=== PATIENT | male | born 1930 | race Asian ===

== ENCOUNTER 2016-03-10 12:05 | Emergency (ER) | payer MEDICARE, OTHER ==
--- NOTE | 2016-03-10 12:38 | ER Document Report ---
ED Medical Screen (RME) - General Stated Complaint: FALL DIZZY Notes: Patient presents emergency department after falling this am and a few days ago. He reports he is dizzy. I have greeted and performed a rapid initial assessment of this patient. A comprehensive ED assessment and evaluation of the patient, analysis of test results and completion of the medical decision making process will be conducted by additional ED providers. I have consulted the attending provider dr Medrano per [facility] guidelines TRAVEL OUTSIDE OF THE [place] IN LAST 30 DAYS: No - Related Data Allergies/Adverse Reactions: No Known Allergies Allergy (Verified 03/10/16 12:39) Past Medical History - Past Medical History Cardiac Medical History: Reports: Hx Hypercholesterolemia, Hx Hypertension Neurological Medical History: Denies: Hx Seizures Physical Exam - Vital signs Vitals: Temp Pulse Resp BP Pulse Ox 97.6 F 73 16 123/68 98 03/10/16 12:11 03/10/16 12:11 03/10/16 12:11 03/10/16 12:11 03/10/16 12:11 Course - Vital Signs Vital signs: Temp Pulse Resp BP Pulse Ox 97.6 F 73 16 123/68 98 03/10/16 12:11 03/10/16 12:11 03/10/16 12:11 03/10/16 12:11 03/10/16 12:11
[2016-03-10 13:28] LABS: BASOPHILS % (AUTO) 0.4 % (0-2); EOSINOPHILS % (AUTO) 1.3 % (0-6); HEMATOCRIT 42.3 % (37.9-51.0); HEMOGLOBIN 13.2 g/dL (13.5-17.0); HGB HCT DIFFERENCE -2.7; MEAN CORPUSCULAR HGB CONC 31.3 g/dL (32.0-36.0); MEAN CORPUSCULAR VOLUME 93 fl (80-97); RED BLOOD COUNT 4.55 10^6/uL (4.35-5.55); RED CELL DISTRIBUTION WIDTH 13.5 % (11.5-14.0); SEGMENTED NEUTROPHILS % (AUTO) 81.3 % (42-78); WHITE BLOOD COUNT 6.9 10^3/uL (4.0-10.5)
[2016-03-10 13:29] LABS: ABSOLUTE EOSINOPHILS # (AUTO) 0.1 10^3/uL (0.0-0.6); ABSOLUTE LYMPHOCYTES (AUTO) 0.8 10^3/uL (0.5-4.7); ABSOLUTE MONOCYTES (AUTO) 0.4 10^3/uL (0.1-1.4); ABSOLUTE NEUT (AUTO) 5.6 10^3/uL (1.7-8.2); APPEARANCE,URINE SLIGHTLY-CLOUDY; BILIRUBIN,URINE NEGATIVE (NEGATIVE); GLUCOSE, URINE NEGATIVE (NEGATIVE); KETONES,URINE NEGATIVE (NEGATIVE); LEUKOCYTE ESTERASE,URINE NEGATIVE (NEGATIVE); NITRITE,URINE NEGATIVE (NEGATIVE); PROTEIN,URINE NEGATIVE (NEGATIVE); URINE SPECIFIC GRAVITY 1.018; UROBILINOGEN,URINE NEGATIVE mg/dL (<2.0)
[2016-03-10 13:43] LABS: ALANINE AMINOTRANSFERASE 29 U/L (21-72); ALBUMIN 4.9 g/dL (3.5-5.0); ALKALINE PHOSPHATASE 84 U/L (38-126); ANION GAP 11 (5-19); ASPARTATE AMINO TRANSFERASE 22 U/L (17-59); BILIRUBIN,TOTAL 0.8 mg/dL (0.2-1.3); BLOOD UREA NITROGEN 31 mg/dL (7-20); CALCIUM 9.5 mg/dL (8.4-10.2); CARBON DIOXIDE 26 mmol/L (22-30); CHLORIDE 103 mmol/L (98-107); CREATINE KINASE 103 U/L (55-170); GLUCOSE 99 mg/dL (75-110); POTASSIUM 4.9 mmol/L (3.6-5.0); SODIUM 140.2 mmol/L (137-145); TOTAL PROTEIN 8.3 g/dL (6.3-8.2)
[2016-03-10 13:54] LABS: CREATINE KINASE MB 0.98 ng/mL (<4.55)
[2016-03-10 13:55] LABS: TROPONIN I < 0.012 ng/mL
--- NOTE | 2016-03-10 14:12 | ER Document Report ---
[id number] Mode of Arrival: Ambulatory Information source: Patient Notes: 85 yr old male presents with complaints of dizziness and fall just prior to arrival. Pt denies any headache, chest pain, sob, difficulty breathing or any other concerns. Pt notes that he felt dizzy and fell, but immediately got up. pt denies any other concerns. TRAVEL OUTSIDE OF THE [place] IN LAST 30 DAYS: No - HPI Onset: Just prior to arrival Onset/Duration: Sudden Quality of pain: No pain Severity: Mild Pain Level: Denies Associated symptoms: None Exacerbated by: Denies Relieved by: Denies Similar symptoms previously: Yes - has fallen 6 times in past 5 years - Related Data Allergies/Adverse Reactions: No Known Allergies Allergy (Verified 03/10/16 12:39) Past Medical History - Social History Smoking Status: Never Smoker Cigarette use (# per day): No Chew tobacco use (# tins/day): No Smoking Education Provided: No Frequency of alcohol use: None Drug Abuse: [place] Family History: Reviewed & Not Pertinent Patient has suicidal ideation: No Patient has homicidal ideation: No - Past Medical History Cardiac Medical History: Reports: Hx Hypercholesterolemia, Hx Hypertension Neurological Medical History: Denies: Hx Seizures Renal/ Medical History: Denies: Hx Peritoneal Dialysis Review of Systems - Review of Systems Notes: REVIEW OF SYSTEMS: CONSTITUTIONAL : Denies fever, chills, or sweats. Denies recent illness. EENT: Denies eye, ear, throat, or mouth pain or symptoms. Denies nasal or sinus congestion or discharge. Denies throat, tongue, or mouth swelling or difficulty swallowing. CARDIOVASCULAR: Denies chest pain. Denies palpitations or racing or irregular heart beat. Denies ankle edema. RESPIRATORY: Denies cough, cold, or chest congestion. Denies shortness of breath, difficulty breathing, or wheezing. GASTROINTESTINAL: Denies abdominal pain or distention. Denies nausea, vomiting , or diarrhea. Denies blood in vomitus, stools, or per rectum. Denies black, tarry stools. Denies constipation. GENITOURINARY: Denies difficulty urinating, painful urination, burning, frequency, blood in urine, or discharge. MUSCULOSKELETAL: Denies back or neck pain or stiffness. Denies joint pain or swelling. SKIN: Denies rash, lesions or sores. HEMATOLOGIC : Denies easy bruising or bleeding. LYMPHATIC: Denies swollen, enlarged glands. NEUROLOGICAL: admits to dizziness of a second that resolved PSYCHIATRIC: Denies anxiety or stress. Denies depression, suicidal ideation, or homicidal ideation. ALL OTHER SYSTEMS REVIEWED AND NEGATIVE. Dictation was performed using [employer] voice recognition software PHYSICAL EXAMINATION: GENERAL: Well-appearing, well-nourished and in no acute distress. HEAD: Atraumatic, normocephalic. EYES: Pupils equal round and reactive to light, extraocular movements intact, sclera anicteric, conjunctiva are normal. ENT: Nares patent, oropharynx clear without exudates. Moist mucous membranes. NECK: Normal range of motion, supple without lymphadenopathy LUNGS: Breath sounds clear to auscultation bilaterally and equal. No wheezes rales or rhonchi. HEART: Regular rate and rhythm without murmurs ABDOMEN: Soft, nontender, nondistended abdomen. No guarding, no rebound. No masses appreciated. Musculoskeletal: Normal range of motion, no pitting or edema. No cyanosis. NEUROLOGICAL: Cranial nerves grossly intact. Normal speech, normal gait. Normal sensory, motor exams PSYCH: Normal mood, normal affect. SKIN: right eyebrow 2 healing superfiical lacerations Physical Exam - Vital signs Vitals: Temp Pulse Resp BP Pulse Ox 97.6 F 73 16 123/68 98 03/10/16 12:11 03/10/16 12:11 03/10/16 12:11 03/10/16 12:11 03/10/16 12:11 Course - Re-evaluation Re-evalutation: 03/10/16 15:35 pt and do not wish to stay and want ot go home, I performed labs and imaging and patient appears stable. i do not beleive there is any life threatening concerns since he had a recent stress test and evaluation by express manager but i insist since he wants to go home that he see a neurologist and express manager. i reevlauted his labs from previous visit at [facility]. After performing a Medical Screening Examination, I estimate there is LOW risk for INTRACRANIAL HEMORRHAGE, ISCHEMIC CVA, MALIGNANT DYSRHYTHMIA, ACUTE CORONARY SYNDROME, MENINGITIS, PULMONARY EMBOLISM, or SEPSIS thus I consider the discharge disposition reasonable. The patient and I have discussed the diagnosis and risks, and we agree with discharging home with close follow-up with the understanding that symptoms and presentations can change. We also discussed returning to the Emergency Department immediately if new or worsening symptoms occur. We have discussed the symptoms which are most concerning (e.g., changing or worsening pain, weakness, vomiting, fever) that necessitate immediate return. - Vital Signs Vital signs: Temp Pulse Resp BP Pulse Ox 98 F 78 18 120/75 99 03/10/16 14:18 03/10/16 14:18 03/10/16 14:18 03/10/16 14:18 03/10/16 14:18 - Laboratory Result Diagrams: 03/10/16 13:00 03/10/16 13:00 Laboratory results interpreted by me: 03/10/16 03/10/16 13:00 13:00 Hgb 13.2 L MCHC 31.3 L Seg Neutrophils % 81.3 H Lymphocytes % 11.0 L BUN 31 H Creatinine 1.40 H Est GFR ( Amer) 58 L Est GFR (Non-Af Amer) 48 L Total Protein 8.3 H - Diagnostic Test Radiology reviewed: Image reviewed, Reports reviewed - EKG Interpretation by Me EKG shows normal: Sinus rhythm, [place], Intervals, QRS Complexes Discharge - Discharge Clinical Impression: Dizziness Fall Qualifiers: Encounter type: initial encounter Qualified Code(s): W19.XXXA - Unspecified fall, initial encounter Condition: Stable Disposition: HOME, SELF-CARE Instructions: Near Syncopal Episode ([facility]) Referrals: SHARLA WELLINGTON MD [ACTIVE STAFF] - Follow up tomorrow
[2016-03-10 14:38] VITALS: BP 120/75
--- NOTE | 2016-03-10 19:24 | EKG REPORT ---
SEVERITY:- NORMAL ECG - SINUS RHYTHM : Confirmed by: Elizabet Bell MD 10-Mar-2016 19:23:35
== END 2016-03-10 14:18 | disposition home or self-care (01) ==
LOC: ER 12:05
DX: R42 Dizziness and giddiness (principal); W19.XXXA Unspecified fall, initial encounter
CPT/HCPCS: 36415; 70450; 71020; 72125; 80053; 81001; 82550; 82553; 84484; 85025; 93005; 93010; 99284

== ENCOUNTER → 2016-03-22 | Outpatient (CLI) | payer MEDICARE, OTHER ==
--- NOTE | 2016-03-23 07:50 | CAROTID DOPPLER PRO FEE REPORT ---
CAROTID DUPLEX DOPPLER REPORT PATIENT NAME: JENNIFER DUONG ROOM#: DATE OF STUDY: 03/22/16 DATE OF : 1930 REFERRING MD: SHARLA WELLINGTON M.D. ORDER NO: [id number] TECHNOLOGIST: ELVIRA INDICATION: Syncope and TIA. STUDY: The color carotid duplex scan was performed with real time images and real time Doppler velocity measurements. Real time images indicated mild bilateral plaque formation. Doppler velocity measurements were as follows: MEASUREMENT: RIGHT LEFT CCA PSV (prox/mid) 71 cm/sec 88 cm/sec CCA PSV (distal) 47 cm/sec 68 cm/sec CCA EDV (prox/mid) 13 cm/sec 14 cm/sec CCA EDV (distal) 11 cm/sec 14 cm/sec ICA PSV (proximal) 66 cm/sec 49 cm/sec ICA PSV (distal) 82 cm/sec 74 cm/sec ICA EDV (proximal) 21 cm/sec 11 cm/sec ICA EDV (distal) 23 cm/sec 24 cm/sec ECA 84 cm/sec 84 cm/sec ICA/CCA RATIO: 1.7 1.1 Vertebrals are patent. Flow is cephalad. FINAL IMPRESSION: MILD BILATERAL PLAQUE FORMATION. LESS THAN 50% STENOTIC FLOW. INTERPRETING PHYSICIAN: SHARLA WELLINGTON M.D. /: LSUD TT: [id number] ID: [id number] /: [id number] TD: [id number] JOB: [id number] cc:SHARLA WELLINGTON M.D. >
== END ==
LOC: SP 12:27
PROVIDERS: ATTEND Specialist
DX: R55 Syncope and collapse (principal); R56.9 Unspecified convulsions
CPT/HCPCS: 93880

== ENCOUNTER 2017-03-31 11:36 | Emergency (ER) | payer MEDICARE, OTHER ==
[2017-03-31] MEDS ORDERED: IPRATROPIUM/ALBUTEROL 0.5-2.5 MG/3 ML AMPUL NEB ONE (12:19)
--- NOTE | 2017-03-31 12:21 | ER Document Report ---
ED Medical Screen (RME) - General Chief Complaint: Chest Congestion Stated Complaint: CONGESTION WITH COUGH Time Seen by Provider: 03/31/17 12:19 Mode of Arrival: Ambulatory Information source: Patient Notes: This is an 86-year-old man with a history of heart disease (pacemaker), dementia , gout who is brought into the emergency room because of cough productive of yellow sputum, low-grade fever and congestion. The patient is accompanied by his legal guardian: They deny significant shortness of breath, chest pain, abdominal pain, vomiting. Patient was seen at the NH and they sent the patient over because of the inability to get a chest x-ray. TRAVEL OUTSIDE OF THE [place] IN LAST 30 DAYS: No - HPI Onset: Yesterday Onset/Duration: Gradual Quality of pain: No pain Severity: None Pain Level: Denies Associated Symptoms: Chills, Cough (nonproductive), Other - Congestion. denies : Chest pain, Shortness of breath Exacerbated by: Denies Relieved by: Denies Similar symptoms previously: Yes Recently seen / treated by doctor: No - Related Data Smoking: Non-smoker Frequency of alcohol use: None Drug Abuse: None Allergies/Adverse Reactions: No Known Allergies Allergy (Verified 03/10/16 12:39) Past Medical History - General Information source: Patient - Social History Cigarette use (# per day): No Chew tobacco use (# tins/day): No Frequency of alcohol use: None Drug Abuse: None Lives with: Guardian Family history: None - Past Medical History Cardiac Medical History: Reports: Hx Hypercholesterolemia, Hx Hypertension Neurological Medical History: Denies: Hx Seizures Renal/ Medical History: Denies: Hx Peritoneal Dialysis Surgical Hx: Negative Review of Systems - Review of Systems Constitutional: Chills, Fever EENT: No symptoms reported Cardiovascular: No symptoms reported Respiratory: See HPI Gastrointestinal: No symptoms reported Genitourinary: No symptoms reported Male Genitourinary: No symptoms reported Musculoskeletal: No symptoms reported Skin: No symptoms reported Hematologic/Lymphatic: No symptoms reported Neurological/Psychological: No symptoms reported Physical Exam - Vital signs Vitals: Temp Pulse Resp BP Pulse Ox 100.0 F 91 18 127/75 H 93 03/31/17 11:47 03/31/17 11:47 03/31/17 11:47 03/31/17 11:47 03/31/17 11:47 Notes: Physical exam: GENERAL: 86-year-old man, alert and oriented 3, no acute distress HEAD: Atraumatic, normocephalic. EYES: Pupils equal round and reactive to light, extraocular movements intact, sclera anicteric, conjunctiva are normal. ENT: TMs normal, nares patent, oropharynx clear without exudates. Moist mucous membranes. NECK: Normal range of motion, supple without obvious mass or JVD. LUNGS: Breath sounds clear to auscultation bilaterally and equal. No wheezes rales or rhonchi. HEART: Regular rate and rhythm without murmurs, rubs or gallops. ABDOMEN: Soft, normoactive bowel sounds. No tenderness to palpation. No guarding, no rebound. No masses appreciated. EXTREMITIES: Normal range of motion, no pitting or edema. No clubbing or cyanosis. NEUROLOGICAL: Cranial nerves II through XII grossly intact. Normal speech, moving all extremities. PSYCH: Normal mood, normal affect. SKIN: Warm, Dry, normal turgor, no rashes or lesions noted. Course - Re-evaluation Re-evalutation: 03/31/17 14:05 Patient did get a nebulizer as a trial to see if you get any relief: He did not have much relief from that. The chest x-ray shows no pneumonia. He was started on Tamiflu for the flu. He looks quite stable for discharge. At the time of discharge, I have instructed the patient at the bedside with regards to return precautions and follow-up recommendations. The opportunity for questions was given. The patient has verbalized understanding of these instructions and the need for follow-up. 03/31/17 16:18 - Vital Signs Vital signs: Temp Pulse Resp BP Pulse Ox 98.9 F 84 20 132/69 H 97 03/31/17 14:05 03/31/17 14:05 03/31/17 14:05 03/31/17 14:05 03/31/17 14:05 - Diagnostic Test Radiology reviewed: Image reviewed, Reports reviewed - Chest x-ray is clear Doctor's Discharge - Discharge Clinical Impression: Influenza Condition: Stable Disposition: HOME, SELF-CARE Instructions: Influenza ([facility]) Additional Instructions: As we discussed, chest x-ray showed no evidence of pneumonia. You were started on Tamiflu in the ER. Take the Tamiflu as prescribed (take the second dose before bedtime tonight. Return to the emergency room for any worsening shortness of breath, difficulty breathing or any concerns or getting worse. Prescriptions: Oseltamivir Phosphate [Tamiflu 75 mg Capsule] 75 mg PO BID #9 capsule
--- NOTE | 2017-03-31 13:37 | RADIOLOGY REPORT (SQ) ---
EXAM DESCRIPTION: CHEST PA/LAT COMPLETED DATE/TIME: 03/31/2017 1:25 pm REASON FOR STUDY: cough, fever COMPARISON: None. EXAM PARAMETERS: NUMBER OF VIEWS: two views TECHNIQUE: Digital Frontal and Lateral radiographic views of the chest acquired. RADIATION DOSE: NA LIMITATIONS: none FINDINGS: LUNGS AND PLEURA: COPD. Pleural-parenchymal scarring in the right upper lobe. Lungs appe ar free of active infiltrates. Effusions. MEDIASTINUM AND HILAR STRUCTURES: No masses or contour abnormalities. HEART AND VASCULAR STRUCTURES: Heart normal size. No evidence for failure. BONES: Moderate thoracic spondylosis. HARDWARE: Left subclavian pacer with 1 lead in right atrium and 1 right ventricle. OTHER: No other significant finding. IMPRESSION: COPD without evidence of acute cardiopulmonary disease. TECHNICAL DOCUMENTATION: JOB ID: [id number] [employer]- All Rights Reserved
[2017-03-31 13:52] LABS: A TYPE INFLUENZA AG NEGATIVE (NEGATIVE); B INFLUENZA AG POSITIVE (NEGATIVE)
[2017-03-31] MEDS ORDERED: OSELTAMIVIR PHOSPHATE 75 MG CAPSULE PO ONE (14:03)
[2017-03-31 14:07] VITALS: BP 132/69
== END 2017-03-31 14:14 | disposition home or self-care (01) ==
LOC: ER 11:36
DX: J11.1 Influenza due to unidentified influenza virus with other respiratory manifestations (principal); R09.89 Other specified symptoms and signs involving the circulatory and respiratory systems; R05 Cough; F03.90 Unspecified dementia, unspecified severity, without behavioral disturbance, psychotic disturbance, mood disturbance, and anxiety; R50.9 Fever, unspecified
CPT/HCPCS: 94640; 99284; 87804; 71046; A9270 ×2; J3490; J7620

== ENCOUNTER 2018-04-14 11:15 | Emergency (ER) | payer MEDICARE, OTHER ==
--- NOTE | 2018-04-14 11:48 | ER Document Report ---
ED Extremity Problem, Lower - General Chief Complaint: Knee Injury Stated Complaint: LEFT KNEE PAIN Time Seen by Provider: 04/14/18 11:48 Notes: [id number] male to the emergency department for evaluation of left knee pain. Patient states that he tripped over a parking bumper. Landed on his left knee. Did not hit his head. Did not lose consciousness. Complaining of isolated pain in the left knee area. Patient did land on his hands as well and has a few scratches on his right knuckles. No hip pain. Having difficulty standing due to the pain in the left knee so EMS was called. TRAVEL OUTSIDE OF THE [place] IN LAST 30 DAYS: No - HPI Patient complains to provider of: Pain, Swelling Location: Knee Occurred: Just prior to arrival Where: [place] Onset/Duration: Sudden Quality of pain: Achy, Throbbing Severity: Moderate Pain Level: 1 Associated symptoms: Painful ambulation, Unable to bear weight. denies: Rapid heart rate Exacerbated by: Walking - Related Data Allergies/Adverse Reactions: No Known Allergies Allergy (Verified 03/10/16 12:39) Past Medical History - General Information source: Patient - Social History Smoking Status: Former Smoker Frequency of alcohol use: None Drug Abuse: None Lives with: Alone Family History: Reviewed & Not Pertinent Patient has suicidal ideation: No Patient has homicidal ideation: No - Past Medical History Cardiac Medical History: Reports: Hx Hypercholesterolemia, Hx Hypertension Neurological Medical History: Denies: Hx Seizures Renal/ Medical History: Denies: Hx Peritoneal Dialysis Past Surgical History: Reports: Hx Cardiac Catheterization - pacemaker Review of Systems - Review of Systems Notes: Constitutional: denies: Chills, Diaphoresis, Fever, Malaise, Weakness EENT: denies: Eye discharge, Blurred vision, Tearing, Double vision, Nose congestion, Nose discharge, Throat swelling, Mouth pain Cardiovascular: denies: Palpitations, Heart racing, Orthopnea, Dyspnea, Chest pain Respiratory: denies: Cough, Hurts to breathe, Wheezing, Shortness of breath Gastrointestinal: denies: Abdominal pain, Diarrhea, Nausea, Vomiting, Black stools, bright red blood in stool Genitourinary: denies: Burning, Dysuria, Discharge, Frequency, Flank pain, Hematuria Musculoskeletal: denies: Muscle pain, Muscle stiffness, back pain. Positive for left knee pain and left swelling. Hematologic/Lymphatic: denies: Anemia, Easy bleeding, Easy bruising, Blood clots Neurological/Psychological: denies: Confusion, Dementia, Depression, Loss of consciousness Skin: No lesions, no masses, no skin breakdown, no abscesses. +abrasions on right hand. Physical Exam - Vital signs Vitals: Temp Pulse Resp BP Pulse Ox 97.3 F 79 18 165/90 H 99 04/14/18 11:15 04/14/18 11:15 04/14/18 11:15 04/14/18 11:15 04/14/18 11:15 Interpretation: Normal - General General appearance: Appears well, Alert - HEENT Head: Normocephalic, Atraumatic Eyes: Normal Pupils: PERRL - Respiratory Respiratory status: No respiratory distress Chest status: Nontender Breath sounds: Normal Chest palpation: Normal - Cardiovascular Rhythm: Regular Heart sounds: Normal auscultation Murmur: No - Abdominal Inspection: Normal Distension: No distension Bowel sounds: Normal Tenderness: Nontender Organomegaly: No organomegaly - Back Back: Normal, Nontender - Extremities General upper extremity: Normal inspection, Nontender, Normal color, Normal ROM, Normal temperature General lower extremity: Normal inspection, Tender - Tenderness to palpation to the left knee area with small abrasion to the patella area. No deformity of the pelvis. No pelvic instability or hip pain. Full range of motion of all joints. Thinks may help 15, Edema, Normal color, Normal ROM, Normal temperature. No: Umesh's sign - Neurological Neuro grossly intact: Yes Cognition: Normal Orientation: AAOx4 [place] Coma Scale Eye Opening: Spontaneous [place] Coma Scale Verbal: Oriented [place] Coma Scale Motor: Obeys Commands [place] Coma Scale Total: 15 Speech: Normal Motor strength normal: LUE, RUE, LLE, RLE Sensory: Normal - Psychological Associated symptoms: Normal affect, Normal mood - Skin Skin Temperature: Warm Skin Moisture: Dry Skin Color: Normal, Other - Small abrasion noted to the left knee. Small abrasion noted to right hand dorsum digit #3 in digit #5. No laceration. Course - Re-evaluation Re-evalutation: 04/14/18 14:00 Knee X-Ray 04/14/18 11:48 IMPRESSION: Nondisplaced fracture of the proximal tibia. Lower Extremity CT 04/14/18 12:48 IMPRESSION: Nondisplaced fracture of the proximal tibia extending medial inferior to central superior the level the tibial spine. Similar appearance 2 plain radiographic findings. Joint effusion. 04/14/18 14:01 Patient has non-displaced tibial fx, consulted ortho, will see as outpatiient. Will d/c. - Vital Signs Vital signs: Temp Pulse Resp BP Pulse Ox 97.3 F 78 18 143/88 H 98 04/14/18 11:22 04/14/18 13:43 04/14/18 13:43 04/14/18 13:43 04/14/18 13:43 Discharge - Discharge Clinical Impression: Tibial plateau fracture, left Qualifiers: Encounter type: initial encounter Fracture type: closed Qualified Code(s): S82.142A - Displaced bicondylar fracture of left tibia, initial encounter for closed fracture Condition: Good Disposition: HOME, SELF-CARE Instructions: Ice & Elevation ([facility]), Use of Crutches ([facility]), Fractured Tibia ([facility]) Additional Instructions: You have a fracture to your tibia which is one of the long bones in the lower leg. You will need to be seen by orthopedic surgery as follow-up. At this time there is no surgery that is that is needed. Please wear the knee immobilizer. Elevate it and ice it. Pain medication as needed. Follow-up as instructed. Prescriptions: Docusate Sodium [Colace 100 mg Capsule] 100 mg PO DAILY 30 Days #60 capsule Hydrocodone/Acetaminophen [[place] 5-325 mg Tablet] 1 tab PO TID PRN 5 Days #20 tablet PRN Reason: For Breakthrough Pain Referrals: CHUCKY TORRES MD [ACTIVE STAFF] - Follow up in 3-5 days
--- NOTE | 2018-04-14 12:42 | RADIOLOGY REPORT (SQ) ---
EXAM DESCRIPTION: KNEE LEFT 3 VIEWS COMPLETED DATE/TIME: 04/14/2018 12:35 pm REASON FOR STUDY: fall COMPARISON: None. NUMBER OF VIEWS: Three views. TECHNIQUE: AP, lateral, and sunrise patella radiographic images acquired of the left knee. LIMITATIONS: None. FINDINGS: MINERALIZATION: Normal. BONES: Nondisplaced fracture of the proximal tibia extending inferior medial to the central tibial sp ine. JOINT: Joint effusion. SOFT TISSUES: No soft tissue swelling. No radio-opaque foreign body. OTHER: No other significant finding. IMPRESSION: Nondisplaced fracture of the proximal tibia. TECHNICAL DOCUMENTATION: JOB ID: [id number] [employer]- All Rights Reserved Reading location - IP/workstation name: [email or web address]
[2018-04-14] MEDS ORDERED: HYDROCODONE/ACETAMINOPHEN 5-325 MG TABLET PO ONE (13:21)
--- NOTE | 2018-04-14 13:48 | RADIOLOGY REPORT (SQ) ---
EXAM DESCRIPTION: CT LT LOWER EXTREMITY WITHOUT COMPLETED DATE/TIME: 04/14/2018 1:35 pm REASON FOR STUDY: fall, possible fracture, + pain COMPARISON: Plain radiograph which shows fracture. TECHNIQUE: Axial imaging performed through the tibia with reformatted coronal and sagittal imaging w indowed for bone and soft tissues. Images saved to PACS. 3D IMAGING: Were 3D images as MIP, SSD, or volume rendering performed at the work station? No All CT scanners at this facility use dose modulation, iterative reconstruction, and/or weight based d osing when appropriate to reduce radiation dose to as low as reasonably achievable (ALARA). [facility]: Dose Right [facility]: CareDose [facility]: Dose Right [facility]: Teradose 4D [facility]: [employer] LIMITATIONS: None. RADIATION DOSE: CT Rad equipment meets quality standard of care and radiation dose reduction techniq ues were employed. CTDIvol: 4.1 mGy. DLP: 213 mGy-cm. mGy. FINDINGS: SOFT TISSUES: Small joint effusion. BONES: Nondisplaced fracture extending inferior medial to central superior at the level of the is tib ial spine. No intra-articular loose bodies. MINERALIZATION: Osteopenia OTHER: No other significant finding. IMPRESSION: Nondisplaced fracture of the proximal tibia extending medial inferior to central superio r the level the tibial spine. Similar appearance 2 plain radiographic findings. Joint effusion. TECHNICAL DOCUMENTATION: JOB ID: [id number] Quality ID # [id number]: Final reports with documentation of one or more dose reduction techniques (e.g., Au tomated exposure control, adjustment of the mA and/or kV according to patient size, use of iterative reconstruction technique) 2010 [employer]- All Rights Reserved Reading location - IP/workstation name: [email or web address]
[2018-04-14] MEDS ORDERED: KETOROLAC TROMETHAMINE 60 MG/2 ML SDV IM ONE (14:05)
[2018-04-14 15:48] LABS: ABSOLUTE BASOPHILS # (AUTO) 0.1 10^3/uL (0.0-0.2); ABSOLUTE EOSINOPHILS # (AUTO) 0.1 10^3/uL (0.0-0.6); ABSOLUTE LYMPHOCYTES (AUTO) 0.9 10^3/uL (0.5-4.7); ABSOLUTE MONOCYTES (AUTO) 0.3 10^3/uL (0.1-1.4); ABSOLUTE NEUT (AUTO) 5.9 10^3/uL (1.7-8.2); BASOPHILS % (AUTO) 1.5 % (0-2); EOSINOPHILS % (AUTO) 1.5 % (0-6); HEMOGLOBIN 12.6 g/dL (13.5-17.0); LYMPHOCYTES % (AUTO) 12.1 % (13-45); MEAN CORPUSCULAR HEMOGLOBIN 31.3 pg (27.0-33.4); MEAN CORPUSCULAR HGB CONC 34.9 g/dL (32.0-36.0); MEAN CORPUSCULAR VOLUME 90 fl (80-97); MONOCYTES % (AUTO) 4.5 % (3-13); PLATELET COUNT 236 10^3/uL (150-450); RED BLOOD COUNT 4.01 10^6/uL (4.35-5.55); RED CELL DISTRIBUTION WIDTH 14.6 % (11.5-14.0); SEGMENTED NEUTROPHILS % (AUTO) 80.4 % (42-78); TOTAL CELLS COUNTED % (AUTO) 100 %; WHITE BLOOD COUNT 7.3 10^3/uL (4.0-10.5)
[2018-04-14 16:23] LABS: INTERNATIONAL RATION (INR) 1.05; PROTHROMBIN TIME 14.2 SEC (11.4-15.4)
[2018-04-14 16:24] LABS: PARTIAL THROMBOPLASTIN TIME 30.9 SEC (23.5-35.8)
[2018-04-14 16:30] LABS: ALANINE AMINOTRANSFERASE 22 U/L (21-72); ALBUMIN 4.3 g/dL (3.5-5.0); ALKALINE PHOSPHATASE 94 U/L (38-126); ANION GAP 9 (5-19); ASPARTATE AMINO TRANSFERASE 25 U/L (17-59); BILIRUBIN,DIRECT 0.4 mg/dL (0.0-0.4); BILIRUBIN,TOTAL 0.8 mg/dL (0.2-1.3); BLOOD UREA NITROGEN 27 mg/dL (7-20); CALCIUM 9.2 mg/dL (8.4-10.2); CARBON DIOXIDE 27 mmol/L (22-30); CHLORIDE 105 mmol/L (98-107); GLUCOSE 96 mg/dL (75-110); POTASSIUM 4.1 mmol/L (3.6-5.0); SODIUM 141.1 mmol/L (137-145); TOTAL PROTEIN 7.6 g/dL (6.3-8.2)
[2018-04-14 17:34] VITALS: BP 152/79
== END 2018-04-14 17:36 | disposition other institution (70) ==
LOC: ER 11:15 → UNDOADMIN 15:22 → EH 15:22 → ER 17:36
DX: S82.142A Displaced bicondylar fracture of left tibia, initial encounter for closed fracture (principal); S60.412A Abrasion of right middle finger, initial encounter; S60.416A Abrasion of right little finger, initial encounter; W01.0XXA Fall on same level from slipping, tripping and stumbling without subsequent striking against object, initial encounter; Y92.481 Parking lot as the place of occurrence of the external cause; I10 Essential (primary) hypertension; Z87.891 Personal history of nicotine dependence
CPT/HCPCS: 99284; 96372; 36415; 85025; 85610; 85730; 80053; 73562; 73700; L1830; J1885; A9270

== ENCOUNTER 2018-04-16 13:30 | Emergency (ER) | payer MEDICARE, OTHER ==
[2018-04-16] MEDS ORDERED: HYDROCODONE/ACETAMINOPHEN 5-325 MG TABLET PO ONE (14:13)
--- NOTE | 2018-04-16 14:14 | ER Document Report ---
ED Extremity Problem, Upper - General Chief Complaint: Arm Pain Stated Complaint: FALL/RIGHT ELBOW PAIN Time Seen by Provider: 04/16/18 14:13 TRAVEL OUTSIDE OF THE [place]. IN LAST 30 DAYS: No - Related Data Allergies/Adverse Reactions: No Known Allergies Allergy (Verified 03/10/16 12:39) Past Medical History - Social History Family History: Reviewed & Not Pertinent - Past Medical History Cardiac Medical History: Reports: Hx Hypercholesterolemia, Hx Hypertension Neurological Medical History: Denies: Hx Seizures Renal/ Medical History: Denies: Hx Peritoneal Dialysis Past Surgical History: Reports: Hx Cardiac Catheterization - pacemaker Physical Exam - Vital signs Vitals: Temp Pulse Resp BP Pulse Ox 98.4 F 94 18 141/85 H 95 04/16/18 13:42 04/16/18 13:42 04/16/18 13:42 04/16/18 13:42 04/16/18 13:42 Course - Vital Signs Vital signs: Temp Pulse Resp BP Pulse Ox 98.4 F 94 18 141/85 H 95 04/16/18 13:42 04/16/18 13:42 04/16/18 13:42 04/16/18 13:42 04/16/18 13:42
--- NOTE | 2018-04-16 14:22 | ER Document Report ---
ED Extremity Problem, Upper - General Chief Complaint: Arm Pain Stated Complaint: FALL/RIGHT ELBOW PAIN Time Seen by Provider: 04/16/18 14:13 Primary Care Provider: [facility] [Primary Care Provider] - Follow up as needed Information source: Patient Notes: Patient is an 87-year-old male who presents here after the patient had a witnessed fall 2 days ago. He initially was seen and evaluated and diagnosed with a tibial plateau fracture of the left leg and placed in a knee immobilizer. Patient states that the legs pain is under control but he started to have some persistent pain to the right elbow since the fall. He denies hitting his head, neck pain, rib pain, shortness of breath, midline back pain, nominal pain, pelvis pain. No cough, fevers, or vomiting. No x-ray of the elbow or arm was performed on previous visit. TRAVEL OUTSIDE OF THE [place] IN LAST 30 DAYS: No - Related Data Allergies/Adverse Reactions: No Known Allergies Allergy (Verified 03/10/16 12:39) Past Medical History - Social History Smoking Status: Unknown if Ever Smoked Family History: Reviewed & Not Pertinent - Past Medical History Cardiac Medical History: Reports: Hx Hypercholesterolemia, Hx Hypertension Neurological Medical History: Denies: Hx Seizures Renal/ Medical History: Denies: Hx Peritoneal Dialysis Past Surgical History: Reports: Hx Cardiac Catheterization - pacemaker Review of Systems - Review of Systems Constitutional: denies: Fever EENT: denies: Eye discharge, Nose discharge Cardiovascular: denies: Chest pain, Palpitations Respiratory: denies: Short of breath Gastrointestinal: denies: Vomiting Genitourinary: denies: Dysuria -: Yes All other systems reviewed and negative Physical Exam - Vital signs Vitals: Temp Pulse Resp BP Pulse Ox 98.4 F 94 18 141/85 H 95 04/16/18 13:42 04/16/18 13:42 04/16/18 13:42 04/16/18 13:42 04/16/18 13:42 Notes: Reviewed vital signs and nursing note as charted by RN. CONSTITUTIONAL: Alert and oriented and responds appropriately to questions. Well-appearing; well-nourished HEAD: Normocephalic; atraumatic EYES: PERRL ENT: Normal nose; no rhinorrhea; moist mucous membranes; pharynx without lesions noted NECK: Supple without meningismus; non-tender to the midline spine CARD: Regular rate and rhythm; no murmurs; symmetric distal pulses RESP: Normal chest excursion without splinting or tachypnea; breath sounds clear and equal bilaterally; no tenderness to anterior posterior palpation of the ribs ABD/GI: Normal bowel sounds; non-distended; soft, non-tender BACK: The back appears normal and is non-tender to palpation of the midline spine EXT: Patient's left leg is in a knee immobilizer. I gently remove the immobilizer. Some mild 2+ edema to the krishnan. Strong distal pulses with good coloration to the feet. Patient has some mild tenderness and swelling to the right elbow. Strong distal pulses and park guard strength on the right hand. No tenderness to the right shoulder, right forearm, wrist, or hand SKIN: No acute lesions noted NEURO: CN 2-12 intact; 5/5 bilateral upper and lower extremity strength with sensation intact to light touch PSYCH: The patient's mood and manner are appropriate. Grooming and personal hyg iene are appropriate Course - Re-evaluation Re-evalutation: 04/16/18 14:52 Given the history and physical examination, we will obtain an x-ray of the right elbow. No obvious compartment syndrome to the left leg noted. 04/16/18 15:08 X-ray as recorded. I have called and spoken to the information systems specialist Dr. Vincent who has seen and assessed the patient. He does not believe this requires operative repair but believes that the patient should be placed in a posterior mold. He has also looked at the tibial fracture from previously 2 days ago and states he does not believe that this requires operative intervention either. Family is at bedside and I will discussed the case. 04/16/18 16:56 Case management worker has seen and assessed the patient. She believes she can have the patient into [facility] long-term facility. Patient is agreeable with this plan. We have ordered a food tray and will have the patient here as a social hold. - Vital Signs Vital signs: Temp Pulse Resp BP Pulse Ox 98.4 F 94 18 141/85 H 95 04/16/18 13:42 04/16/18 13:42 04/16/18 13:42 04/16/18 13:42 04/16/18 13:42 Discharge - Discharge Clinical Impression: Accidental fall Qualifiers: Encounter type: initial encounter Qualified Code(s): W19.XXXA - Unspecified fall, initial encounter Fracture, supracondylar, elbow, right, closed Qualifiers: Encounter type: initial encounter Qualified Code(s): S42.411A - Displaced simple supracondylar fracture without intercondylar fracture of right humerus, initial encounter for closed fracture Condition: Fair Disposition: [facility]errals: [facility] [Primary Care Provider] - Follow up as needed
--- NOTE | 2018-04-16 14:29 | RADIOLOGY REPORT (SQ) ---
EXAM DESCRIPTION: ELBOW RIGHT OVER 2 VIEWS COMPLETED DATE/TIME: 04/16/2018 2:16 pm REASON FOR STUDY: arm pain/fall COMPARISON: None. NUMBER OF VIEWS: Four views. TECHNIQUE: AP, lateral, and both oblique radiographic images acquired of the right elbow. LIMITATIONS: None. FINDINGS: MINERALIZATION: Normal. BONES: Slightly displaced supracondylar fracture of the distal humerus. Degenerative changes at the elbow joint. JOINT: Prominent anterior fat pad suggest effusion. SOFT TISSUES: Soft tissue swelling. OTHER: No other significant finding. IMPRESSION: 1. Slightly displaced supracondylar fracture of the distal humerus. 2. Degenerative changes at the elbow. COMMENT: 1. Results of this examination were discussed with the emergency department provider on 04/16/2018 at 14:22 hours. TECHNICAL DOCUMENTATION: JOB ID: [id number] [employer]- All Rights Reserved Reading location - IP/workstation name: [email or web address]
[2018-04-17] MEDS ORDERED: LORAZEPAM 0.5 MG TABLET PO ONE (00:34)
[2018-04-17] MEDS ORDERED: ACETAMINOPHEN 325 MG TABLET PO ONE ×2 (00:36→21:01)
--- NOTE | 2018-04-17 04:08 | RADIOLOGY REPORT (SQ) ---
EXAM DESCRIPTION: XR CHEST 1 VIEW COMPLETED DATE/TME: 04/17/2018 03:41 CLINICAL HISTORY: 87 years, Male, Cough COMPARISON: 03/31/2017 chest NUMBER OF VIEWS: 1 TECHNIQUE: Portable chest LIMITATIONS: None. FINDINGS: Heart size at the upper limits of normal but stable. Ectasia thoracic aorta. Osteopenia. Right greater than left apical pleural thickening and scarring. Underlying emphysema. Left-sided pacing device. No pneumothorax IMPRESSION: Underlying emphysema with biapical pleural thickening/scarring. No acute cardiopulmonary process copyright 2010 [employer]- All Rights Reserved
[2018-04-17] MEDS ORDERED: FUROSEMIDE 40 MG TABLET ONE (05:35)
[2018-04-17] MEDS: AMLODIPINE BESYLATE 5 MG TABLET PO SCH (09:21)
[2018-04-17] MEDS: DONEPEZIL HCL 5 MG TABLET PO SCH (09:21)
[2018-04-17] MEDS: FERROUS SULFATE 325 MG TABLET PO SCH (09:21)
[2018-04-17] MEDS: FUROSEMIDE 20 MG TABLET PO SCH (09:25)
--- NOTE | 2018-04-17 10:03 | ER Document Report ---
Doctor's Note Notes: 04/17/18 10:01 Patient seen and examined. He did have some breakfast this morning. He states his pain in his elbow and knee are well controlled. He denies any issues at this time. Awaiting placement. Head is normocephalic. Heart is regular rate and rhythm. Lungs are clear to auscultation bilaterally. Right upper extremity has a posterior OCL in place. Fingers show good capillary refill and intact sensation. Patient's left lower extremity is in a knee immobilizer, distally intact. Plan is to discharge for placement when a bed is available.
[2018-04-18 06:58] VITALS: BP 121/65
[2018-04-18] MEDS: AMLODIPINE BESYLATE 5 MG TABLET PO SCH (09:23)
[2018-04-18] MEDS: DONEPEZIL HCL 5 MG TABLET PO SCH (09:23)
[2018-04-18] MEDS: FERROUS SULFATE 325 MG TABLET PO SCH (09:25)
[2018-04-18] MEDS: FUROSEMIDE 20 MG TABLET PO SCH (09:25)
--- NOTE | 2018-04-18 10:03 | ER Document Report ---
Doctor's Note Notes: 04/18/18 10:01 Patient interviewed and examined. He states his pain is well controlled. Declines any stronger pain medication at this time. Eating and drinking normally. Comfortable with discharge plan to SNF. Heart is regular rate and rhythm. Lungs are clear to auscultation bilaterally. Examination right upper extremity yields OCL still in place. Mild edema the fingers but neurovascularly intact. Left lower extremity in knee immobilizer. Dorsalis pedis pulse 2+, sensation intact. Plan is to discharge to nursing facility today. POA and patient are on board with plan.
== END 2018-04-18 11:22 ==
LOC: ER 13:30
DX: S42.411A Displaced simple supracondylar fracture without intercondylar fracture of right humerus, initial encounter for closed fracture (principal); W18.30XA Fall on same level, unspecified, initial encounter
CPT/HCPCS: 99284; 73080; L1830; A9270 ×9

== ENCOUNTER 2018-04-30 07:31 | Day surgery (SDC) | payer MEDICARE, OTHER ==
[~2018-04-30 07:31] MED LIST: CEFAZOLIN 2 GM/D5W RTU 2 GM/50 ML RTUPB IV PRN
[2018-04-30 08:44] LABS: HEMATOCRIT 37.6 % (37.9-51.0); HEMOGLOBIN 12.7 g/dL (13.5-17.0); MEAN CORPUSCULAR HEMOGLOBIN 30.4 pg (27.0-33.4); MEAN CORPUSCULAR HGB CONC 33.7 g/dL (32.0-36.0); MEAN CORPUSCULAR VOLUME 90 fl (80-97); PLATELET COUNT 304 10^3/uL (150-450); RED BLOOD COUNT 4.17 10^6/uL (4.35-5.55); RED CELL DISTRIBUTION WIDTH 13.1 % (11.5-14.0); WHITE BLOOD COUNT 9.8 10^3/uL (4.0-10.5)
[2018-04-30] MEDS ORDERED: ALBUTEROL SULFATE 0.083% NEB 2.5 MG/3 ML AMPUL NEB ONE (08:46)
--- NOTE | 2018-04-30 08:48 | EKG REPORT ---
SEVERITY:- NORMAL ECG - SINUS RHYTHM : Confirmed by: Misty Espinosa 30-Apr-2018 08:47:17
[2018-04-30 09:01] LABS: ANION GAP 8 (5-19); BLOOD UREA NITROGEN 34 mg/dL (7-20); CALCIUM 9.1 mg/dL (8.4-10.2); CARBON DIOXIDE 28 mmol/L (22-30); CHLORIDE 102 mmol/L (98-107); GLUCOSE 107 mg/dL (75-110); POTASSIUM 4.7 mmol/L (3.6-5.0); SODIUM 137.7 mmol/L (137-145)
[2018-04-30] MEDS ORDERED: FENTANYL CITRATE INJ/PF 100 MCG/2 ML AMPUL ONE (09:01)
[2018-04-30] MEDS ORDERED: PROPOFOL INJ 200 MG/20 ML VIAL IV ONE (09:01)
[2018-04-30] MEDS ORDERED: DEXAMETHASONE SOD PHOSPHATE INJ 4 MG/1 ML VIAL ONE (09:01)
[2018-04-30] MEDS ORDERED: MIDAZOLAM 2 MG/2 ML INJ ONE (09:01)
[2018-04-30] MEDS ORDERED: ONDANSETRON HCL INJ/PF 4 MG/2 ML SDV ONE (09:01)
[2018-04-30] MEDS ORDERED: ACETAMINOPHEN 1,000 MG/100 ML RTUPB IV ONE (09:01)
[2018-04-30] MEDS ORDERED: BUPIVACAINE HCL 0.5%-EPI 1:200000 INJ/PF 30 ML VIAL ONE (09:45)
[2018-04-30] MEDS ORDERED: CEFAZOLIN INJ 1 GM VIAL ONE (09:51)
[2018-04-30] MEDS ORDERED: OXYCODONE-ACETAMINOPHEN 5-325 MG TABLET PO PRN ×2 (10:22)
[2018-04-30] MEDS ORDERED: FENTANYL CITRATE INJ/PF 100 MCG/2 ML AMPUL IV PRN ×3 (10:22)
[2018-04-30] MEDS ORDERED: ONDANSETRON HCL INJ/PF 4 MG/2 ML SDV IV PRN (10:22)
[2018-04-30] MEDS ORDERED: MEPERIDINE HCL/PF INJ 25 MG/1 ML DISP.SYRIN IV PRN (10:22)
[2018-04-30] MEDS ORDERED: MORPHINE SULFATE 10 MG/ML INJ IV PRN ×2 (10:22→12:03)
[2018-04-30] MEDS ORDERED: PROMETHAZINE HCL INJ 25 MG/1 ML VIAL IV PRN ×2 (10:22)
[2018-04-30] MEDS ORDERED: DIPHENHYDRAMINE HCL 50 MG/ML VIAL IV PRN (10:22)
--- NOTE | 2018-04-30 11:21 | Operative Report ---
Operative Report DATE OF SURGERY: 04/30/18 PREOPERATIVE DIAGNOSIS: Left medial tibial plateau fracture. Right supracondyl ar humerus fracture OPERATION: Open reduction internal fixation right supracondylar humerus fracture. Open reduction internal fixation left medial tibial plateau fracture SURGEON: CHUCKY TORRES ANESTHESIA: GA ESTIMATED BLOOD LOSS: 50 PROCEDURE: With the patient supine on the operative table left lower extremities prepped and draped in a sterile fashion. Under fluoroscopic guidance pins for the Stephanie 6.5 titanium screw set were placed across the medial plateau fracture from medial to lateral grabbing lateral cortex. There is an anatomic reduction of the fracture. Subsequently 2 6.5 screws were placed over these pins to secure the fracture reduction. The patient is now reprepped and draped involving the right upper extremity. The extremity is elevated for exsanguination tourniquet inflated 280 torr. A longitudinal incision was made over the medial aspect of the distal humeral metadiaphysis and sharp dissection was carried incision down to the ulnar nerve. This is identified and isolated along the surgical exposure and tagged with a vessel loop. Next the medial column of the humerus is identified. A Stephanie titanium medial distal humeral plate is applied to the distal fragment. A pin is then placed percutaneously through the lateral column for rotational stability. The medial plate is then secured to the distal humeral metaphysis in near-anatomic alignment. It secured with 3 screws proximally and 2 screws distally. Next a 4.0 cannulated screw was placed through the lateral epicondyle and extending up the lateral column to provide rotational stability. The construct and the hardware placement are reviewed fluoroscopically and felt to be adequate. The tourniquet is deflated. Hemostasis obtained with electrocautery. The wound is irrigated with bulb lavage. A subsequent closed using interrupted Vicryl followed by leif. A sterile compressive dressing is applied. The patient's return to the PACU in satisfactory condition.
[2018-04-30] MEDS ORDERED: ONDANSETRON 4 MG TAB.RAPDIS PO PRN (12:04)
--- NOTE | 2018-04-30 14:21 | RADIOLOGY REPORT (SQ) ---
EXAM DESCRIPTION: NO CHG FLUORO; TIBIA FIBULA LEFT COMPLETED DATE/TIME: 04/30/2018 2:08 pm REASON FOR STUDY: PERC PINNING LEFT TIB FIB ASST WITH FLUORO IN OR S82.201A UNSP FRACTURE OF SHAFT OF RIGHT TIBIA, INIT FOR DIANE S52.501A UNSP FRACTURE OF THE LOWER END OF RIGHT RADIUS, INI COMPARISON: None. FLUOROSCOPY TIME: 0.1 minute 2 images saved to PACS. TECHNIQUE: Intra-operative images acquired during surgical procedure to evaluate progress. NUMBER OF IMAGES: 2 LIMITATIONS: None. FINDINGS: 2 cancellous screws tibial plateau from medial approach. Alignment anatomic. IMPRESSION: IMAGE(S) OBTAINED DURING PROCEDURE. COMMENT: Quality ID 145: Final reports for procedures using fluoroscopy that document radiation exp osure indices, or exposure time and number of fluorographic images (if radiation exposure indices are not available) Please consult full operative report of the attending physician for description of the procedure. TECHNICAL DOCUMENTATION: JOB ID: [id number] [employer]- All Rights Reserved Reading location - IP/workstation name: [email or web address]
--- NOTE | 2018-04-30 14:21 | RADIOLOGY REPORT (SQ) ---
EXAM DESCRIPTION: NO CHG FLUORO; TIBIA FIBULA LEFT COMPLETED DATE/TIME: 04/30/2018 2:08 pm REASON FOR STUDY: PERC PINNING LEFT TIB FIB ASST WITH FLUORO IN OR S82.201A UNSP FRACTURE OF SHAFT OF RIGHT TIBIA, INIT FOR DIANE S52.501A UNSP FRACTURE OF THE LOWER END OF RIGHT RADIUS, INI COMPARISON: None. FLUOROSCOPY TIME: 0.1 minute 2 images saved to PACS. TECHNIQUE: Intra-operative images acquired during surgical procedure to evaluate progress. NUMBER OF IMAGES: 2 LIMITATIONS: None. FINDINGS: 2 cancellous screws tibial plateau from medial approach. Alignment anatomic. IMPRESSION: IMAGE(S) OBTAINED DURING PROCEDURE. COMMENT: Quality ID 145: Final reports for procedures using fluoroscopy that document radiation exp osure indices, or exposure time and number of fluorographic images (if radiation exposure indices are not available) Please consult full operative report of the attending physician for description of the procedure. TECHNICAL DOCUMENTATION: JOB ID: [id number] [employer]- All Rights Reserved Reading location - IP/workstation name: [email or web address]
--- NOTE | 2018-04-30 14:24 | RADIOLOGY REPORT (SQ) ---
EXAM DESCRIPTION: NO CHG FLUORO; ELBOW RIGHT AP/LAT COMPLETED DATE/TIME: 04/30/2018 2:08 pm; 04/30/2018 2:09 pm REASON FOR STUDY: ORIF RT ELBOW ASST WITH FLUORO IN OR S82.201A UNSP FRACTURE OF SHAFT OF RIGHT TIB IA, INIT FOR DIANE S52.501A UNSP FRACTURE OF THE LOWER END OF RIGHT RADIUS, INI COMPARISON: None. FLUOROSCOPY TIME: 0.6 minutes 3 images saved to PACS. TECHNIQUE: Intra-operative images acquired during surgical procedure to evaluate progress. NUMBER OF IMAGES: 3 LIMITATIONS: None. FINDINGS: Plate and screws fixation supracondylar fracture medial approach. Cancellous bone screw o verlying lateral epicondyle from distal approach. IMPRESSION: IMAGE(S) OBTAINED DURING PROCEDURE. COMMENT: Quality ID 145: Final reports for procedures using fluoroscopy that document radiation exp osure indices, or exposure time and number of fluorographic images (if radiation exposure indices are not available) Please consult full operative report of the attending physician for description of the procedure. TECHNICAL DOCUMENTATION: JOB ID: [id number] [employer]- All Rights Reserved Reading location - IP/workstation name: [email or web address]
--- NOTE | 2018-04-30 14:24 | RADIOLOGY REPORT (SQ) ---
EXAM DESCRIPTION: NO CHG FLUORO; ELBOW RIGHT AP/LAT COMPLETED DATE/TIME: 04/30/2018 2:08 pm; 04/30/2018 2:09 pm REASON FOR STUDY: ORIF RT ELBOW ASST WITH FLUORO IN OR S82.201A UNSP FRACTURE OF SHAFT OF RIGHT TIB IA, INIT FOR DIANE S52.501A UNSP FRACTURE OF THE LOWER END OF RIGHT RADIUS, INI COMPARISON: None. FLUOROSCOPY TIME: 0.6 minutes 3 images saved to PACS. TECHNIQUE: Intra-operative images acquired during surgical procedure to evaluate progress. NUMBER OF IMAGES: 3 LIMITATIONS: None. FINDINGS: Plate and screws fixation supracondylar fracture medial approach. Cancellous bone screw o verlying lateral epicondyle from distal approach. IMPRESSION: IMAGE(S) OBTAINED DURING PROCEDURE. COMMENT: Quality ID 145: Final reports for procedures using fluoroscopy that document radiation exp osure indices, or exposure time and number of fluorographic images (if radiation exposure indices are not available) Please consult full operative report of the attending physician for description of the procedure. TECHNICAL DOCUMENTATION: JOB ID: [id number] [employer]- All Rights Reserved Reading location - IP/workstation name: [email or web address]
[2018-04-30] MEDS ORDERED: DONEPEZIL HCL 5 MG TABLET PO SCH ×2 (15:00→22:00)
[2018-04-30] MEDS ORDERED: SUCCINYLCHOLINE CHLORIDE INJ 200 MG/10 ML VIAL ONE (15:38)
[2018-04-30] MEDS ORDERED: KETOROLAC TROMETHAMINE 60 MG/2 ML SDV ONE (15:38)
[2018-04-30] MEDS: FERROUS SULFATE 325 MG TABLET PO SCH (16:19)
[2018-04-30] MEDS: DOCUSATE SODIUM 100 MG CAPSULE PO SCH (16:19)
[2018-04-30] MEDS: FUROSEMIDE 20 MG TABLET PO SCH (16:24)
[2018-04-30] MEDS: AMLODIPINE BESYLATE 5 MG TABLET PO SCH (16:24)
[2018-04-30] MEDS ORDERED: ACETAMINOPHEN 325 MG TABLET PO PRN (16:59)
[2018-04-30] MEDS: RINGERS SOLUTION,LACTATED 1,000 ML IV PRN (17:05)
[2018-04-30] MEDS: CEFAZOLIN 2 GM/D5W RTU 2 GM/50 ML RTUPB IV SCH (17:06)
[2018-04-30] MEDS: HYDROCODONE/ACETAMINOPHEN 5-325 MG TABLET PO PRN (22:22)
[2018-05-01] MEDS: RINGERS SOLUTION,LACTATED 1,000 ML IV PRN (00:07)
[2018-05-01] MEDS: CEFAZOLIN 2 GM/D5W RTU 2 GM/50 ML RTUPB IV SCH (02:59)
[2018-05-01] MEDS: HYDROCODONE/ACETAMINOPHEN 5-325 MG TABLET PO PRN (05:06)
[2018-05-01 06:47] LABS: HEMATOCRIT 31.6 % (37.9-51.0); HEMOGLOBIN 10.8 g/dL (13.5-17.0); MEAN CORPUSCULAR HEMOGLOBIN 30.9 pg (27.0-33.4); MEAN CORPUSCULAR HGB CONC 34.3 g/dL (32.0-36.0); MEAN CORPUSCULAR VOLUME 90 fl (80-97); PLATELET COUNT 262 10^3/uL (150-450); RED BLOOD COUNT 3.51 10^6/uL (4.35-5.55); RED CELL DISTRIBUTION WIDTH 13.2 % (11.5-14.0); WHITE BLOOD COUNT 11.4 10^3/uL (4.0-10.5)
--- NOTE | 2018-05-01 06:55 | PDOC TRANSFER SUMMARY ---
General - Admit/Disc Date/PCP Admission Date/Primary Care Provider: 04/30/18 07:[facility] Discharge Date: 05/01/18 - Discharge Diagnosis (2) Right supracondylar humerus fracture Is this a current diagnosis for this admission?: Yes - Additional Information Home Medications: Amlodipine Besylate [Norvasc 5 mg Tablet] 5 mg PO DAILY 04/30/18 Docusate Sodium [Colace] 100 mg PO DAILY 04/30/18 Donepezil HCl [Aricept] 5 mg PO DAILY 04/30/18 Ferrous Sulfate [Feosol 325 mg Tablet] 325 mg PO DAILY 04/30/18 Furosemide [Lasix 20 mg Tablet] 20 mg PO DAILY 04/30/18 Hydrocodone Bit/Acetaminophen [Hydrocodon-Acetaminophen 5-325] 1 tab PO Q8HP PRN 04/30/18 History of Present Illness Admission Date/PCP: 04/30/18 07:31 [facility] History of Present Illness: JENNIFER DUONG is a 87 year old male Hospital Course Hospital Course: Patient is an 87-year-old male presented status post a fall with a right supracondylar humerus fracture and a left medial tibial plateau fracture. Physical Exam Vital Signs: Temp Pulse Resp BP Pulse Ox 36.6 C 72 16 136/77 H 98 04/30/18 23:53 04/30/18 23:53 04/30/18 23:53 04/30/18 23:53 04/30/18 23:53 Intake & Output 04/29/18 04/30/18 05/01/18 06:59 06:59 06:59 Intake Total 4542 Output Total 5 Balance 4537 Weight 81.6 kg General appearance: PRESENT: no acute distress, thin Head exam: PRESENT: normocephalic Respiratory exam: PRESENT: unlabored Cardiovascular exam: PRESENT: RRR Pulses: PRESENT: normal radial pulses, +1 pedal pulses bilateral Vascular exam: PRESENT: normal capillary refill GI/Abdominal exam: PRESENT: soft Rectal exam: PRESENT: deferred Extremities exam: PRESENT: other - Left tibial plateau region with an OpSite dressing medially and some dried drainage which seems to be stopped. Right upper extremity with compression dressing and intact neurovascular examination of the hand. Neurological exam: PRESENT: alert, awake, oriented to person, oriented to place, oriented to time, oriented to situation. ABSENT: motor sensory deficit Psychiatric exam: PRESENT: appropriate affect, normal mood. ABSENT: homicidal ideation, suicidal ideation Skin exam: PRESENT: dry, intact, warm. ABSENT: cyanosis, rash Results Laboratory Results: 05/01/18 06:30 04/30/18 04/30/18 05/01/18 08:25 08:25 06:30 WBC 9.8 11.4 H RBC 4.17 L 3.51 L Hgb 12.7 L 10.8 L Hct 37.6 L 31.6 L MCV 90 90 MCH 30.4 30.9 MCHC 33.7 34.3 RDW 13.1 13.2 Plt Count 304 262 Sodium 137.7 Potassium 4.7 Chloride 102 Carbon Dioxide 28 Anion Gap 8 BUN 34 H Creatinine 1.16 Est GFR ( Amer) > 60 Est GFR (Non-Af Amer) > 60 Glucose 107 Calcium 9.1 Impressions: Elbow X-Ray 04/30/18 00:00 IMPRESSION: IMAGE(S) OBTAINED DURING PROCEDURE. Fluoroscopy 04/30/18 00:00 IMPRESSION: IMAGE(S) OBTAINED DURING PROCEDURE. Tibia/Fibula X-Ray 04/30/18 00:00 IMPRESSION: IMAGE(S) OBTAINED DURING PROCEDURE. Status: Imported from PACS Transfer Plan - Disposition Transfer Plan: Patient to be transferred to [facility] from. Physical therapy can work on touchdown weightbearing restriction on the left lower extremity. This may entail a restriction of bed to chair mobilization. Occupational therapy can work on active range of motion of the right elbow with both flexion extension as well as pronation supination. Qualifiers - * PATIENT BEING DISCHARGED WITH ANY OF THE FOLLOWING DIAGNOSIS: No VTE patient discharged on overlapping Therapy?: Yes Plan Discharge Plan: Patient follow-up with Dr. Falcon [facility] for surgery in 2 weeks for staple removal. Time Spent: Less than 30 Minutes
[2018-05-01 07:12] LABS: ANION GAP 6 (5-19); BLOOD UREA NITROGEN 34 mg/dL (7-20); CALCIUM 8.7 mg/dL (8.4-10.2); CARBON DIOXIDE 30 mmol/L (22-30); CHLORIDE 102 mmol/L (98-107); GLUCOSE 118 mg/dL (75-110); SODIUM 137.5 mmol/L (137-145)
[2018-05-01] MEDS: FUROSEMIDE 20 MG TABLET PO SCH (09:51)
[2018-05-01] MEDS: FERROUS SULFATE 325 MG TABLET PO SCH (09:51)
[2018-05-01] MEDS: AMLODIPINE BESYLATE 5 MG TABLET PO SCH (09:51)
[2018-05-01] MEDS: DOCUSATE SODIUM 100 MG CAPSULE PO SCH (09:51)
[2018-05-01] MEDS ORDERED: ASPIRIN 81 MG TABLET, ENT COATED PO SCH (10:00)
[2018-05-01 13:33] VITALS: BP 102/52
--- NOTE | 2018-05-02 19:28 | Discharge Summary ---
Discharge Summary (SDC) - Discharge Final Diagnosis: left tibia, right humerus fractures Date of Surgery: 04/30/18 Condition: Good Referrals: CHUCKY TORRES MD [ACTIVE STAFF] - 05/15/18 3:15 pm Respiratory Treatments at Home: Deep Breathing/Coughing Discharge Activity: Other - nwb LLE Report the Following to Your Physician Immediately: Shortness of Breath, Fever over 101 Degrees, Drainage-Foul Smelling
== END 2018-05-01 16:14 | disposition home or self-care (01) ==
LOC: 4S 07:31 → INOR 07:31 → UNDOADMIN 07:31 → ASU 1 07:31 → UNDOADMOB 07:31 → EDSTATUS 11:00 → 4S 12:56 → INOR 12:56 → PREINTOOBSV 14:37 → ASU 1 05-01 07:31 → UNDODISOB 05-01 16:14 → UNDODISIN 05-01 16:14
PROVIDERS: ATTEND Orthopaedic Surgery
DX: S42.411A Displaced simple supracondylar fracture without intercondylar fracture of right humerus, initial encounter for closed fracture (principal); S82.142A Displaced bicondylar fracture of left tibia, initial encounter for closed fracture; W19.XXXA Unspecified fall, initial encounter; Y92.481 Parking lot as the place of occurrence of the external cause
CPT/HCPCS: 24545; 36415 ×2; 85027 ×2; 80048 ×2; 73070; 73590; 93005; 93010; 97530; 97163; 27532; C1713 ×7; C1769 ×2; A9270 ×10; J2250; J3490; J0690 ×3; J1100; J1885; J3010; J0330; J2405; J7120 ×2; J2704; J0131; 01392

== ENCOUNTER 2018-05-24 10:50 | Inpatient (IN) | payer MEDICARE, OTHER ==
[2018-05-24] MEDS ORDERED: FENTANYL CITRATE INJ/PF 100 MCG/2 ML AMPUL IV ONE (11:11)
--- NOTE | 2018-05-24 11:40 | RADIOLOGY REPORT (SQ) ---
EXAM DESCRIPTION: HIP LEFT AP/LATERAL COMPLETED DATE/TIME: 05/24/2018 11:27 am REASON FOR STUDY: bed 10-s/p fall +tenderness ?deformity COMPARISON: None. NUMBER OF VIEWS: Two views. TECHNIQUE: AP pelvis and additional frog-leg view of the left hip. LIMITATIONS: None. FINDINGS: MINERALIZATION: Normal. LEFT HIP: There is a comminuted and displaced intertrochanteric fracture of the left hip. RIGHT HIP: No fracture or dislocation. No worrisome bone lesions. PUBIS AND ISCHIUM: No fracture. PELVIS: No fracture. SACRUM: No fracture or dislocation. No worrisome bone lesions. LOWER LUMBAR SPINE: No fracture or dislocation. No worrisome bone lesions. No significant disc disea se. SOFT TISSUES: No findings. OTHER: No other significant finding. IMPRESSION: There is a comminuted and displaced intertrochanteric fracture of the left hip. TECHNICAL DOCUMENTATION: JOB ID: [id number] [employer]- All Rights Reserved Reading location - IP/workstation name: [email or web address]
--- NOTE | 2018-05-24 11:43 | ER Document Report ---
ED Hip Pain/Injury - General Chief Complaint: Hip Pain Stated Complaint: FALL/HIP PAIN Time Seen by Provider: 05/24/18 11:11 Notes: Patient is an 87-year-old male who presents to the emergency department with a chief complaint of left hip pain. He is a resident at [facility] and yesterday he fell and hurt his left hip. The fall was unwitnessed. He is unable to move his left leg, but is able to dorsiflex and plantar flex his foot. They did an x-ray at [facility], but did not send him to the emergency department. Past medical history includes hyperlipidemia, hypertension, cardiac cath with pacemaker, right supracondylar humerus fracture, left medial tibial plateau fracture. He had an ORIF recently. According to the nurse, the patient states that he stood up, and he should not have stood [facility] the [facility]. Patient denies any chest pain, abdominal pain, headache, nausea, vomiting, or diarrhea. TRAVEL OUTSIDE OF THE [place] IN LAST 30 DAYS: No - Related Data Allergies/Adverse Reactions: No Known Allergies Allergy (Verified 05/24/18 11:15) Past Medical History - Social History Smoking Status: Unknown if Ever Smoked Family History: Reviewed & Not Pertinent Patient has suicidal ideation: No Patient has homicidal ideation: No - Past Medical History Cardiac Medical History: Reports: Hx Hypertension Denies: Hx Atrial Fibrillation, Hx Congestive Heart Failure, Hx Coronary Artery Disease, Hx Heart Attack, Hx Hypercholesterolemia, Hx Peripheral Vascular Disease, Hx Pulmonary Embolism, Hx Heart Murmur Pulmonary Medical History: Reports: Hx Asthma - Asthamatic bronchitis , Hx Bronchitis, Hx Pneumonia Denies: Hx COPD, Hx Respiratory Failure, Hx Sleep Apnea, Hx Tuberculosis Neurological Medical History: Denies: Hx Cerebrovascular Accident, Hx Seizures Renal/ Medical History: Denies: Hx Peritoneal Dialysis Malignancy Medical History: Denies Hx Lung Cancer Musculoskeletal Medical History: Denies Hx Arthritis, Denies Hx Fibromyalgia, Denies Hx Multiple Sclerosis, Denies Hx Muscular Dystrophy Psychiatric Medical History: Reports: Hx Dementia Traumatic Medical History: Reports: Hx Fractures - Curent L tibia and R elbow fx Past Surgical History: Reports: Hx Cardiac Catheterization - pacemaker, Hx Cardiac Surgery - pacemaker, Hx Orthopedic Surgery, Hx Pacemaker - 2017. Denies: Hx Appendectomy, Hx Bowel Surgery, Hx Cholecystectomy, Hx Coronary Artery Bypass Graft, Hx Gastric Bypass Surgery, Hx Herniorrhaphy, Hx Tonsillectomy Review of Systems - Review of Systems Notes: REVIEW OF SYSTEMS: CONSTITUTIONAL : Denies recent illness. Denies recent unintentional weight loss. Denies fever, chills, or sweats. EENT: Denies eye, ear, throat, or mouth pain, discharge, or symptoms. Denies nasal or sinus congestion. CARDIOVASCULAR: Denies chest pain. RESPIRATORY: Denies shortness of breath, cough, congestion, difficulty breathing, or wheezing. GASTROINTESTINAL: Denies nausea, vomiting, and diarrhea. Denies abdominal pain. Denies constipation. GENITOURINARY: Denies difficulty urinating, burning, blood in urine, urgency or frequency. MUSCULOSKELETAL: See HPI SKIN: Denies rash, itchiness, or lesions HEMATOLOGIC : Denies easy bruising or bleeding. LYMPHATIC: Denies swollen, painful, enlarged glands. NEUROLOGICAL: Denies no numbness or tingling denies weakness. Denies headache. Denies altered mental status. Denies alteration in speech. PSYCHIATRIC: Denies stress, anxiety, alteration in sleep patterns, or depression. All other systems reviewed and negative. Physical Exam - Vital signs Vitals: Temp Pulse Resp BP Pulse Ox 99.0 F 99 14 115/61 95 05/24/18 11:00 05/24/18 11:00 05/24/18 11:00 05/24/18 11:00 05/24/18 11:00 - Notes Notes: PHYSICAL EXAMINATION: GENERAL: Appears well, healthy, well-nourished, no acute distress. HEAD: Normocephalic, atraumatic. EYES: PERRL, conjunctiva normal, all extraocular movements intact, sclera nonicteric ENT: Moist mucous membranes. NECK: Supple, no noticeable swelling, redness, rash. Normal range of motion. LUNGS: Equal breath sounds bilaterally and clear to auscultation. No wheezes rales or rhonchi. CARDIOVASCULAR: S1-S2, regular rate, regular rhythm. Radial pulses 2+, normal. ABDOMEN: Normoactive bowel sounds. Soft, nontender, no guarding, no rebound tenderness, and no masses palpated. EXTREMITIES: Decreased range of motion to left lower extremity. Leg shortening to left extremity with internal rotation. Obvious deformity to right upper arm, where he had his ORIF. NEUROLOGICAL: 2 out of 5 strength in the left lower extremity. 5 out of 5 strength in other extremities. PSYCH: Normal mood, normal affect. SKIN: Warm, dry. No rash, lesions, ulcerations noted. Normal skin turgor. Course - Re-evaluation Re-evalutation: 05/24/18 12:35 Patient has a comminuted and displaced intertrochanteric fracture of the left hip. Patient had since the patient had an unwitnessed fall, he will be sent for CT of the head and neck to rule out any intracranial or cervical etiologies fractures. 05/24/18 13:[address] Falcon and he would like me to reorder a right humerus x-ray and left to the x-ray to make sure the ORIF's are intact. I will call the hospitalist service for medical management. 05/24/18 15:33 Patient's hematology is unremarkable other than being anemic at a hemoglobin of 10.7 and hematocrit of 31.2, which is most likely chronic. His chemistries are unremarkable. I have a very low suspicion for an myocardial infarction, as the patient is not complaining of any chest pain. CT of the head and C-spine are n egative for any acute findings. I spoke with Dr. Clay, the hospitalist. The patient will be admitted to the hospitalist service. - Vital Signs Vital signs: Temp Pulse Resp BP Pulse Ox 98.1 F 92 16 131/75 H 100 05/24/18 18:55 05/24/18 18:55 05/24/18 18:55 05/24/18 18:55 05/24/18 18:55 - Laboratory Result Diagrams: 05/24/18 14:27 05/24/18 14:27 Laboratory results interpreted by me: 05/24/18 05/24/18 14:27 14:27 RBC 3.52 L Hgb 10.7 L Hct 31.2 L Seg Neutrophils % 81.4 H Lymphocytes % 11.3 L Sodium 136.1 L BUN 26 H Est GFR (Non-Af Amer) 56 L Glucose 119 H ALT 20 L Alkaline Phosphatase 146 H - EKG Interpretation by Me Additional EKG results interpreted by me: 05/24/18 13:30 Sinus rhythm. Rate 97. NV 196; QRS 88; QT 364; QTC 463. No ST elevations or depressions. Discharge - Discharge Clinical Impression: Intertrochanteric fracture of left hip Qualifiers: Encounter type: initial encounter Fracture type: closed Fracture alignment: displaced Qualified Code(s): S72.142A - Displaced intertrochanteric fracture of left femur, initial encounter for closed fracture Condition: Fair Disposition: ADMITTED INPATIENT Admitting Provider: Danna (Hospitalist) Unit Admitted: Telemetry
--- NOTE | 2018-05-24 12:59 | RADIOLOGY REPORT (SQ) ---
EXAM DESCRIPTION: CT CERVICAL SPINE WITHOUT COMPLETED DATE/TIME: 05/24/2018 12:48 pm REASON FOR STUDY: fall COMPARISON: None. TECHNIQUE: Axial images acquired through the cervical spine without intravenous contrast. Images re viewed with lung, soft tissue and bone windows. Reconstructed coronal and sagittal MPR images review ed. Images stored on PACS. All CT scanners at this facility use dose modulation, iterative reconstruction, and/or weight based d osing when appropriate to reduce radiation dose to as low as reasonably achievable (ALARA). [facility]: Dose Right [facility]: CareDose [facility]: Dose Right [facility]: Teradose 4D [facility]: Smart Technologies RADIATION DOSE: CT Rad equipment meets quality standard of care and radiation dose reduction techniq ues were employed. CTDIvol: 10.3 mGy. DLP: 418 mGy-cm. mGy. LIMITATIONS: None. FINDINGS: ALIGNMENT: Anatomic. MINERALIZATION: Normal. VERTEBRAL BODIES: No fractures or dislocation. DISCS: Disc spaces are narrowed from C3 to C7. C7 and T1 appear to be fused. Marginal osteophytes a re present at multiple levels. FACETS, LATERAL MASSES, POSTERIOR ELEMENTS: Hypertrophic facet changes seen in the mid to upper cervi melany spine, right more than left. HARDWARE: None in the spine. VISUALIZED RIBS: No fractures. LUNG APICES AND SOFT TISSUES: No significant or acute findings. OTHER: No other significant finding. IMPRESSION: Multilevel degenerative disc disease and spondylosis. Facet arthropathy. C7 and T1 apolinar ear to be fused. TECHNICAL DOCUMENTATION: JOB ID: [id number] Quality ID # [id number]: Final reports with documentation of one or more dose reduction techniques (e.g., Au tomated exposure control, adjustment of the mA and/or kV according to patient size, use of iterative reconstruction technique) 2010 [employer]- All Rights Reserved Reading location - IP/workstation name: [email or web address]
--- NOTE | 2018-05-24 13:09 | RADIOLOGY REPORT (SQ) ---
EXAM DESCRIPTION: CT HEAD WITHOUT COMPLETED DATE/TIME: 05/24/2018 12:48 pm REASON FOR STUDY: fall COMPARISON: 03/10/2016 TECHNIQUE: Axial images acquired through the brain without intravenous contrast. Images reviewed wi th bone, brain and subdural windows. Additional sagittal and coronal reconstructions were generated. Images stored on PACS. All CT scanners at this facility use dose modulation, iterative reconstruction, and/or weight based d osing when appropriate to reduce radiation dose to as low as reasonably achievable (ALARA). [facility]: Dose Right [facility]: CareDose [facility]: Dose Right [facility]: Teradose 4D [facility]: Smart [employer] RADIATION DOSE: CT Rad equipment meets quality standard of care and radiation dose reduction techniq ues were employed. CTDIvol: 53.2 mGy. DLP: 991 mGy-cm. mGy. LIMITATIONS: None. FINDINGS: VENTRICLES: Normal size and contour. CEREBRUM: No masses. No hemorrhage. No midline shift. No evidence for acute infarction. Few scatte red areas of low density in the white matter most likely chronic small vessel ischemic changes. CEREBELLUM: No masses. No hemorrhage. No alteration of density. No evidence for acute infarction. EXTRAAXIAL SPACES: No fluid collections. No masses. ORBITS AND GLOBE: No intra- or extraconal masses. Normal contour of globe without masses. CALVARIUM: No fracture. PARANASAL SINUSES: No fluid or mucosal thickening. SOFT TISSUES: No mass or hematoma. OTHER: No other significant finding. IMPRESSION: No acute intracranial pathology. EVIDENCE OF ACUTE STROKE: NO. COMMENT: Quality ID # [id number]: Final reports with documentation of one or more dose reduction techniques (e.g., Automated exposure control, adjustment of the mA and/or kV according to patient size, use of iterative reconstruction technique) TECHNICAL DOCUMENTATION: JOB ID: [id number] [employer]- All Rights Reserved Reading location - IP/workstation name: [email or web address]
--- NOTE | 2018-05-24 14:38 | RADIOLOGY REPORT (SQ) ---
EXAM DESCRIPTION: TIBIA FIBULA LEFT COMPLETED DATE/TIME: 05/24/2018 2:11 pm REASON FOR STUDY: fall COMPARISON: 04/30/2018 NUMBER OF VIEWS: Two views. TECHNIQUE: Two radiographic images acquired of the left tibia and fibula to include the knee and ank le in at least one projection. LIMITATIONS: None. FINDINGS: MINERALIZATION: Normal. BONES: The tibial fracture lines are more prominent, part of the normal healing process from the [facility] ture 04/14/2018. Alignment remains satisfactory. No new fracture is seen. SOFT TISSUES: No obvious swelling or foreign body. OTHER: There are 2 cannulated screws in the proximal tibia. IMPRESSION: NEGATIVE STUDY OF THE LEFT TIBIA AND FIBULA. NO RADIOGRAPHIC EVIDENCE OF ACUTE INJURY. TECHNICAL DOCUMENTATION: JOB ID: [id number] [employer]- All Rights Reserved Reading location - IP/workstation name: [email or web address]
[2018-05-24 14:40] LABS: ABSOLUTE EOSINOPHILS # (AUTO) 0.1 10^3/uL (0.0-0.6); ABSOLUTE MONOCYTES (AUTO) 0.5 10^3/uL (0.1-1.4); ABSOLUTE NEUT (AUTO) 7.6 10^3/uL (1.7-8.2); BASOPHILS % (AUTO) 0.4 % (0-2); EOSINOPHILS % (AUTO) 1.3 % (0-6); HEMATOCRIT 31.2 % (37.9-51.0); HEMOGLOBIN 10.7 g/dL (13.5-17.0); LYMPHOCYTES % (AUTO) 11.3 % (13-45); MEAN CORPUSCULAR HEMOGLOBIN 30.4 pg (27.0-33.4); MEAN CORPUSCULAR HGB CONC 34.3 g/dL (32.0-36.0); MEAN CORPUSCULAR VOLUME 89 fl (80-97); MONOCYTES % (AUTO) 5.6 % (3-13); PLATELET COUNT 173 10^3/uL (150-450); RED BLOOD COUNT 3.52 10^6/uL (4.35-5.55); RED CELL DISTRIBUTION WIDTH 13.7 % (11.5-14.0); SEGMENTED NEUTROPHILS % (AUTO) 81.4 % (42-78); TOTAL CELLS COUNTED % (AUTO) 100 %; WHITE BLOOD COUNT 9.3 10^3/uL (4.0-10.5)
--- NOTE | 2018-05-24 14:40 | RADIOLOGY REPORT (SQ) ---
EXAM DESCRIPTION: HUMERUS RIGHT COMPLETED DATE/TIME: 05/24/2018 2:11 pm REASON FOR STUDY: fall COMPARISON: None. NUMBER OF VIEWS: Two views. TECHNIQUE: Two radiographic images were acquired of the right humerus to include elbow and shoulder in at least one projection. LIMITATIONS: None. FINDINGS: MINERALIZATION: Normal. BONES: No acute fracture or dislocation. Extensive hardware from previous ORIF. SOFT TISSUES: No obvious swelling or foreign body. OTHER: No other significant finding. IMPRESSION: NEGATIVE STUDY OF THE RIGHT HUMERUS. NO RADIOGRAPHIC EVIDENCE OF ACUTE INJURY. TECHNICAL DOCUMENTATION: JOB ID: [id number] [employer]- All Rights Reserved Reading location - IP/workstation name: [email or web address]
[2018-05-24 14:58] LABS: ALANINE AMINOTRANSFERASE 20 U/L (21-72); ALBUMIN 3.6 g/dL (3.5-5.0); ALKALINE PHOSPHATASE 146 U/L (38-126); ANION GAP 7 (5-19); ASPARTATE AMINO TRANSFERASE 20 U/L (17-59); BILIRUBIN,DIRECT 0.2 mg/dL (0.0-0.4); BILIRUBIN,TOTAL 0.8 mg/dL (0.2-1.3); BLOOD UREA NITROGEN 26 mg/dL (7-20); CALCIUM 8.8 mg/dL (8.4-10.2); CARBON DIOXIDE 27 mmol/L (22-30); CHLORIDE 102 mmol/L (98-107); GLUCOSE 119 mg/dL (75-110); POTASSIUM 4.4 mmol/L (3.6-5.0); SODIUM 136.1 mmol/L (137-145)
--- NOTE | 2018-05-24 16:19 | RADIOLOGY REPORT (SQ) ---
EXAM DESCRIPTION: CHEST SINGLE VIEW COMPLETED DATE/TIME: 05/24/2018 4:11 pm REASON FOR STUDY: preop COMPARISON: 04/17/2018 EXAM PARAMETERS: NUMBER OF VIEWS: One view. TECHNIQUE: Single frontal radiographic view of the chest acquired. RADIATION DOSE: NA LIMITATIONS: None. FINDINGS: LUNGS AND PLEURA: COPD. Stable right apical pleural thickening. No evidence of pulmonary edema or pneumonia. MEDIASTINUM AND HILAR STRUCTURES: No masses. Contour normal. HEART AND VASCULAR STRUCTURES: Stable heart size. Normal vasculature. BONES: No acute findings. HARDWARE: Unchanged position of left pacemaker. OTHER: No other significant finding. IMPRESSION: NO ACUTE RADIOGRAPHIC FINDING IN THE CHEST. TECHNICAL DOCUMENTATION: JOB ID: [id number] [employer]- All Rights Reserved Reading location - IP/workstation name: [email or web address]
--- NOTE | 2018-05-24 16:39 | PDOC H&P ---
History of Present Illness Admission Date/PCP: 05/24/18 16:02 DAMIR SIFUENTES MD History of Present Illness: JENNIFER DUONG is a 87 year old male with a PMH of HTN, dementia, hyperlipidemia, and recent ORIF for a knee fracture who was sent to the ER from [place]. Patient reportedly fell from the bed last night in [place]. A pelvic xray was done which showed left hip fracture and he was sent to the ER. Upon encounter, he is oriented to person which is apparently his baseline. Called patient's DPOA, Tirso Aguilar. He says patient is a DNR (no chest compressions or defibrillation) but is okay for short term/temporary ventilation of needed for surgery. Past Medical History Cardiac Medical History: Reports: Hypertension Denies: Atrial Fibrillation, Congestive Heart Failure, Coronary Artery Disease, Myocardial Infarction, Hyperlipidema, Peripheral Vascular Disease, Pulmonary Embolism, Heart Murmur Pulmonary Medical History: Reports: Asthma - Asthamatic bronchitis , Bronchitis, Pneumonia Denies: Chronic Obstructive Pulmonary Disease (COPD), Respiratory Failure, Sleep Apnea, Tuberculosis Neurological Medical History: Denies: Seizures Malignancy Medical History: Denies: Lung Cancer Musculoskeltal Medical History: Denies: Arthritis, Fibromyalgia Psychiatric Medical History: Reports: Dementia Past Surgical History Past Surgical History: Reports: Cardiac Catheterization - pacemaker, Orthopedic Surgery, Pacemaker - 2017 Denies: Appendectomy, Cholecystectomy, Coronary Artery Bypass Graft, Gastric Bypass Surgery, Herniorrhaphy, Tonsillectomy Social History Smoking Status: Unknown if Ever Smoked Hx Recreational Drug Use: No Hx Prescription Drug Abuse: No Family History Family History: Reviewed & Not Pertinent Parental Family History Reviewed: Yes - no premature CAD Children Family History Reviewed: No Sibling(s) Family History Reviewed.: No Medication/Allergy Home Medications: Amlodipine Besylate [Norvasc 5 mg Tablet] 5 mg PO DAILY 05/24/18 Divalproex Sodium [Depakote] 125 mg PO BID 05/24/18 Docusate Sodium [Colace 100 mg Capsule] 100 mg PO DAILY 05/24/18 Furosemide [Lasix 20 mg Tablet] 20 mg PO DAILYP PRN 05/24/18 Allergies/Adverse Reactions: No Known Allergies Allergy (Verified 05/24/18 11:15) Physical Exam Vital Signs: Temp Pulse Resp BP Pulse Ox 99.0 F 99 14 119/76 96 05/24/18 11:00 05/24/18 11:00 05/24/18 15:01 05/24/18 15:01 05/24/18 15:01 Intake & Output 05/23/18 05/24/18 05/25/18 06:59 06:59 06:59 Weight 140 lb 6.951 oz Results Laboratory Results: 05/24/18 14:27 05/24/18 14:27 05/24/18 05/24/18 14:27 14:27 WBC 9.3 RBC 3.52 L Hgb 10.7 L Hct 31.2 L MCV 89 MCH 30.4 MCHC 34.3 RDW 13.7 Plt Count 173 Seg Neutrophils % 81.4 H Lymphocytes % 11.3 L Monocytes % 5.6 Eosinophils % 1.3 Basophils % 0.4 Absolute Neutrophils 7.6 Absolute Lymphocytes 1.0 Absolute Monocytes 0.5 Absolute Eosinophils 0.1 Absolute Basophils 0.0 Sodium 136.1 L Potassium 4.4 Chloride 102 Carbon Dioxide 27 Anion Gap 7 BUN 26 H Creatinine 1.23 Est GFR ( Amer) > 60 Est GFR (Non-Af Amer) 56 L Glucose 119 H Calcium 8.8 Total Bilirubin 0.8 AST 20 ALT 20 L Alkaline Phosphatase 146 H Total Protein 7.0 Albumin 3.6 Impressions: Hip X-Ray 05/24/18 00:00 IMPRESSION: There is a comminuted and displaced intertrochanteric fracture of the left hip. Cervical Spine CT 05/24/18 11:41 IMPRESSION: Multilevel degenerative disc disease and spondylosis. Facet arthropathy. C7 and T1 appear to be fused. Head CT 05/24/18 11:41 IMPRESSION: No acute intracranial pathology. EVIDENCE OF ACUTE STROKE: NO. Humerus X-Ray 05/24/18 13:20 IMPRESSION: NEGATIVE STUDY OF THE RIGHT HUMERUS. NO RADIOGRAPHIC EVIDENCE OF ACUTE INJURY. Tibia/Fibula X-Ray 05/24/18 13:20 IMPRESSION: NEGATIVE STUDY OF THE LEFT TIBIA AND FIBULA. NO RADIOGRAPHIC EVIDENCE OF ACUTE INJURY. Assessment and Plan - Diagnosis (1) Intertrochanteric fracture of left hip Qualifiers: Encounter type: initial encounter Fracture type: closed Fracture alignment: displaced Qualified Code(s): S72.142A - Displaced intertrochanteric fracture of left femur, initial encounter for closed fracture Is this a current diagnosis for this admission?: Yes Plan: Orthopedics made aware of admission from the ER. (2) HTN (hypertension) Is this a current diagnosis for this admission?: Yes (3) Dementia Is this a current diagnosis for this admission?: Yes - Time Time Spent with patient: 15-24 minutes
--- NOTE | 2018-05-24 16:40 | ADVANCED CARE ---
- Diagnosis (1) Intertrochanteric fracture of left hip Diagnosis Current: Yes (2) HTN (hypertension) Diagnosis Current: Yes (3) Dementia Diagnosis Current: Yes Resuscitation Status: Do Not Resuscitate Discussion: Called patient's DPOA, Tirso Aguilar. He says patient is a DNR (no chest compressions or defibrillation) but is okay for short term/temporary ventilation if needed for surgery.
[2018-05-24] MEDS ORDERED: FUROSEMIDE 20 MG TABLET PO PRN (16:41)
--- NOTE | 2018-05-24 16:45 | RADIOLOGY REPORT (SQ) ---
EXAM DESCRIPTION: L SPINE 2 VIEWS COMPLETED DATE/TIME: 05/24/2018 4:28 pm REASON FOR STUDY: fall, low back pain COMPARISON: None. NUMBER OF VIEWS: Two views. TECHNIQUE: AP and lateral radiographic images acquired of the thoracic spine. LIMITATIONS: None. FINDINGS: MINERALIZATION: Osteopenia. ALIGNMENT: Mild convex left scoliosis. VERTEBRAE: Maintained height. DISCS: Multilevel disc space narrowing with osteophytes. HARDWARE: None in the spine. MEDIASTINUM AND SOFT TISSUES: Normal heart size and aortic contour. No soft tissue abnormality. VISUALIZED LUNG JOHNSON: Clear. OTHER: No other significant finding. IMPRESSION: SPONDYLOSIS WITHOUT BONE LESION OR FRACTURE. TECHNICAL DOCUMENTATION: JOB ID: [id number] [employer]- All Rights Reserved Reading location - IP/workstation name: [email or web address]
[2018-05-24 16:58] LABS: CREATINE KINASE MB 0.48 ng/mL (<4.55); TROPONIN I 0.029 ng/mL
--- NOTE | 2018-05-24 18:00 | EKG REPORT ---
SEVERITY:- BORDERLINE ECG - SINUS RHYTHM BORDERLINE R WAVE PROGRESSION, ANTERIOR LEADS : Confirmed by: Misty Espinosa 24-May-2018 17:59:27
[2018-05-24] MEDS: RINGERS SOLUTION,LACTATED 1,000 ML IV PRN (23:48)
[2018-05-25] MEDS: RINGERS SOLUTION,LACTATED 1,000 ML IV PRN ×2 (05:48→21:12)
--- NOTE | 2018-05-25 06:53 | PDOC CONSULTATION ---
Consultation Consult Date: 05/25/18 Consult reason:: Left hip fracture History of Present Illness Admission Date/PCP: 05/24/18 16:02 DAMIR SIFUENTES MD History of Present Illness: JENNIFER DUONG is a 87 year old male The patient is an 87-year-old white male known to me from an open reduction internal fixation of a tibial plateau toe fracture distal humerus fracture approximately 3 weeks ago. Apparently the patient fell out of bed at [facility] and is now presented with a left intertrochanteric femur fracture. Past Medical History Cardiac Medical History: Reports: Hypertension Denies: Atrial Fibrillation, Congestive Heart Failure, Coronary Artery Disease, Myocardial Infarction, Hyperlipidema, Peripheral Vascular Disease, Pulmonary Embolism, Heart Murmur Pulmonary Medical History: Reports: Asthma - Asthamatic bronchitis , Bronchitis, Pneumonia Denies: Chronic Obstructive Pulmonary Disease (COPD), Respiratory Failure, Sleep Apnea, Tuberculosis Neurological Medical History: Denies: Seizures Malignancy Medical History: Denies: Lung Cancer Musculoskeltal Medical History: Denies: Arthritis, Fibromyalgia Psychiatric Medical History: Reports: Dementia Past Surgical History Past Surgical History: Reports: Cardiac Catheterization - pacemaker, Orthopedic Surgery - Recent ORIF right elbow left tibia, Pacemaker - 2016 Denies: Appendectomy, Cholecystectomy, Coronary Artery Bypass Graft, Gastric Bypass Surgery, Herniorrhaphy, Tonsillectomy Social History Information Source: Patient, DrAriadne Pereira, [facility] Records Lives with: Custodial Smoking Status: Unknown if Ever Smoked Frequency of Alcohol Use: None Hx Recreational Drug Use: No Drugs: None Hx Prescription Drug Abuse: No - Advance Directive Resuscitation Status: Do Not Resuscitate Family History Family History: Reviewed & Not Pertinent Parental Family History Reviewed: No Children Family History Reviewed: No Sibling(s) Family History Reviewed.: No Medication/Allergy Home Medications: Amlodipine Besylate [Norvasc 5 mg Tablet] 5 mg PO DAILY 05/24/18 Divalproex Sodium [Depakote] 125 mg PO BID 05/24/18 Docusate Sodium [Colace 100 mg Capsule] 100 mg PO DAILY 05/24/18 Furosemide [Lasix 20 mg Tablet] 20 mg PO DAILYP PRN 05/24/18 Allergies/Adverse Reactions: No Known Allergies Allergy (Verified 05/24/18 11:15) Review of Systems ROS unobtainable: Due to mental status Physical Exam Vital Signs: Temp Pulse Resp BP Pulse Ox 36.8 C 88 17 124/74 99 05/24/18 23:25 05/25/18 02:00 05/24/18 23:25 05/24/18 23:25 05/24/18 23:25 Intake & Output 05/23/18 05/24/18 05/25/18 06:59 06:59 06:59 Intake Total 900 Balance 900 Weight 60.4 kg Physical Exam: Patient is a thin elderly white male lying in a hospital bed. Patient is soundly asleep and unable to be aroused. General appearance: PRESENT: no acute distress Head exam: PRESENT: normocephalic Respiratory exam: PRESENT: unlabored Cardiovascular exam: PRESENT: RRR Pulses: PRESENT: +1 pedal pulses bilateral Vascular exam: PRESENT: normal capillary refill GI/Abdominal exam: PRESENT: soft Rectal exam: PRESENT: deferred Extremities exam: PRESENT: other - Left lower extremity shortened and actually rotated Skin exam: PRESENT: dry, intact, warm. ABSENT: cyanosis, rash Results Laboratory Results: 05/24/18 14:27 05/24/18 14:27 05/24/18 05/24/18 14:27 14:27 WBC 9.3 RBC 3.52 L Hgb 10.7 L Hct 31.2 L MCV 89 MCH 30.4 MCHC 34.3 RDW 13.7 Plt Count 173 Seg Neutrophils % 81.4 H Lymphocytes % 11.3 L Monocytes % 5.6 Eosinophils % 1.3 Basophils % 0.4 Absolute Neutrophils 7.6 Absolute Lymphocytes 1.0 Absolute Monocytes 0.5 Absolute Eosinophils 0.1 Absolute Basophils 0.0 Sodium 136.1 L Potassium 4.4 Chloride 102 Carbon Dioxide 27 Anion Gap 7 BUN 26 H Creatinine 1.23 Est GFR ( Amer) > 60 Est GFR (Non-Af Amer) 56 L Glucose 119 H Calcium 8.8 Total Bilirubin 0.8 AST 20 ALT 20 L Alkaline Phosphatase 146 H Total Protein 7.0 Albumin 3.6 05/24/18 05/24/18 14:27 14:27 Creatine Kinase 92 CK-MB (CK-2) 0.48 Troponin I 0.029 Impressions: Hip X-Ray 05/24/18 00:00 IMPRESSION: There is a comminuted and displaced intertrochanteric fracture of the left hip. Lumbar Spine X-Ray 05/24/18 00:00 IMPRESSION: SPONDYLOSIS WITHOUT BONE LESION OR FRACTURE. Cervical Spine CT 05/24/18 11:41 IMPRESSION: Multilevel degenerative disc disease and spondylosis. Facet arthropathy. C7 and T1 appear to be fused. Head CT 05/24/18 11:41 IMPRESSION: No acute intracranial pathology. EVIDENCE OF ACUTE STROKE: NO. Humerus X-Ray 05/24/18 13:20 IMPRESSION: NEGATIVE STUDY OF THE RIGHT HUMERUS. NO RADIOGRAPHIC EVIDENCE OF ACUTE INJURY. Tibia/Fibula X-Ray 05/24/18 13:20 IMPRESSION: NEGATIVE STUDY OF THE LEFT TIBIA AND FIBULA. NO RADIOGRAPHIC EVIDENCE OF ACUTE INJURY. Chest X-Ray 05/24/18 16:00 IMPRESSION: NO ACUTE RADIOGRAPHIC FINDING IN THE CHEST. Status: Imported from PACS Assessment & Plan - Diagnosis (1) Intertrochanteric fracture of left hip Qualifiers: Encounter type: initial encounter Fracture type: closed Fracture alignment: displaced Qualified Code(s): S72.142A - Displaced intertrochanteric fracture of left femur, initial encounter for closed fracture Is this a current diagnosis for this admission?: Yes Plan: 87-year-old white male now with a left intratrochanteric femur fracture. I think to preserve any ambulation as well as for nursing care the patient would best served with an open reduction internal fixation of the fracture. This is a procedure that takes approximately 30 minutes can be done under regional anesthetic and is associate with 100 cc blood loss. The patient can be weightbearing as tolerated postop. - Time Time Spent: 50 to 70 Minutes Anticipated discharge: SNF Within: Other
[2018-05-25] MEDS ORDERED: CEFAZOLIN SODIUM 2 GM in DEXTROSE 5%-WATER 100 ML IV PRN (07:52)
[2018-05-25] MEDS ORDERED: TRANEXAMIC ACID INJ/PF 1,000 MG/10 ML SDV IV PRN (07:52)
[2018-05-25] MEDS: AMLODIPINE BESYLATE 5 MG TABLET PO SCH (09:28)
[2018-05-25] MEDS: DOCUSATE SODIUM 100 MG CAPSULE PO SCH (09:28)
[2018-05-25] MEDS ORDERED: MIDAZOLAM 2 MG/2 ML INJ ONE (11:37)
[2018-05-25] MEDS ORDERED: FENTANYL CITRATE INJ/PF 100 MCG/2 ML AMPUL ONE (11:37)
[2018-05-25] MEDS ORDERED: PROPOFOL INJ 200 MG/20 ML VIAL IV ONE (11:37)
[2018-05-25] MEDS ORDERED: TRANEXAMIC ACID INJ/PF 1,000 MG/10 ML SDV IV ONE (12:14)
[2018-05-25] MEDS ORDERED: CEFAZOLIN INJ 1 GM VIAL ONE (12:14)
[2018-05-25] MEDS ORDERED: MEPERIDINE HCL/PF INJ 25 MG/1 ML DISP.SYRIN IV PRN (12:26)
[2018-05-25] MEDS ORDERED: PROMETHAZINE HCL INJ 25 MG/1 ML VIAL IV PRN ×2 (12:26)
[2018-05-25] MEDS ORDERED: FENTANYL CITRATE INJ/PF 100 MCG/2 ML AMPUL IV PRN ×3 (12:26)
[2018-05-25] MEDS ORDERED: DIPHENHYDRAMINE HCL 50 MG/ML VIAL IV PRN (12:26)
--- NOTE | 2018-05-25 12:37 | Operative Report ---
Operative Report DATE OF SURGERY: 05/25/18 PREOPERATIVE DIAGNOSIS: Left intertrochanteric femur fracture OPERATION: Open reduction internal fixation left intratrochanteric femur fracture SURGEON: CHUCKY TORRES ANESTHESIA: Spinal ESTIMATED BLOOD LOSS: 100 PROCEDURE: With the patient supine on fracture table left lower extremity is manipulated to effect a near anatomic reduction of the fracture. It subsequently prepped and draped in sterile fashion. Under fluoroscopic guidance a pin is placed percutaneously down through the greater trochanter into the femoral proximal metadiaphysis. A combined reamer was used to fashion a cortical opening. Ball- tipped guide nader measured the length of the femur to be 340 mm. Subsequently a [place] gamma 3, 11 mm x 130 degree x 340 mm nail was advanced over the ball- tipped guide nader for a proximal interlock to be central cephalad caudad as well as anterior posterior. A 10 mm x 95 mm proximal interlock was placed. Under fluoroscopic guidance freehand a distal 42.5 mm interlock was placed. The wounds irrigated with bulb lavage closed using interrupted Vicryl followed by leif. A sterile compressive dressing was applied and the patient's return to PACU in satisfactory region.
--- NOTE | 2018-05-25 12:52 | PDOC PROGRESS REPORT ---
Subjective Progress Note for:: 05/25/18 Subjective:: This is an 87 year old male with a PMH of HTN, dementia, hyperlipidemia, and recent ORIF for a knee fracture and a tibial fracture as well who was sent to the ER from [place]. Patient reportedly fell from the bed on 05/23 in [place]. A pelvic xray was done which showed left hip fracture and he was sent to the ER. No acute event overnight. Patient was comfortable upon encounter this morning. He is scheduled for ORIF of the left hip today. Reason For Visit: HIP FRACTURE,CAD Physical Exam Vital Signs: Temp Pulse Resp BP Pulse Ox 99.2 F 81 16 131/75 H 97 05/25/18 10:02 05/25/18 10:02 05/25/18 10:02 05/25/18 10:02 05/25/18 10:02 Intake & Output 05/24/18 05/25/18 05/26/18 06:59 06:59 06:59 Intake Total 900 Balance 900 Weight 133 lb 2.547 oz General appearance: PRESENT: no acute distress, well-developed, well-nourished Head exam: PRESENT: atraumatic, normocephalic Eye exam: PRESENT: conjunctiva pink, EOMI, PERRLA. ABSENT: scleral icterus Ear exam: PRESENT: normal external ear exam Mouth exam: PRESENT: moist, tongue midline Neck exam: ABSENT: carotid bruit, JVD, lymphadenopathy, thyromegaly Respiratory exam: PRESENT: clear to auscultation philip. ABSENT: rales, rhonchi, wheezes Cardiovascular exam: PRESENT: RRR. ABSENT: diastolic murmur, rubs, systolic murmur Pulses: PRESENT: normal dorsalis pedis pul GI/Abdominal exam: PRESENT: normal bowel sounds, soft. ABSENT: distended, guarding, mass, organolmegaly, rebound, tenderness Rectal exam: PRESENT: deferred Neurological exam: PRESENT: alert, awake, CN II-XII grossly intact. ABSENT: motor sensory deficit Results Laboratory Results: 05/24/18 14:27 05/24/18 14:27 05/24/18 05/24/18 14:27 14:27 WBC 9.3 RBC 3.52 L Hgb 10.7 L Hct 31.2 L MCV 89 MCH 30.4 MCHC 34.3 RDW 13.7 Plt Count 173 Seg Neutrophils % 81.4 H Lymphocytes % 11.3 L Monocytes % 5.6 Eosinophils % 1.3 Basophils % 0.4 Absolute Neutrophils 7.6 Absolute Lymphocytes 1.0 Absolute Monocytes 0.5 Absolute Eosinophils 0.1 Absolute Basophils 0.0 Sodium 136.1 L Potassium 4.4 Chloride 102 Carbon Dioxide 27 Anion Gap 7 BUN 26 H Creatinine 1.23 Est GFR ( Amer) > 60 Est GFR (Non-Af Amer) 56 L Glucose 119 H Calcium 8.8 Total Bilirubin 0.8 AST 20 ALT 20 L Alkaline Phosphatase 146 H Total Protein 7.0 Albumin 3.6 05/24/18 05/24/18 14:27 14:27 Creatine Kinase 92 CK-MB (CK-2) 0.48 Troponin I 0.029 Impressions: Hip X-Ray 05/24/18 00:00 IMPRESSION: There is a comminuted and displaced intertrochanteric fracture of the left hip. Lumbar Spine X-Ray 05/24/18 00:00 IMPRESSION: SPONDYLOSIS WITHOUT BONE LESION OR FRACTURE. Cervical Spine CT 05/24/18 11:41 IMPRESSION: Multilevel degenerative disc disease and spondylosis. Facet arthropathy. C7 and T1 appear to be fused. Head CT 05/24/18 11:41 IMPRESSION: No acute intracranial pathology. EVIDENCE OF ACUTE STROKE: NO. Humerus X-Ray 05/24/18 13:20 IMPRESSION: NEGATIVE STUDY OF THE RIGHT HUMERUS. NO RADIOGRAPHIC EVIDENCE OF ACUTE INJURY. Tibia/Fibula X-Ray 05/24/18 13:20 IMPRESSION: NEGATIVE STUDY OF THE LEFT TIBIA AND FIBULA. NO RADIOGRAPHIC EVIDENCE OF ACUTE INJURY. Chest X-Ray 05/24/18 16:00 IMPRESSION: NO ACUTE RADIOGRAPHIC FINDING IN THE CHEST. Assessment and Plan - Diagnosis (1) Intertrochanteric fracture of left hip Qualifiers: Encounter type: initial encounter Fracture type: closed Fracture alignment: displaced Qualified Code(s): S72.142A - Displaced intertrochanteric fracture of left femur, initial encounter for closed fracture Is this a current diagnosis for this admission?: Yes Plan: Scheduled for ORIF of the left hip today. (2) HTN (hypertension) Is this a current diagnosis for this admission?: Yes Plan: Resume amlodipine. (3) Dementia Is this a current diagnosis for this admission?: Yes - Time Time Spent with patient: 15-24 minutes
[2018-05-25] MEDS ORDERED: MORPHINE SULFATE 10 MG/ML INJ IV PRN (13:19)
[2018-05-25] MEDS: HYDROCODONE/ACETAMINOPHEN 5-325 MG TABLET PO PRN (17:36)
[2018-05-25] MEDS: MORPHINE SULFATE 10 MG/ML INJ IV PRN ×2 (18:43→23:59)
[2018-05-25] MEDS: CEFAZOLIN SODIUM 2 GM in DEXTROSE 5%-WATER 100 ML IV SCH (19:41)
[2018-05-26] MEDS: CEFAZOLIN SODIUM 2 GM in DEXTROSE 5%-WATER 100 ML IV SCH (04:30)
[2018-05-26] MEDS: RINGERS SOLUTION,LACTATED 1,000 ML IV PRN (05:44)
--- NOTE | 2018-05-26 06:16 | PDOC PROGRESS REPORT ---
Subjective Progress Note for:: 05/26/18 Reason For Visit: HIP FRACTURE,CAD 87-year-old male now postop day 1 status post open reduction internal fixation of a left hip fracture. Patient appears comfortable this morning but difficult to arouse. Physical Exam Vital Signs: Temp Pulse Resp BP Pulse Ox 37.2 C 70 16 103/53 L 94 05/26/18 03:46 05/26/18 03:46 05/26/18 03:46 05/26/18 03:46 05/26/18 03:46 Intake & Output 05/24/18 05/25/18 05/26/18 06:59 06:59 06:59 Intake Total 900 3200 Output Total 275 Balance 900 2925 Weight 60.4 kg 66.4 kg General appearance: PRESENT: no acute distress Head exam: PRESENT: normocephalic Respiratory exam: PRESENT: unlabored Cardiovascular exam: PRESENT: RRR, tachycardia Pulses: PRESENT: +1 pedal pulses bilateral Vascular exam: PRESENT: normal capillary refill GI/Abdominal exam: PRESENT: soft Rectal exam: PRESENT: deferred Extremities exam: PRESENT: other - Left lower extremity dressings are clean dry and intact. Leg lengths are equal. Results Laboratory Results: 05/24/18 14:27 05/24/18 14:27 05/24/18 05/24/18 14:27 14:27 Creatine Kinase 92 CK-MB (CK-2) 0.48 Troponin I 0.029 Impressions: Hip X-Ray 05/24/18 00:00 IMPRESSION: There is a comminuted and displaced intertrochanteric fracture of the left hip. Lumbar Spine X-Ray 05/24/18 00:00 IMPRESSION: SPONDYLOSIS WITHOUT BONE LESION OR FRACTURE. Cervical Spine CT 05/24/18 11:41 IMPRESSION: Multilevel degenerative disc disease and spondylosis. Facet arthropathy. C7 and T1 appear to be fused. Head CT 05/24/18 11:41 IMPRESSION: No acute intracranial pathology. EVIDENCE OF ACUTE STROKE: NO. Humerus X-Ray 05/24/18 13:20 IMPRESSION: NEGATIVE STUDY OF THE RIGHT HUMERUS. NO RADIOGRAPHIC EVIDENCE OF ACUTE INJURY. Tibia/Fibula X-Ray 05/24/18 13:20 IMPRESSION: NEGATIVE STUDY OF THE LEFT TIBIA AND FIBULA. NO RADIOGRAPHIC EVIDENCE OF ACUTE INJURY. Chest X-Ray 05/24/18 16:00 IMPRESSION: NO ACUTE RADIOGRAPHIC FINDING IN THE CHEST. Status: Imported from PACS Assessment & Plan - Diagnosis (1) Intertrochanteric fracture of left hip Qualifiers: Encounter type: initial encounter Fracture type: closed Fracture alignment: displaced Qualified Code(s): S72.142A - Displaced intertrochanteric fracture of left femur, initial encounter for closed fracture Is this a current diagnosis for this admission?: Yes Plan: Mobilize with physical therapy and weightbearing as tolerated basis. Anticipate the need for fpc facility placement. Patient was previously a re sident at [facility].
[2018-05-26] MEDS: ENOXAPARIN SODIUM INJ 30 MG/0.3 ML DISP.SYRIN SUBCUT SCH ×2 (10:19→21:37)
[2018-05-26] MEDS: DOCUSATE SODIUM 100 MG CAPSULE PO SCH (10:19)
[2018-05-26] MEDS: AMLODIPINE BESYLATE 5 MG TABLET PO SCH (10:19)
[2018-05-26] MEDS: ASPIRIN 81 MG TABLET, ENT COATED PO SCH (10:19)
[2018-05-26 13:09] LABS: ANION GAP 5 (5-19); BLOOD UREA NITROGEN 20 mg/dL (7-20); CALCIUM 8.3 mg/dL (8.4-10.2); CARBON DIOXIDE 25 mmol/L (22-30); CHLORIDE 103 mmol/L (98-107); GLUCOSE 99 mg/dL (75-110); SODIUM 133.2 mmol/L (137-145)
[2018-05-26 13:23] LABS: ABSOLUTE EOSINOPHILS # (AUTO) 0.3 10^3/uL (0.0-0.6); ABSOLUTE LYMPHOCYTES (AUTO) 1.4 10^3/uL (0.5-4.7); ABSOLUTE MONOCYTES (AUTO) 0.8 10^3/uL (0.1-1.4); ABSOLUTE NEUT (AUTO) 6.4 10^3/uL (1.7-8.2); BASOPHILS % (AUTO) 0.4 % (0-2); EOSINOPHILS % (AUTO) 3.6 % (0-6); HEMATOCRIT 24.7 % (37.9-51.0); LYMPHOCYTES % (AUTO) 15.3 % (13-45); MEAN CORPUSCULAR HEMOGLOBIN 30.7 pg (27.0-33.4); MEAN CORPUSCULAR HGB CONC 34.3 g/dL (32.0-36.0); MEAN CORPUSCULAR VOLUME 89 fl (80-97); PLATELET COUNT 136 10^3/uL (150-450); RED BLOOD COUNT 2.77 10^6/uL (4.35-5.55); RED CELL DISTRIBUTION WIDTH 13.5 % (11.5-14.0); SEGMENTED NEUTROPHILS % (AUTO) 71.7 % (42-78); TOTAL CELLS COUNTED % (AUTO) 100 %
[2018-05-26 13:24] LABS: HEMOGLOBIN 8.5 g/dL (13.5-17.0)
--- NOTE | 2018-05-26 14:06 | PDOC PROGRESS REPORT ---
Subjective Progress Note for:: 05/26/18 Subjective:: This is an 87 year old male with a PMH of HTN, dementia, hyperlipidemia, and recent ORIF for a knee fracture and a tibial fracture as well who was sent to the ER from [place]. Patient reportedly fell from the bed on 05/23 in [place]. A pelvic xray was done which showed left hip fracture and he was sent to the ER. Patient was comfortable upon encounter this morning. He is scheduled for ORIF of the left hip today. 05/26: No acute event overnight. He underwent ORIF yesterday 05/25 which was uneventful. Upon encounter, he is fully awake and is at baseline, oriented to person only from his dementia and is able to tell me his name. Denies acute complaint or pain. Reason For Visit: HIP FRACTURE,CAD Physical Exam Vital Signs: Temp Pulse Resp BP Pulse Ox 99.3 F 90 16 107/56 L 97 05/26/18 11:33 05/26/18 11:33 05/26/18 11:33 05/26/18 11:33 05/26/18 11:33 Intake & Output 05/25/18 05/26/18 05/27/18 06:59 06:59 06:59 Intake Total 900 3200 Output Total 275 Balance 900 2925 Weight 133 lb 2.547 oz 146 lb 6.191 oz General appearance: PRESENT: no acute distress, well-developed, well-nourished Head exam: PRESENT: atraumatic, normocephalic Eye exam: PRESENT: conjunctiva pink, EOMI, PERRLA. ABSENT: scleral icterus Ear exam: PRESENT: normal external ear exam Mouth exam: PRESENT: moist, tongue midline Neck exam: ABSENT: carotid bruit, JVD, lymphadenopathy, thyromegaly Respiratory exam: PRESENT: clear to auscultation philip. ABSENT: rales, rhonchi, wheezes Cardiovascular exam: PRESENT: RRR. ABSENT: diastolic murmur, rubs, systolic murmur Pulses: PRESENT: normal dorsalis pedis pul GI/Abdominal exam: PRESENT: normal bowel sounds, soft. ABSENT: distended, guarding, mass, organolmegaly, rebound, tenderness Rectal exam: PRESENT: deferred Neurological exam: PRESENT: alert, oriented to person, CN II-XII grossly intact. ABSENT: motor sensory deficit Results Laboratory Results: 05/26/18 12:18 05/26/18 12:18 05/26/18 05/26/18 12:18 12:18 WBC 9.0 RBC 2.77 L Hgb 8.5 L D Hct 24.7 L MCV 89 MCH 30.7 MCHC 34.3 RDW 13.5 Plt Count 136 L Seg Neutrophils % 71.7 Lymphocytes % 15.3 Monocytes % 9.0 Eosinophils % 3.6 Basophils % 0.4 Absolute Neutrophils 6.4 Absolute Lymphocytes 1.4 Absolute Monocytes 0.8 Absolute Eosinophils 0.3 Absolute Basophils 0.0 Sodium 133.2 L Potassium 4.0 Chloride 103 Carbon Dioxide 25 Anion Gap 5 BUN 20 Creatinine 0.99 Est GFR ( Amer) > 60 Est GFR (Non-Af Amer) > 60 Glucose 99 Calcium 8.3 L 05/24/18 05/24/18 14:27 14:27 Creatine Kinase 92 CK-MB (CK-2) 0.48 Troponin I 0.029 Impressions: Hip X-Ray 05/24/18 00:00 IMPRESSION: There is a comminuted and displaced intertrochanteric fracture of the left hip. Lumbar Spine X-Ray 05/24/18 00:00 IMPRESSION: SPONDYLOSIS WITHOUT BONE LESION OR FRACTURE. Cervical Spine CT 05/24/18 11:41 IMPRESSION: Multilevel degenerative disc disease and spondylosis. Facet arthropathy. C7 and T1 appear to be fused. Head CT 05/24/18 11:41 IMPRESSION: No acute intracranial pathology. EVIDENCE OF ACUTE STROKE: NO. Humerus X-Ray 05/24/18 13:20 IMPRESSION: NEGATIVE STUDY OF THE RIGHT HUMERUS. NO RADIOGRAPHIC EVIDENCE OF ACUTE INJURY. Tibia/Fibula X-Ray 05/24/18 13:20 IMPRESSION: NEGATIVE STUDY OF THE LEFT TIBIA AND FIBULA. NO RADIOGRAPHIC EVIDENCE OF ACUTE INJURY. Chest X-Ray 05/24/18 16:00 IMPRESSION: NO ACUTE RADIOGRAPHIC FINDING IN THE CHEST. Assessment and Plan - Diagnosis (1) Intertrochanteric fracture of left hip Qualifiers: Encounter type: initial encounter Fracture type: closed Fracture alignm ent: displaced Qualified Code(s): S72.142A - Displaced intertrochanteric fracture of left femur, initial encounter for closed fracture Is this a current diagnosis for this admission?: Yes Plan: S/P ORIF of the left hip yesterday 4/12. PT eval. Increase activity. (2) HTN (hypertension) Is this a current diagnosis for this admission?: Yes Plan: Controlled. Continue amlodipine. (3) Dementia Is this a current diagnosis for this admission?: Yes Plan: At baseline. - Time Time Spent with patient: 15-24 minutes
--- NOTE | 2018-05-26 20:18 | RADIOLOGY REPORT (SQ) ---
EXAM DESCRIPTION: XR HIP INTRAOPERATIVE COMPLETED DATE/TME: 05/25/2018 00:00 CLINICAL HISTORY: 87 years, Male, ORIF LEFT HIP ASST WITH FLUORO IN OR COMPARISON: None. NUMBER OF VIEWS: Five fluoroscopic spot images were submitted for review. TECHNIQUE: Fluoroscopy was utilized intraoperatively for the purposes of ORIF of the left hip. Total fluoroscopy time was 0.8 minutes. LIMITATIONS: None. Impression: Images show postprocedural changes of open reduction/internal fixation of proximal femoral fracture with intramedullary nader and gamma nail. For specific details, refer to the procedure note. copyright 2010 [employer]- All Rights Reserved
[2018-05-26] MEDS: HYDROCODONE/ACETAMINOPHEN 5-325 MG TABLET PO PRN (22:56)
[2018-05-27] MEDS: RINGERS SOLUTION,LACTATED 1,000 ML IV PRN ×2 (00:45→09:39)
[2018-05-27] MEDS: HYDROCODONE/ACETAMINOPHEN 5-325 MG TABLET PO PRN ×2 (05:39→16:22)
[2018-05-27] MEDS: ASPIRIN 81 MG TABLET, ENT COATED PO SCH (09:39)
[2018-05-27] MEDS: DOCUSATE SODIUM 100 MG CAPSULE PO SCH (09:39)
[2018-05-27] MEDS: ENOXAPARIN SODIUM INJ 30 MG/0.3 ML DISP.SYRIN SUBCUT SCH (09:44)
[2018-05-27] MEDS: AMLODIPINE BESYLATE 5 MG TABLET PO SCH (09:45)
--- NOTE | 2018-05-27 13:02 | PDOC PROGRESS REPORT ---
Subjective Progress Note for:: 05/27/18 Subjective:: This is an 87 year old male with a PMH of HTN, dementia, hyperlipidemia, and recent ORIF for a knee fracture and a tibial fracture as well who was sent to the ER from [place]. Patient reportedly fell from the bed on 05/23 in [place]. A pelvic xray was done which showed left hip fracture and he was sent to the ER. Patient was comfortable upon encounter this morning. He is scheduled for ORIF of the left hip today. 05/26: He underwent ORIF yesterday 05/25 which was uneventful. Upon encounter, he is fully awake and is at baseline, oriented to person only from his dementia and is able to tell me his name. Denies acute complaint or pain. 05/27: No acute event overnight. His pain is well controlled.He is oriented to person and is at his baseline. Denies acute complaint. Awaiting PT eval. Ortho has cleared him for discharge tomorrow if there is no acute issue overnight. Reason For Visit: HIP FRACTURE,CAD Physical Exam Vital Signs: Temp Pulse Resp BP Pulse Ox 98.4 F 90 15 132/65 H 100 05/27/18 11:46 05/27/18 11:46 05/27/18 07:48 05/27/18 11:46 05/27/18 11:46 Intake & Output 05/26/18 05/27/18 05/28/18 06:59 06:59 06:59 Intake Total 3200 2102 1000 Output Total 275 400 Balance 2925 1702 1000 Weight 146 lb 6.191 oz 154 lb 12.232 oz General appearance: PRESENT: no acute distress, well-developed, well-nourished Head exam: PRESENT: atraumatic, normocephalic Eye exam: PRESENT: conjunctiva pink, EOMI, PERRLA. ABSENT: scleral icterus Ear exam: PRESENT: normal external ear exam Mouth exam: PRESENT: moist, tongue midline Neck exam: ABSENT: carotid bruit, JVD, lymphadenopathy, thyromegaly Respiratory exam: PRESENT: clear to auscultation philip. ABSENT: rales, rhonchi, wheezes Cardiovascular exam: PRESENT: RRR. ABSENT: diastolic murmur, rubs, systolic murmur Pulses: PRESENT: normal dorsalis pedis pul Vascular exam: PRESENT: normal capillary refill GI/Abdominal exam: PRESENT: normal bowel sounds, soft. ABSENT: distended, guarding, mass, organolmegaly, rebound, tenderness Rectal exam: PRESENT: deferred Neurological exam: PRESENT: alert, awake, oriented to person, CN II-XII grossly intact. ABSENT: motor sensory deficit Results Laboratory Results: 05/26/18 12:18 05/26/18 12:18 05/26/18 05/26/18 12:18 12:18 WBC 9.0 RBC 2.77 L Hgb 8.5 L D Hct 24.7 L MCV 89 MCH 30.7 MCHC 34.3 RDW 13.5 Plt Count 136 L Seg Neutrophils % 71.7 Lymphocytes % 15.3 Monocytes % 9.0 Eosinophils % 3.6 Basophils % 0.4 Absolute Neutrophils 6.4 Absolute Lymphocytes 1.4 Absolute Monocytes 0.8 Absolute Eosinophils 0.3 Absolute Basophils 0.0 Sodium 133.2 L Potassium 4.0 Chloride 103 Carbon Dioxide 25 Anion Gap 5 BUN 20 Creatinine 0.99 Est GFR ( Amer) > 60 Est GFR (Non-Af Amer) > 60 Glucose 99 Calcium 8.3 L 05/24/18 05/24/18 14:27 14:27 Creatine Kinase 92 CK-MB (CK-2) 0.48 Troponin I 0.029 Impressions: Lumbar Spine X-Ray 05/24/18 00:00 IMPRESSION: SPONDYLOSIS WITHOUT BONE LESION OR FRACTURE. Cervical Spine CT 05/24/18 11:41 IMPRESSION: Multilevel degenerative disc disease and spondylosis. Facet arthropathy. C7 and T1 appear to be fused. Head CT 05/24/18 11:41 IMPRESSION: No acute intracranial pathology. EVIDENCE OF ACUTE STROKE: NO. Humerus X-Ray 05/24/18 13:20 IMPRESSION: NEGATIVE STUDY OF THE RIGHT HUMERUS. NO RADIOGRAPHIC EVIDENCE OF ACUTE INJURY. Tibia/Fibula X-Ray 05/24/18 13:20 IMPRESSION: NEGATIVE STUDY OF THE LEFT TIBIA AND FIBULA. NO RADIOGRAPHIC EVIDENCE OF ACUTE INJURY. Chest X-Ray 05/24/18 16:00 IMPRESSION: NO ACUTE RADIOGRAPHIC FINDING IN THE CHEST. Assessment and Plan - Diagnosis (1) Intertrochanteric fracture of left hip Qualifiers: Encounter type: initial encounter Fracture type: closed Fracture alignment: displaced Qualified Code(s): S72.142A - Displaced intertrochanteric fracture of left femur, initial encounter for closed fracture Is this a current diagnosis for this admission?: Yes Plan: S/P ORIF of the left hip yesterday 05/25. PT eval. Increase activity. 05/27: His pain is well controlled.He is oriented to person and is at his baseline. Denies acute complaint. Awaiting PT eval. Ortho has cleared him for discharge tomorrow if there is no acute issue overnight. (2) HTN (hypertension) Is this a current diagnosis for this admission?: Yes Plan: Controlled. Continue amlodipine. (3) Dementia Is this a current diagnosis for this admission?: Yes Plan: At baseline. (4) Acute blood loss anemia Is this a current diagnosis for this admission?: Yes Plan: Mild Hb drop likely procedural related. - Time Time Spent with patient: 15-24 minutes
[2018-05-27 13:58] LABS: HEMATOCRIT 22.3 % (37.9-51.0); MEAN CORPUSCULAR HEMOGLOBIN 29.8 pg (27.0-33.4); MEAN CORPUSCULAR HGB CONC 33.5 g/dL (32.0-36.0); MEAN CORPUSCULAR VOLUME 89 fl (80-97); PLATELET COUNT 124 10^3/uL (150-450); RED BLOOD COUNT 2.51 10^6/uL (4.35-5.55); RED CELL DISTRIBUTION WIDTH 13.6 % (11.5-14.0); WHITE BLOOD COUNT 6.4 10^3/uL (4.0-10.5)
[2018-05-27 14:00] LABS: HEMOGLOBIN 7.5 g/dL (13.5-17.0)
--- NOTE | 2018-05-27 15:16 | RADIOLOGY REPORT (SQ) ---
EXAM DESCRIPTION: CT LT LOWER EXTREMITY WITHOUT COMPLETED DATE/TIME: 05/27/2018 2:50 pm REASON FOR STUDY: r/o intramuscular bleed, left LE COMPARISON: 04/14/2018. TECHNIQUE: Axial imaging performed through the left thigh I. with reformatted coronal and sagittal i maging windowed for bone and soft tissues. Images saved to PACS. 3D IMAGING: Were 3D images as MIP, SSD, or volume rendering performed at the work station? No All CT scanners at this facility use dose modulation, iterative reconstruction, and/or weight based d osing when appropriate to reduce radiation dose to as low as reasonably achievable (ALARA). [facility]: Dose Right [facility]: CareDose [facility]: Dose Right [facility]: Teradose 4D [facility]: [employer] LIMITATIONS: This study is significantly limited by streak artifact from left femoral instrumentatio n. Also limited by lack of IV contrast. RADIATION DOSE: CT Rad equipment meets quality standard of care and radiation dose reduction techniq ues were employed. CTDIvol: 4.1 mGy. DLP: 128 mGy-cm. mGy. FINDINGS: SOFT TISSUES: Mild dots of gas in the soft tissues along the left thigh and flank related to the recent surgery. There is generalized mild subcutaneous edema. Probable generalized muscle ed jerri. Difficult to detect any focal hematoma or drainable collection, however. Please note, hematoma might be isodense to muscle and difficult to discretely visualize however. BONES: Osteopenic. Status post open reduction internal fixation of hip fracture. MINERALIZATION: Osteopenic. OTHER: No other significant finding. IMPRESSION: 1. Limited study. No definite drainable collection or large hematoma. TECHNICAL DOCUMENTATION: JOB ID: [id number] Quality ID # [id number]: Final reports with documentation of one or more dose reduction techniques (e.g., Au tomated exposure control, adjustment of the mA and/or kV according to patient size, use of iterative reconstruction technique) 2010 [employer] ([employer])- All Rights Reserved Reading location - IP/workstation name: [email or web address] [email or web address]
[2018-05-27] MEDS: MORPHINE SULFATE 10 MG/ML INJ IV PRN (17:53)
[2018-05-27 20:29] LABS: ABSOLUTE BASOPHILS # (AUTO) 0.1 10^3/uL (0.0-0.2); ABSOLUTE EOSINOPHILS # (AUTO) 0.3 10^3/uL (0.0-0.6); ABSOLUTE LYMPHOCYTES (AUTO) 1.1 10^3/uL (0.5-4.7); ABSOLUTE MONOCYTES (AUTO) 0.8 10^3/uL (0.1-1.4); ABSOLUTE NEUT (AUTO) 6.1 10^3/uL (1.7-8.2); BASOPHILS % (AUTO) 0.8 % (0-2); EOSINOPHILS % (AUTO) 3.1 % (0-6); HEMATOCRIT 23.5 % (37.9-51.0); LYMPHOCYTES % (AUTO) 13.7 % (13-45); MEAN CORPUSCULAR HEMOGLOBIN 29.9 pg (27.0-33.4); MEAN CORPUSCULAR HGB CONC 33.8 g/dL (32.0-36.0); MEAN CORPUSCULAR VOLUME 89 fl (80-97); MONOCYTES % (AUTO) 9.2 % (3-13); PLATELET COUNT 143 10^3/uL (150-450); RED BLOOD COUNT 2.66 10^6/uL (4.35-5.55); RED CELL DISTRIBUTION WIDTH 13.2 % (11.5-14.0); SEGMENTED NEUTROPHILS % (AUTO) 73.2 % (42-78); TOTAL CELLS COUNTED % (AUTO) 100 %; WHITE BLOOD COUNT 8.3 10^3/uL (4.0-10.5)
[2018-05-27 20:31] LABS: HEMOGLOBIN 7.9 g/dL (13.5-17.0)
[2018-05-28] MEDS: HYDROCODONE/ACETAMINOPHEN 5-325 MG TABLET PO PRN ×2 (00:30→06:56)
[2018-05-28] MEDS: ASPIRIN 81 MG TABLET, ENT COATED PO SCH (09:07)
[2018-05-28] MEDS: DOCUSATE SODIUM 100 MG CAPSULE PO SCH (09:07)
[2018-05-28] MEDS: AMLODIPINE BESYLATE 5 MG TABLET PO SCH (09:07)
--- NOTE | 2018-05-28 12:14 | PDOC TRANSFER SUMMARY ---
General - Admit/Disc Date/PCP Admission Date/Primary Care Provider: 05/24/18 16:02 DAMIR SIFUENTES MD Discharge Date: 05/28/18 - Discharge Diagnosis (1) Intertrochanteric fracture of left hip Is this a current diagnosis for this admission?: Yes (2) HTN (hypertension) Is this a current diagnosis for this admission?: Yes (3) Dementia Is this a current diagnosis for this admission?: Yes (4) Acute blood loss anemia Is this a current diagnosis for this admission?: Yes - Additional Information Resuscitation Status: Full Code Prescriptions: Aspirin [Ecotrin 81 mg EC Tablet] 81 mg PO DAILY 30 Days #30 tabec Hydrocodone/Acetaminophen [Agency 5-325 mg Tablet] 1 tab PO Q8HP PRN #9 tablet PRN Reason: Home Medications: Amlodipine Besylate [Norvasc 5 mg Tablet] 5 mg PO DAILY 05/24/18 Divalproex Sodium [Depakote] 125 mg PO BID 05/24/18 Docusate Sodium [Colace 100 mg Capsule] 100 mg PO DAILY 05/24/18 Furosemide [Lasix 20 mg Tablet] 20 mg PO DAILYP PRN 05/24/18 Aspirin [Ecotrin 81 mg EC Tablet] 81 mg PO DAILY 30 Days #30 tabec 05/28/18 Hydrocodone/Acetaminophen [Agency 5-325 mg Tablet] 1 tab PO Q8HP PRN #9 tablet 05/28/18 History of Present Illness Admission Date/PCP: 05/24/18 16:02 DAMIR SIFUENTES MD History of Present Illness: JENNIFER DUONG is a 87 year old male with a PMH of HTN, dementia, hyperlipidemia, and recent ORIF for a knee fracture who was sent to the ER from [place]. Patient reportedly fell from the bed last night in [place]. A pelvic xray was done which showed left hip fracture and he was sent to the ER. Upon encounter, he is oriented to person which is apparently his baseline. Called patient's DPOA, Tirso Aguilar. He says patient is a DNR (no chest compr essions or defibrillation) but is okay for short term/temporary ventilation of needed for surgery. Hospital Course Hospital Course: This is an 87 year old male with a PMH of HTN, dementia, hyperlipidemia, and recent ORIF for a knee fracture and a tibial fracture as well who was sent to the ER from [place]. Patient reportedly fell from the bed on 05/23 in [place]. A pelvic xray was done which showed left hip fracture and he was sent to the ER. Patient was comfortable upon encounter this morning. He is scheduled for ORIF of the left hip today. 05/26: He underwent ORIF yesterday 05/25 which was uneventful. Upon encounter, he is fully awake and is at baseline, oriented to person only from his dementia and is able to tell me his name. Denies acute complaint or pain. 05/27: No acute event overnight. His pain is well controlled. He is oriented to person and is at his baseline. Denies acute complaint. Awaiting PT eval. Ortho has cleared him for discharge tomorrow if there is no acute issue overnight. 05/28: He is at his baseline mentation. Hemoglobin slightly went down after surgery but has been stable. CT of the leg did not show any hematoma or bleed on the surgical site. He will be discharged on aspirin for 30 days for VTE prophylaxis post orthopedic procedure per orthopedic surgeon. Physical Exam Vital Signs: Temp Pulse Resp BP Pulse Ox 98.9 F 87 12 125/60 91 L 05/28/18 07:39 05/28/18 07:39 05/28/18 07:39 05/28/18 07:39 05/28/18 07:39 Intake & Output 05/27/18 05/28/18 05/29/18 06:59 06:59 06:59 Intake Total 2102 2726 Output Total 400 200 Balance 1702 2526 Weight 154 lb 12.232 oz 157 lb 3.033 oz General appearance: PRESENT: no acute distress, well-developed, well-nourished Head exam: PRESENT: atraumatic, normocephalic Eye exam: PRESENT: conjunctiva pink, EOMI, PERRLA. ABSENT: scleral icterus Ear exam: PRESENT: normal external ear exam Mouth exam: PRESENT: moist, tongue midline Neck exam: ABSENT: carotid bruit, JVD, lymphadenopathy, thyromegaly Respiratory exam: PRESENT: clear to auscultation philip. ABSENT: rales, rhonchi, wheezes Cardiovascular exam: PRESENT: RRR. ABSENT: diastolic murmur, rubs, systolic murmur Pulses: PRESENT: normal dorsalis pedis pul GI/Abdominal exam: PRESENT: normal bowel sounds, soft. ABSENT: distended, guarding, mass, organolmegaly, rebound, tenderness Rectal exam: PRESENT: deferred Neurological exam: PRESENT: alert, awake, oriented to person, CN II-XII grossly intact. ABSENT: motor sensory deficit Results Laboratory Results: 05/27/18 20:15 05/26/18 12:18 05/27/18 05/27/18 13:45 20:15 WBC 6.4 8.3 RBC 2.51 L 2.66 L Hgb 7.5 L 7.9 L Hct 22.3 L 23.5 L MCV 89 89 MCH 29.8 29.9 MCHC 33.5 33.8 RDW 13.6 13.2 Plt Count 124 L 143 L Seg Neutrophils % 73.2 Lymphocytes % 13.7 Monocytes % 9.2 Eosinophils % 3.1 Basophils % 0.8 Absolute Neutrophils 6.1 Absolute Lymphocytes 1.1 Absolute Monocytes 0.8 Absolute Eosinophils 0.3 Absolute Basophils 0.1 05/24/18 05/24/18 14:27 14:27 Creatine Kinase 92 CK-MB (CK-2) 0.48 Troponin I 0.029 Impressions: Lumbar Spine X-Ray 05/24/18 00:00 IMPRESSION: SPONDYLOSIS WITHOUT BONE LESION OR FRACTURE. Cervical Spine CT 05/24/18 11:41 IMPRESSION: Multilevel degenerative disc disease and spondylosis. Facet arthropathy. C7 and T1 appear to be fused. Head CT 05/24/18 11:41 IMPRESSION: No acute intracranial pathology. EVIDENCE OF ACUTE STROKE: NO. Humerus X-Ray 05/24/18 13:20 IMPRESSION: NEGATIVE STUDY OF THE RIGHT HUMERUS. NO RADIOGRAPHIC EVIDENCE OF ACUTE INJURY. Tibia/Fibula X-Ray 05/24/18 13:20 IMPRESSION: NEGATIVE STUDY OF THE LEFT TIBIA AND FIBULA. NO RADIOGRAPHIC EVIDENCE OF ACUTE INJURY. Chest X-Ray 05/24/18 16:00 IMPRESSION: NO ACUTE RADIOGRAPHIC FINDING IN THE CHEST. Lower Extremity CT 05/27/18 14:06 IMPRESSION: 1. Limited study. No definite drainable collection or large hematoma. Qualifiers - * PATIENT BEING DISCHARGED WITH ANY OF THE FOLLOWING DIAGNOSIS: No
[2018-05-28 16:44] VITALS: BP 93/53
== END 2018-05-28 17:22 | DRG 481 ==
LOC: ER 10:50 → EH 16:02 → 4S 18:40
PROVIDERS: ADMIT Internal Medicine; ATTEND Internal Medicine
PROC: 0QS706Z Reposition Left Upper Femur with Intramedullary Internal Fixation Device, Open Approach (ICD-10-PCS; principal; 2018-05-25 10:30)
DX: S72.142A Displaced intertrochanteric fracture of left femur, initial encounter for closed fracture (principal); D62 Acute posthemorrhagic anemia; W06.XXXA Fall from bed, initial encounter; Y92.122 Bedroom in nursing home as the place of occurrence of the external cause; F03.90 Unspecified dementia, unspecified severity, without behavioral disturbance, psychotic disturbance, mood disturbance, and anxiety; I10 Essential (primary) hypertension; E78.5 Hyperlipidemia, unspecified; Z66 Do not resuscitate; J45.909 Unspecified asthma, uncomplicated; S82.142S Displaced bicondylar fracture of left tibia, sequela; S42.411S Displaced simple supracondylar fracture without intercondylar fracture of right humerus, sequela; Z79.82 Long term (current) use of aspirin; Z95.0 Presence of cardiac pacemaker
CPT/HCPCS: 01230; 36415; 70450; 71045; 72100; 72125; 80048; 80053; 82550; 82553; 82962; 84484; 85025; 85027; 93005; 93010; 96374; 99285; J0690; J1650; J2250; J2270; J2704; J3010; J3490; J7120

== ENCOUNTER 2018-06-18 13:30 | Emergency (ER) | payer MEDICARE, OTHER ==
[2018-06-18] MEDS ORDERED: IPRATROPIUM/ALBUTEROL 0.5-2.5 MG/3 ML AMPUL NEB ONE (14:09)
[2018-06-18] MEDS ORDERED: NORMAL SALINE 500 ML IV ONE (14:10)
--- NOTE | 2018-06-18 14:10 | ER Document Report ---
ED General - General Stated Complaint: SICK Time Seen by Provider: 06/18/18 14:08 Primary Care Provider: DAMIR SIFUENTES MD [Primary Care Provider] - Follow up as needed TRAVEL OUTSIDE OF THE [place] IN LAST 30 DAYS: No - Related Data Allergies/Adverse Reactions: No Known Allergies Allergy (Verified 05/24/18 11:15) Past Medical History - Social History Family History: Reviewed & Not Pertinent - Past Medical History Cardiac Medical History: Reports: Hx Hypertension Denies: Hx Atrial Fibrillation, Hx Congestive Heart Failure, Hx Coronary Artery Disease, Hx Heart Attack, Hx Hypercholesterolemia, Hx Peripheral Vascular Disease, Hx Pulmonary Embolism, Hx Heart Murmur Pulmonary Medical History: Reports: Hx Asthma - Asthamatic bronchitis , Hx Bronchitis, Hx Pneumonia Denies: Hx COPD, Hx Respiratory Failure, Hx Sleep Apnea, Hx Tuberculosis Neurological Medical History: Denies: Hx Cerebrovascular Accident, Hx Seizures Renal/ Medical History: Denies: Hx Peritoneal Dialysis Malignancy Medical History: Denies Hx Lung Cancer Musculoskeletal Medical History: Denies Hx Arthritis, Denies Hx Fibromyalgia, Denies Hx Multiple Sclerosis, Denies Hx Muscular Dystrophy Psychiatric Medical History: Reports: Hx Dementia Traumatic Medical History: Reports: Hx Fractures - Curent L tibia and R elbow fx Past Surgical History: Reports: Hx Cardiac Catheterization - pacemaker, Hx Cardiac Surgery - pacemaker, Hx Orthopedic Surgery - Recent ORIF right elbow left tibia, Hx Pacemaker - 2017. Denies: Hx Appendectomy, Hx Bowel Surgery, Hx Cholecystectomy, Hx Coronary Artery Bypass Graft, Hx Gastric Bypass Surgery, Hx Herniorrhaphy, Hx Tonsillectomy Discharge - Discharge Referrals: DAMIR SIFUENTES MD [Primary Care Provider] - Follow up as needed
--- NOTE | 2018-06-18 14:19 | ER Document Report ---
ED General - General Stated Complaint: SICK Time Seen by Provider: 06/18/18 14:08 Primary Care Provider: DAMIR SIFUENTES MD [Primary Care Provider] - Follow up as needed Mode of Arrival: Ambulatory Information source: Emergency Med Personnel, [facility] Records, Outside Facility Records Cannot obtain history due to: Dementia Notes: 89-year-old male with dementia, hypertension, hyperlipidemia, asthma presented via EMS from [facility] with concern for desaturation. Per EMS during vitals check the patient was found to be hypoxic in the 80s. EMS reports that upon their arrival the patient was alert, awake and in no acute respiratory distress. They noted that the patient's hands were cold and after warming the patient was 100% on room air. They also state that nursing told him that the patient is altered although his baseline is AO x1. TRAVEL OUTSIDE OF THE [place] IN LAST 30 DAYS: No - HPI Onset: Just prior to arrival Onset/Duration: Sudden - Related Data Allergies/Adverse Reactions: No Known Allergies Allergy (Verified 05/24/18 11:15) Past Medical History - General Information source: Patient, [facility] Records, Outside Facility Records Cannot obtain history due to: Dementia - Social History Smoking Status: Unknown if Ever Smoked Lives with: Longterm Family History: Reviewed & Not Pertinent - Past Medical History Cardiac Medical History: Reports: Hx Hypertension Denies: Hx Atrial Fibrillation, Hx Congestive Heart Failure, Hx Coronary Artery Disease, Hx Heart Attack, Hx Hypercholesterolemia, Hx Peripheral Vascular Disease, Hx Pulmonary Embolism, Hx Heart Murmur Pulmonary Medical History: Reports: Hx Asthma - Asthamatic bronchitis , Hx Bronchitis, Hx Pneumonia Denies: Hx COPD, Hx Respiratory Failure, Hx Sleep Apnea, Hx Tuberculosis Neurological Medical History: Denies: Hx Cerebrovascular Accident, Hx Seizures Renal/ Medical History: Denies: Hx Peritoneal Dialysis Malignancy Medical History: Denies Hx Lung Cancer Musculoskeletal Medical History: Denies Hx Arthritis, Denies Hx Fibromyalgia, Denies Hx Multiple Sclerosis, Denies Hx Muscular Dystrophy Psychiatric Medical History: Reports: Hx Dementia Traumatic Medical History: Reports: Hx Fractures - Curent L tibia and R elbow fx Past Surgical History: Reports: Hx Cardiac Catheterization - pacemaker, Hx Cardiac Surgery - pacemaker, Hx Orthopedic Surgery - Recent ORIF right elbow left tibia, Hx Pacemaker - 2017. Denies: Hx Appendectomy, Hx Bowel Surgery, Hx Cholecystectomy, Hx Coronary Artery Bypass Graft, Hx Gastric Bypass Surgery, Hx Herniorrhaphy, Hx Tonsillectomy Review of Systems - Review of Systems -: Yes ROS unobtainable due to patient's medical condition Physical Exam - Notes Notes: PHYSICAL EXAMINATION: GENERAL: Well-appearing, well-nourished and in no acute distress. HEAD: Atraumatic, normocephalic. EYES: Pupils equal round and reactive to light, extraocular movements intact, sclera anicteric, conjunctiva are normal. ENT: Nares patent, oropharynx clear without exudates. Dry mucous membranes. NECK: Normal range of motion, supple without lymphadenopathy LUNGS: Breath sounds clear to auscultation bilaterally and equal. No wheezes rales or rhonchi. HEART: Regular rate and rhythm without murmurs ABDOMEN: Soft, nontender, nondistended abdomen. No guarding, no rebound. No masses appreciated. Musculoskeletal: Contracted NEUROLOGICAL: Alert and awake PSYCH: Normal mood, normal affect. SKIN: Warm, Dry, normal turgor, no rashes or lesions noted. Course - Re-evaluation Re-evalutation: 06/18/18 21:36 Laboratory 06/18/18 06/18/18 06/18/18 14:55 14:55 15:20 WBC 6.8 RBC 3.53 L Hgb 10.2 L Hct 30.8 L MCV 87 MCH 28.8 MCHC 33.0 RDW 14.3 H Plt Count 266 Seg Neutrophils % 73.1 Lymphocytes % 15.3 Monocytes % 8.4 Eosinophils % 2.6 Basophils % 0.6 Absolute Neutrophils 5.0 Absolute Lymphocytes 1.0 Absolute Monocytes 0.6 Absolute Eosinophils 0.2 Absolute Basophils 0.0 Sodium 139.4 Potassium 4.1 Chloride 101 Carbon Dioxide 31 H Anion Gap 7 BUN 23 H Creatinine 1.08 Est GFR ( Amer) > 60 Est GFR (Non-Af Amer) > 60 Glucose 106 Calcium 9.1 Urine Color STRAW Urine Appearance CLEAR Urine pH 5.0 Ur Specific [place] 1.009 Urine Protein NEGATIVE Urine Glucose (UA) NEGATIVE Urine Ketones NEGATIVE Urine Blood NEGATIVE Urine Nitrite NEGATIVE Urine Bilirubin NEGATIVE Urine Urobilinogen NEGATIVE Ur Leukocyte Esterase NEGATIVE Urine WBC (Auto) 0 Urine RBC (Auto) 0 Urine Mucus (Auto) RARE Urine Ascorbic Acid NEGATIVE Chest X-Ray 06/18/18 14:26 IMPRESSION: NO ACUTE RADIOGRAPHIC FINDING IN THE CHEST. Head CT 06/18/18 14:26 IMPRESSION: CHRONIC CHANGES OF ATROPHY AND MICROVASCULAR ISCHEMIA. NO ACUTE PROCESS. EVIDENCE OF ACUTE STROKE: NO. 87-year-old male presents via EMS from [facility] where nursing reports that they found him hypoxic, altered. EMS reported upon their arrival the patient's hands were cold and after warming them up the pulse ox read 100% on room air. Patient does have a history of dementia and is at his baseline per the power of real estate associate attorney who did present shortly after the patient's initial presentation. CBC, CMP, urinalysis within normal limits. Chest x-ray and head CT showed no acute process. Patient will be discharged back to [facility] in stable condition. Patient was evaluated and treated as appropriate for the patient's presenting symptoms and complaint, with consideration of any critical or life threatening conditions that may be associated with their obtained history and exam as noted above. All results were discussed with patient's power of real estate associate attorney who is at the bedside. Patient provided the opportunity to ask questions, and express concerns. Patient was educated on treatments based on their presumed diagnosis as noted above. At this time we will discharge the patient with return precautions and follow-up recommendations. Verbal discharge instructions given a the bedside. Medication warnings reviewed. Patient is in agreement with this plan and has verbalized understanding of return precautions. After careful consideration I feel that that patient can be safely discharged from the emergency department, they were advised to followup with a primary care physician in 2-3 days. Dictation on this chart was performed using voice recognition software and may result in unintended grammatical, spelling, syntax or errors. - Laboratory Result Diagrams: 06/18/18 14:55 06/18/18 14:55 Laboratory results interpreted by me: 06/18/18 06/18/18 14:55 14:55 RBC 3.53 L Hgb 10.2 L Hct 30.8 L RDW 14.3 H Carbon Dioxide 31 H BUN 23 H - Diagnostic Test Radiology reviewed: Image reviewed, Reports reviewed Discharge - Discharge Clinical Impression: Dementia Qualifiers: Dementia type: unspecified type Dementia behavioral disturbance: with behavioral disturbance Qualified Code(s): F03.91 - Unspecified dementia with behavioral disturbance Condition: Good Disposition: SNF-Other Instructions: Dementia ([facility]) Referrals: DAMIR SIFUENTES MD [Primary Care Provider] - Follow up as needed
--- NOTE | 2018-06-18 14:54 | RADIOLOGY REPORT (SQ) ---
EXAM DESCRIPTION: CT HEAD WITHOUT COMPLETED DATE/TIME: 06/18/2018 2:45 pm REASON FOR STUDY: ams COMPARISON: None. TECHNIQUE: Axial images acquired through the brain without intravenous contrast. Images reviewed wi th bone, brain and subdural windows. Additional sagittal and coronal reconstructions were generated. Images stored on PACS. All CT scanners at this facility use dose modulation, iterative reconstruction, and/or weight based d osing when appropriate to reduce radiation dose to as low as reasonably achievable (ALARA). [facility]: Dose Right [facility]: CareDose [facility]: Dose Right [facility]: Teradose 4D [facility]: [employer] RADIATION DOSE: CT Rad equipment meets quality standard of care and radiation dose reduction techniq ues were employed. CTDIvol: 53.2 mGy. DLP: 1017 mGy-cm.mGy. LIMITATIONS: None. FINDINGS: VENTRICLES: Prominent. CEREBRUM: No masses. No hemorrhage. No midline shift. Areas of low density in the white matter mos t likely due to chronic micro-vascular ischemic change. No evidence for acute infarction. CEREBELLUM: No masses. No hemorrhage. No alteration of density. No evidence for acute infarction. EXTRAAXIAL SPACES: Age-related involutional change. No fluid collections. No masses. ORBITS AND GLOBE: No intra- or extraconal masses. Normal contour of globe without masses. CALVARIUM: No fracture. PARANASAL SINUSES: No fluid or mucosal thickening. SOFT TISSUES: No mass or hematoma. OTHER: No other significant finding. IMPRESSION: CHRONIC CHANGES OF ATROPHY AND MICROVASCULAR ISCHEMIA. NO ACUTE PROCESS. EVIDENCE OF ACUTE STROKE: NO. TECHNICAL DOCUMENTATION: JOB ID: [id number] Quality ID # [id number]: Final reports with documentation of one or more dose reduction techniques (e.g., Au tomated exposure control, adjustment of the mA and/or kV according to patient size, use of iterative reconstruction technique) 2010 [employer]- All Rights Reserved Reading location - IP/workstation name: [email or web address]
--- NOTE | 2018-06-18 14:58 | RADIOLOGY REPORT (SQ) ---
EXAM DESCRIPTION: CHEST SINGLE VIEW COMPLETED DATE/TIME: 06/18/2018 2:46 pm REASON FOR STUDY: hypoxia COMPARISON: 05/24/2018 EXAM PARAMETERS: NUMBER OF VIEWS: One view. TECHNIQUE: Single frontal radiographic view of the chest acquired. RADIATION DOSE: NA LIMITATIONS: None. FINDINGS: LUNGS AND PLEURA: No opacities, masses or pneumothorax. No pleural effusion. MEDIASTINUM AND HILAR STRUCTURES: No masses. Contour normal. HEART AND VASCULAR STRUCTURES: Heart normal in size. Normal vasculature. BONES: No acute findings. HARDWARE: Pacemaker defibrillator. OTHER: No other significant finding. IMPRESSION: NO ACUTE RADIOGRAPHIC FINDING IN THE CHEST. TECHNICAL DOCUMENTATION: JOB ID: [id number] [employer]- All Rights Reserved Reading location - IP/workstation name: [email or web address]
[2018-06-18 15:23] LABS: ABSOLUTE EOSINOPHILS # (AUTO) 0.2 10^3/uL (0.0-0.6); ABSOLUTE MONOCYTES (AUTO) 0.6 10^3/uL (0.1-1.4); BASOPHILS % (AUTO) 0.6 % (0-2); EOSINOPHILS % (AUTO) 2.6 % (0-6); HEMATOCRIT 30.8 % (37.9-51.0); HEMOGLOBIN 10.2 g/dL (13.5-17.0); LYMPHOCYTES % (AUTO) 15.3 % (13-45); MEAN CORPUSCULAR HEMOGLOBIN 28.8 pg (27.0-33.4); MEAN CORPUSCULAR VOLUME 87 fl (80-97); MONOCYTES % (AUTO) 8.4 % (3-13); PLATELET COUNT 266 10^3/uL (150-450); RED BLOOD COUNT 3.53 10^6/uL (4.35-5.55); RED CELL DISTRIBUTION WIDTH 14.3 % (11.5-14.0); SEGMENTED NEUTROPHILS % (AUTO) 73.1 % (42-78); TOTAL CELLS COUNTED % (AUTO) 100 %; WHITE BLOOD COUNT 6.8 10^3/uL (4.0-10.5)
[2018-06-18 15:35] LABS: APPEARANCE,URINE CLEAR; BILIRUBIN,URINE NEGATIVE (NEGATIVE); COLOR,URINE STRAW; GLUCOSE, URINE NEGATIVE (NEGATIVE); KETONES,URINE NEGATIVE (NEGATIVE); LEUKOCYTE ESTERASE,URINE NEGATIVE (NEGATIVE); NITRITE,URINE NEGATIVE (NEGATIVE); PROTEIN,URINE NEGATIVE (NEGATIVE); URINE SPECIFIC GRAVITY 1.009; UROBILINOGEN,URINE NEGATIVE mg/dL (<2.0)
[2018-06-18 15:39] LABS: ANION GAP 7 (5-19); BLOOD UREA NITROGEN 23 mg/dL (7-20); CALCIUM 9.1 mg/dL (8.4-10.2); CARBON DIOXIDE 31 mmol/L (22-30); CHLORIDE 101 mmol/L (98-107); GLUCOSE 106 mg/dL (75-110); POTASSIUM 4.1 mmol/L (3.6-5.0); SODIUM 139.4 mmol/L (137-145)
[2018-06-18 23:26] VITALS: BP 113/76
== END 2018-06-18 22:00 ==
LOC: ER 13:30
DX: F03.91 Unspecified dementia, unspecified severity, with behavioral disturbance (principal); I10 Essential (primary) hypertension; J45.909 Unspecified asthma, uncomplicated
CPT/HCPCS: 36415; 70450; 71045; 80048; 81001; 85025; 99285

== ENCOUNTER 2018-08-14 07:50 | Inpatient (IN) | payer MEDICARE, OTHER ==
[2018-08-14] MEDS ORDERED: CEFTRIAXONE INJ 1000 MG VIAL IV ONE (08:00)
[2018-08-14] MEDS ORDERED: AZITHROMYCIN INJ 500 MG VIAL IV ONE (08:00)
--- NOTE | 2018-08-14 08:06 | ER Document Report ---
ED General - General Chief Complaint: Respiratory Distress Stated Complaint: DIFFICULTY BREATHING Time Seen by Provider: 08/14/18 07:59 Primary Care Provider: DAMIR SIFUENTES MD [NO LOCAL MD] - Follow up as needed TRAVEL OUTSIDE OF THE [place] IN LAST 30 DAYS: No - HPI Notes: Patient is a 87-year-old male that presents to the emergency department for chief complaint of respiratory distress. Patient presents from [facility] nursing [facility] for respiratory distress. EMS states that staff noticed he had an increased work of breathing last night. Today they obtained an x-ray and states that he had a "kyler out lung". Patient did have a fever of 101 at the nursing facility and was given Tylenol prior to transportation to the emergency room. Patient presented on BiPAP with significant increased work of breathing and is not able to provide any HPI. EMS states patient was 90% on room air when they placed him on BiPAP for increased work of breathing. Past Medical History: Hypertension Past Surgical History: Reviewed in chart Social History: No tobacco or alcohol use Family History: Reviewed and noncontributory for presenting illness Allergies: Reviewed, see documented allergy list. REVIEW OF SYSTEMS: Unable to obtain because of acuity of condition PHYSICAL EXAMINATION: Vital signs reviewed, nursing noted reviewed. GENERAL: Well-appearing, well-nourished and in no acute distress. HEAD: Atraumatic, normocephalic. EYES: Eyes appear normal, extraocular movements intact, sclera anicteric, conjunctiva are normal. ENT: nares patent, oropharynx clear without exudates. Dry mucous membranes. NECK: Normal range of motion, supple without lymphadenopathy LUNGS: Breath sounds diminished with bilateral rhonchi. Tachypneic. Moderate accessory muscle use HEART: Tachycardic rate and regular rhythm without murmurs, +2/4 bilateral radial and DP pulses ABDOMEN: Soft, nontender, normoactive bowel sounds. No rebound, guarding, or rigidity. No masses appreciated. EXTREMITIES: Nontender, good range of motion, no pitting or edema. NEUROLOGICAL: No focal neurological deficits. Moves all extremities spontaneously Motor and sensory grossly intact on exam. SKIN: Warm, Dry, normal turgor, no rashes or lesions noted on exposed skin - Related Data Allergies/Adverse Reactions: No Known Allergies Allergy (Verified 05/24/18 11:15) Past Medical History - Social History Smoking Status: Never Smoker Family History: Reviewed & Not Pertinent - Past Medical History Cardiac Medical History: Reports: Hx Hypertension Denies: Hx Atrial Fibrillation, Hx Congestive Heart Failure, Hx Coronary Artery Disease, Hx Heart Attack, Hx Hypercholesterolemia, Hx Peripheral Vascular Disease, Hx Pulmonary Embolism, Hx Heart Murmur Pulmonary Medical History: Reports: Hx Asthma - Asthamatic bronchitis , Hx Bronchitis, Hx Pneumonia Denies: Hx COPD, Hx Respiratory Failure, Hx Sleep Apnea, Hx Tuberculosis Neurological Medical History: Denies: Hx Cerebrovascular Accident, Hx Seizures Renal/ Medical History: Denies: Hx Peritoneal Dialysis Malignancy Medical History: Denies Hx Lung Cancer Musculoskeletal Medical History: Denies Hx Arthritis, Denies Hx Fibromyalgia, Denies Hx Multiple Sclerosis, Denies Hx Muscular Dystrophy Psychiatric Medical History: Reports: Hx Dementia Traumatic Medical History: Reports: Hx Fractures - Curent L tibia and R elbow fx Past Surgical History: Reports: Hx Cardiac Catheterization - pacemaker, Hx Cardiac Surgery - pacemaker, Hx Orthopedic Surgery - Recent ORIF right elbow left tibia, Hx Pacemaker - 2017. Denies: Hx Appendectomy, Hx Bowel Surgery, Hx Cholecystectomy, Hx Coronary Artery Bypass Graft, Hx Gastric Bypass Surgery, Hx Herniorrhaphy, Hx Tonsillectomy Physical Exam - Vital signs Vitals: Resp Pulse Ox 22 H 100 08/14/18 07:56 08/14/18 07:56 Course - Re-evaluation Re-evalutation: 08/14/18 08:04 Patient presented to the emergency room with significant increased work of breathing on BiPAP by EMS. He will remain on BiPAP to assist in his respiratory distress. Patient has coarse lung sounds bilaterally. He has no reported history of CHF but does have Lasix listed on his home medications. Patient was febrile and received Tylenol prior to transportation. Patient was given R ocephin and azithromycin for presumed pneumonia given his clinical presentation and fever. Blood cultures have been ordered. Patient is currently alert and following commands but not speaking because of his increased work of breathing. He does have DNR papers at bedside. He is not currently requiring intubation. 08/14/18 09:05 On reevaluation patient's respiratory status has significantly improved. He is still using mild accessory muscles and has a coarse cough but his tachypnea has decreased. Patient will be ordered DuoNeb for his coughing. Patient is febrile with WBC count greater than 12 meeting sepsis criteria. He has a normal lactate and stable blood pressure and is not in shock. Patient was given Lasix at custodial facility prior to coming to the emergency room. He will be ordered a small 500 mL fluid bolus but aggressive hydration not indicated given his daily Lasix requirements and stable blood pressure. Patient's x-ray was read as unremarkable however compared to prior there appears to be possible right lower lobe pneumonia today which correlates with his clinical picture. Patient will be admitted to the hospital for further management. Care discussed with Dr. Clay and Mirella Barboza HAND FLESHER who accepted admission Laboratory 08/14/18 08/14/18 08/14/18 07:55 07:55 07:55 WBC 12.2 H RBC 3.69 L Hgb 10.5 L Hct 32.0 L MCV 87 MCH 28.4 MCHC 32.9 RDW 17.7 H Plt Count 238 Seg Neutrophils % 84.5 H Lymphocytes % 6.2 L Monocytes % 8.2 Eosinophils % 0.9 Basophils % 0.2 Absolute Neutrophils 10.3 H Absolute Lymphocytes 0.8 Absolute Monocytes 1.0 Absolute Eosinophils 0.1 Absolute Basophils 0.0 PT 14.5 INR 1.13 Carbonic Acid HCO3/H2CO3 Ratio ABG pH ABG pCO2 ABG pO2 ABG HCO3 ABG Total CO2 ABG O2 Saturation ABG Base Excess FiO2 Sodium 142.5 Potassium 4.8 Chloride 104 Carbon Dioxide 28 Anion Gap 11 BUN 40 H Creatinine 1.71 H Est GFR ( Amer) 46 L Est GFR (Non-Af Amer) 38 L Glucose 125 H Lactic Acid Calcium 9.4 Total Bilirubin 0.6 Direct Bilirubin 0.3 Neonat Total Bilirubin Not Reportable Neonat Direct Bilirubin Not Reportable Neonat Indirect Bili Not Reportable AST 22 ALT 15 L Alkaline Phosphatase 112 Troponin I Total Protein 8.2 Albumin 4.2 08/14/18 08/14/18 08/14/18 07:55 07:55 07:55 WBC RBC Hgb Hct MCV MCH MCHC RDW Plt Count Seg Neutrophils % Lymphocytes % Monocytes % Eosinophils % Basophils % Absolute Neutrophils Absolute Lymphocytes Absolute Monocytes Absolute Eosinophils Absolute Basophils PT INR Carbonic Acid Cancelled HCO3/H2CO3 Ratio Cancelled ABG pH Cancelled ABG pCO2 Cancelled ABG pO2 Cancelled ABG HCO3 Cancelled ABG Total CO2 Cancelled ABG O2 Saturation Cancelled ABG Base Excess Cancelled FiO2 Cancelled Sodium Potassium Chloride Carbon Dioxide Anion Gap BUN Creatinine Est GFR ( Amer) Est GFR (Non-Af Amer) Glucose Lactic Acid 1.8 Calcium Total Bilirubin Direct Bilirubin Neonat Total Bilirubin Neonat Direct Bilirubin Neonat Indirect Bili AST ALT Alkaline Phosphatase Troponin I 0.016 Total Protein Albumin 08/14/18 08:44 WBC RBC Hgb Hct MCV MCH MCHC RDW Plt Count Seg Neutrophils % Lymphocytes % Monocytes % Eosinophils % Basophils % Absolute Neutrophils Absolute Lymphocytes Absolute Monocytes Absolute Eosinophils Absolute Basophils PT INR Carbonic Acid 1.32 HCO3/H2CO3 Ratio 19:1 ABG pH 7.39 ABG pCO2 43.7 ABG pO2 122.1 H ABG HCO3 25.6 H ABG Total CO2 27.0 ABG O2 Saturation 98.4 H ABG Base Excess 0.4 FiO2 35% Sodium Potassium Chloride Carbon Dioxide Anion Gap BUN Creatinine Est GFR ( Amer) Est GFR (Non-Af Amer) Glucose Lactic Acid Calcium Total Bilirubin Direct Bilirubin Neonat Total Bilirubin Neonat Direct Bilirubin Neonat Indirect Bili AST ALT Alkaline Phosphatase Troponin I Total Protein Albumin Chest X-Ray 08/14/18 07:59 IMPRESSION: Cardiomegaly without acute abnormality of the lungs in AP projection. 08/14/18 09:20 Patient's ABG shows no hypercapnia or acid-base disturbance. Since his work of breathing has improved he was taken off of BiPAP. Patient is still tachypneic with mild accessory muscle use but is not in severe respiratory distress. He is more comfortable with nasal cannula oxygen. Patient's current O2 on nasal cannula is 100%. - Vital Signs Vital signs: Temp Pulse Resp BP Pulse Ox 17 112/65 100 08/14/18 08:46 08/14/18 08:46 08/14/18 08:46 - Laboratory Result Diagrams: 08/14/18 07:55 08/14/18 07:55 Laboratory results interpreted by me: 08/14/18 08/14/18 08/14/18 07:55 07:55 08:27 WBC 12.2 H RBC 3.69 L Hgb 10.5 L Hct 32.0 L RDW 17.7 H Seg Neutrophils % 84.5 H Lymphocytes % 6.2 L Absolute Neutrophils 10.3 H ABG pO2 ABG HCO3 ABG O2 Saturation BUN 40 H Creatinine 1.71 H Est GFR ( Amer) 46 L Est GFR (Non-Af Amer) 38 L Glucose 125 H ALT 15 L Ur Leukocyte Esterase SMALL H 08/14/18 08:44 WBC RBC Hgb Hct RDW Seg Neutrophils % Lymphocytes % Absolute Neutrophils ABG pO2 122.1 H ABG HCO3 25.6 H ABG O2 Saturation 98.4 H BUN Creatinine Est GFR ( Amer) Est GFR (Non-Af Amer) Glucose ALT Ur Leukocyte Esterase - EKG Interpretation by Me Additional EKG results interpreted by me: 08/14/18 08:22 Interpreted by myself 0819: Normal sinus rhythm, rate 88, normal axis, no ectopy, no STEMI Critical Care Note - Critical Care Note Total time excluding time spent on procedures (mins): 41 Comments: Critical care time 41 exclusive from separate billable procedures for a patient requiring complex medical decision making, and high potential for clinical deterioration. Time spent obtaining history from patient or surrogate, discussi ons with consultants, development of treatment plan with patient or surrogate, evaluation of patient's response to treatment, examination of patient, ordering and performing treatments and interventions, ordering and review of laboratory studies, re-evaluation of patient's condition, ordering and review of radiographic studies and review of old charts Discharge - Discharge Clinical Impression: Respiratory distress Right lower lobe pneumonia Qualifiers: Pneumonia type: due to unspecified organism Qualified Code(s): J18.1 - Lobar pneumonia, unspecified organism Sepsis Qualifiers: Sepsis type: sepsis due to unspecified organism Qualified Code(s): A41.9 - Sepsis, unspecified organism Condition: Stable Disposition: ADMITTED INPATIENT Admitting Provider: Danna (Hospitalist) Unit Admitted: IMCU Referrals: DAMIR SIFUENTES MD [NO LOCAL MD] - Follow up as needed
[2018-08-14 08:21] LABS: ABSOLUTE EOSINOPHILS # (AUTO) 0.1 10^3/uL (0.0-0.6); ABSOLUTE LYMPHOCYTES (AUTO) 0.8 10^3/uL (0.5-4.7); ABSOLUTE NEUT (AUTO) 10.3 10^3/uL (1.7-8.2); BASOPHILS % (AUTO) 0.2 % (0-2); EOSINOPHILS % (AUTO) 0.9 % (0-6); HEMOGLOBIN 10.5 g/dL (13.5-17.0); LYMPHOCYTES % (AUTO) 6.2 % (13-45); MEAN CORPUSCULAR HEMOGLOBIN 28.4 pg (27.0-33.4); MEAN CORPUSCULAR HGB CONC 32.9 g/dL (32.0-36.0); MEAN CORPUSCULAR VOLUME 87 fl (80-97); MONOCYTES % (AUTO) 8.2 % (3-13); PLATELET COUNT 238 10^3/uL (150-450); RED BLOOD COUNT 3.69 10^6/uL (4.35-5.55); RED CELL DISTRIBUTION WIDTH 17.7 % (11.5-14.0); SEGMENTED NEUTROPHILS % (AUTO) 84.5 % (42-78); TOTAL CELLS COUNTED % (AUTO) 100 %; WHITE BLOOD COUNT 12.2 10^3/uL (4.0-10.5)
[2018-08-14 08:27] LABS: INTERNATIONAL RATION (INR) 1.13; PROTHROMBIN TIME 14.5 SEC (11.4-15.4)
[2018-08-14 08:39] LABS: ALBUMIN 4.2 g/dL (3.5-5.0); ALKALINE PHOSPHATASE 112 U/L (38-126); ANION GAP 11 (5-19); ASPARTATE AMINO TRANSFERASE 22 U/L (17-59); BILIRUBIN,DIRECT 0.3 mg/dL (0.0-0.4); BILIRUBIN,TOTAL 0.6 mg/dL (0.2-1.3); BLOOD UREA NITROGEN 40 mg/dL (7-20); CALCIUM 9.4 mg/dL (8.4-10.2); CARBON DIOXIDE 28 mmol/L (22-30); CHLORIDE 104 mmol/L (98-107); GLUCOSE 125 mg/dL (75-110); POTASSIUM 4.8 mmol/L (3.6-5.0); SODIUM 142.5 mmol/L (137-145); TOTAL PROTEIN 8.2 g/dL (6.3-8.2)
[2018-08-14 08:42] LABS: ALANINE AMINOTRANSFERASE 15 U/L (21-72)
--- NOTE | 2018-08-14 08:49 | RADIOLOGY REPORT (SQ) ---
EXAM DESCRIPTION: CHEST SINGLE VIEW COMPLETED DATE/TIME: 08/14/2018 8:33 am REASON FOR STUDY: short of breath COMPARISON: 06/18/2018 EXAM PARAMETERS: NUMBER OF VIEWS: One view. TECHNIQUE: Single frontal radiographic view of the chest acquired. RADIATION DOSE: NA LIMITATIONS: None. FINDINGS: LUNGS AND PLEURA: No opacities, masses or pneumothorax. No pleural effusion. MEDIASTINUM AND HILAR STRUCTURES: No masses. Contour normal. HEART AND VASCULAR STRUCTURES: Cardiomegaly with left chest multi lead pacer. BONES: No acute findings. HARDWARE: None in the chest. OTHER: No other significant finding. IMPRESSION: Cardiomegaly without acute abnormality of the lungs in AP projection. TECHNICAL DOCUMENTATION: JOB ID: [id number] [employer]- All Rights Reserved Reading location - IP/workstation name: [email or web address]
[2018-08-14 08:56] LABS: ARTERIAL BLOOD BASE EXCESS 0.4 mmol/L; ARTERIAL BLOOD H2CO3 1.32 mmol/L (1.05-1.35); ARTERIAL BLOOD HCO3 25.6 mmol/L (20-24); ARTERIAL BLOOD O2 SATURATION 98.4 % (94-98); ARTERIAL BLOOD PCO2 43.7 mmHg (35-45); ARTERIAL BLOOD PH 7.39 (7.35-7.45); ARTERIAL BLOOD PO2 122.1 mmHg (80-100)
[2018-08-14 08:57] LABS: ARTERIAL BLOOD FIO2 35%
[2018-08-14] MEDS ORDERED: IPRATROPIUM/ALBUTEROL 0.5-2.5 MG/3 ML AMPUL NEB ONE (09:05)
[2018-08-14] MEDS ORDERED: NORMAL SALINE 500 ML IV ONE (09:08)
[2018-08-14 09:09] LABS: APPEARANCE,URINE SLIGHTLY-CLOUDY; BILIRUBIN,URINE NEGATIVE (NEGATIVE); COLOR,URINE YELLOW; GLUCOSE, URINE NEGATIVE (NEGATIVE); KETONES,URINE NEGATIVE (NEGATIVE); LEUKOCYTE ESTERASE,URINE SMALL (NEGATIVE); NITRITE,URINE NEGATIVE (NEGATIVE); PROTEIN,URINE NEGATIVE (NEGATIVE); URINE SPECIFIC GRAVITY 1.014; UROBILINOGEN,URINE NEGATIVE mg/dL (<2.0)
[2018-08-14] MEDS ORDERED: GUAIFENESIN SYRP 200 MG/10 ML UDC PO PRN (10:10)
[2018-08-14] MEDS ORDERED: ALBUTEROL SULFATE 0.083% NEB 2.5 MG/3 ML AMPUL NEB PRN (10:10)
[2018-08-14] MEDS ORDERED: VANCOMYCIN HCL 0 MG in DEXTROSE 5%-WATER 250 ML IV NR (10:15)
--- NOTE | 2018-08-14 10:55 | PDOC H&P ---
History of Present Illness Admission Date/PCP: 08/14/18 09:36 CRISTINA BOWERS PA-C Patient complains of: difficulty breathing History of Present Illness: JENNIFER DUONG is a 87 year old male with a past medical history of dementia, hypertension, hyperlipidemia, dysphasia, iron deficiency anemia, and pacemaker who presented from [facility] with complaint of acute respiratory distress. Per ED provider, patient first began having difficulty breathing last night and a chest x-ray at that facility reportedly showed "white out." Per ED provider the patient was provided nebulizer treatments and Lasix overnight but as he continued to have difficulty breathing EMS was called this morning. He arrived tachypneic with accessory muscle use while on BiPAP support after receiving nebulizer treatments by EMS. Further evaluation in the emergency department shows leukocytosis (WBCs 12.2), baseline anemia (hemoglobin 10.5), unremarkable ABG, MARIO with creatinine of 1.71 (up from baseline of 1.10), normal troponin, and benign urinalysis. EKG demonstrated NSR without acute findings, chest x-ray was read as cardiomegaly without acute findings. However, I agree with Dr. Camargo that he does appear to have a right lower lobe consolidation as compared to previous CXR. He is noted to have a temperature of 100.9, was tachypneic (RR 24) on arrival, was mildly tachycardic (HR 97), but with a normal lactic acid. At the time of my exam was resting comfortably on room air; he was sleeping but woke easily after saying his name. He tells me that he is feeling fine at the moment and denies any pain or discomfort. He does quickly fall back to sleep. He is referred to the hospitalist service for admission and management of a right lower lobe pneumonia with associated respiratory distress. Past Medical History Cardiac Medical History: Reports: Hyperlipidema, Hypertension Pulmonary Medical History: Reports: Bronchitis, Pneumonia Denies: Chronic Obstructive Pulmonary Disease (COPD) Neurological Medical History: Denies: Ischemic CVA, Seizures Endocrine Medical History: Reports: None Renal/ Medical History: Reports: None Malignancy Medical History: Reports: None GI Medical History: Reports: None Musculoskeltal Medical History: Denies: Arthritis Skin Medical History: Reports: None Psychiatric Medical History: Reports: Dementia Hematology: Reports: Anemia - Iron Deficiency Infectious Medical History: Reports: None Past Surgical History Past Surgical History: Reports: Orthopedic Surgery - ORIF right elbow & left tibia, Pacemaker - 2017 Social History Information Source: Emergency Med Personnel, [facility] Records, Outside Facility Records Lives with: [facility] Smoking Status: Never Smoker Frequency of Alcohol Use: None Hx Recreational Drug Use: No Drugs: None Hx Prescription Drug Abuse: No - Advance Directive Resuscitation Status: Do Not Resuscitate Family History Family History: Unavailable in record; unable to obtain secondary to baseline mental status (dementia) Parental Family History Reviewed: No Children Family History Reviewed: No Sibling(s) Family History Reviewed.: No Medication/Allergy Home Medications: Amlodipine Besylate [Norvasc 5 mg Tablet] 5 mg PO DAILY 05/24/18 Divalproex Sodium [Depakote] 125 mg PO BID 05/24/18 Docusate Sodium [Colace 100 mg Capsule] 100 mg PO DAILY 05/24/18 Furosemide [Lasix 20 mg Tablet] 20 mg PO DAILYP PRN 05/24/18 Aspirin [Ecotrin 81 mg EC Tablet] 81 mg PO DAILY 30 Days #30 tabec 05/28/18 Hydrocodone/Acetaminophen [[place] 5-325 mg Tablet] 1 tab PO Q8HP PRN #9 tablet 05/28/18 Allergies/Adverse Reactions: No Known Allergies Allergy (Verified 05/24/18 11:15) Review of Systems Constitutional: PRESENT: fatigue. ABSENT: chills, fever(s), headache(s), weight gain, weight loss Eyes: ABSENT: visual disturbances Ears: ABSENT: hearing changes Cardiovascular: ABSENT: chest pain, dyspnea on exertion, edema, orthropnea, palpitations Respiratory: PRESENT: cough, dyspnea, sputum. ABSENT: hemoptysis Gastrointestinal: ABSENT: abdominal pain, constipation, diarrhea, hematemesis, hematochezia, nausea, vomiting Genitourinary: ABSENT: dysuria, hematuria Musculoskeletal: ABSENT: joint swelling Integumentary: ABSENT: rash, wounds Neurological: ABSENT: abnormal gait, abnormal speech, confusion, dizziness, focal weakness, syncope Psychiatric: ABSENT: anxiety, depression, homidical ideation, suicidal ideation Endocrine: ABSENT: cold intolerance, heat intolerance, polydipsia, polyuria Hematologic/Lymphatic: ABSENT: easy bleeding, easy bruising Physical Exam Vital Signs: Temp Pulse Resp BP Pulse Ox 20 121/76 97 08/14/18 10:00 08/14/18 10:00 08/14/18 09:59 Intake & Output 08/13/18 08/14/18 08/15/18 06:59 06:59 06:59 Intake Total 500 Balance 500 Weight 67.3 kg General appearance: PRESENT: no acute distress, well-developed, well-nourished, other - Acutely ill-appearing Head exam: PRESENT: atraumatic, normocephalic Eye exam: PRESENT: conjunctiva pink, EOMI, PERRLA. ABSENT: scleral icterus Ear exam: PRESENT: normal external ear exam Mouth exam: PRESENT: dry mucosa, tongue midline Neck exam: ABSENT: carotid bruit, JVD, lymphadenopathy, thyromegaly Respiratory exam: PRESENT: decreased breath sounds - Bibasilar, rhonchi - R>L, symmetrical, unlabored. ABSENT: rales, wheezes Cardiovascular exam: PRESENT: RRR, +S1, +S2. ABSENT: diastolic murmur, rubs, systolic murmur Pulses: PRESENT: normal dorsalis pedis pul Vascular exam: PRESENT: normal capillary refill GI/Abdominal exam: PRESENT: normal bowel sounds, soft. ABSENT: distended, guarding, mass, organolmegaly, rebound, tenderness Rectal exam: PRESENT: deferred Extremities exam: PRESENT: full ROM. ABSENT: calf tenderness, clubbing, pedal edema Neurological exam: PRESENT: alert, awake, oriented to person, oriented to place, CN II-XII grossly intact, other - Fatigued; arousable. ABSENT: motor sensory deficit Psychiatric exam: PRESENT: appropriate affect, normal mood. ABSENT: homicidal ideation, suicidal ideation Skin exam: PRESENT: dry, intact, warm. ABSENT: cyanosis, rash Results Laboratory Results: 08/14/18 07:55 08/14/18 07:55 08/14/18 08/14/18 08/14/18 07:55 07:55 07:55 WBC 12.2 H RBC 3.69 L Hgb 10.5 L Hct 32.0 L MCV 87 MCH 28.4 MCHC 32.9 RDW 17.7 H Plt Count 238 Seg Neutrophils % 84.5 H Lymphocytes % 6.2 L Monocytes % 8.2 Eosinophils % 0.9 Basophils % 0.2 Absolute Neutrophils 10.3 H Absolute Lymphocytes 0.8 Absolute Monocytes 1.0 Absolute Eosinophils 0.1 Absolute Basophils 0.0 Carbonic Acid HCO3/H2CO3 Ratio ABG pH ABG pCO2 ABG pO2 ABG HCO3 ABG O2 Saturation ABG Base Excess FiO2 Sodium 142.5 Potassium 4.8 Chloride 104 Carbon Dioxide 28 Anion Gap 11 BUN 40 H Creatinine 1.71 H Est GFR ( Amer) 46 L Est GFR (Non-Af Amer) 38 L Glucose 125 H Lactic Acid 1.8 Calcium 9.4 Total Bilirubin 0.6 AST 22 ALT 15 L Alkaline Phosphatase 112 Total Protein 8.2 Albumin 4.2 Urine Color Urine Appearance Urine pH Ur Specific [place] Urine Protein Urine Glucose (UA) Urine Ketones Urine Blood Urine Nitrite Ur Leukocyte Esterase Urine WBC (Auto) Urine RBC (Auto) 08/14/18 08/14/18 08/14/18 07:55 08:27 08:44 WBC RBC Hgb Hct MCV MCH MCHC RDW Plt Count Seg Neutrophils % Lymphocytes % Monocytes % Eosinophils % Basophils % Absolute Neutrophils Absolute Lymphocytes Absolute Monocytes Absolute Eosinophils Absolute Basophils Carbonic Acid Cancelled 1.32 HCO3/H2CO3 Ratio Cancelled 19:1 ABG pH Cancelled 7.39 ABG pCO2 Cancelled 43.7 ABG pO2 Cancelled 122.1 H ABG HCO3 Cancelled 25.6 H ABG O2 Saturation Cancelled 98.4 H ABG Base Excess Cancelled 0.4 FiO2 Cancelled 35% Sodium Potassium Chloride Carbon Dioxide Anion Gap BUN Creatinine Est GFR ( Amer) Est GFR (Non-Af Amer) Glucose Lactic Acid Calcium Total Bilirubin AST ALT Alkaline Phosphatase Total Protein Albumin Urine Color YELLOW Urine Appearance SLIGHTLY-CLOUDY Urine pH 5.0 Ur Specific [place] 1.014 Urine Protein NEGATIVE Urine Glucose (UA) NEGATIVE Urine Ketones NEGATIVE Urine Blood NEGATIVE Urine Nitrite NEGATIVE Ur Leukocyte Esterase SMALL H Urine WBC (Auto) 22 Urine RBC (Auto) 1 08/14/18 07:55 Troponin I 0.016 Impressions: Chest X-Ray 08/14/18 07:59 IMPRESSION: Cardiomegaly without acute abnormality of the lungs in AP projection. Assessment and Plan - Diagnosis (1) Right lower lobe pneumonia Qualifiers: Pneumonia type: due to unspecified organism Qualified Code(s): J18.1 - Lobar pneumonia, unspecified organism Is this a current diagnosis for this admission?: Yes Plan: Patient presented with acute respiratory distress (tachypnea, accessory muscle use, tachycardia) and fever Chest x-ray reveals a right lower lobe consolidation. Blood and sputum cultures have been obtained. The patient received 1 dose of IV Rocephin and azithromycin per the ED provider. Patient is admitted to the medical floor and continuous cardiac telemetry. We will provide supplemental oxygen as needed to maintain saturations >90% We will continue scheduled and as needed nebulizer treatments. As the patient is a resident at an SNF; will escalate antibiotics for coverage of a healthcare associated pneumonia. Start IV Levaquin and renally dose vancomycin (dose per pharmacy). Will adjust antibiotics as cultures result. Mucinex twice daily, as needed Robitussin. Chest physiotherapy twice daily. Out of bed for meals. Incentive spirometer and flutter valve to bedside. (2) Sepsis Qualifiers: Sepsis type: sepsis due to unspecified organism Qualified Code(s): A41.9 - Sepsis, unspecified organism Is this a current diagnosis for this admission?: Yes Plan: Secondary to #1. Present on arrival as evidenced by leukocytosis, tachycardia, tachypnea, hypoxia on room air (initially required BiPAP support), and pneumonia evidenced on CXR. Cultures and antibiotic's as above. He has been provided a 500 mL NS bolus by the ED provider; we will continue gentle IV fluid resuscitation. We will treat more aggressively if the patient develops hypotension or other evidence of endorgan damage. (3) HTN (hypertension) Qualifiers: Hypertension type: essential hypertension Qualified Code(s): I10 - Essential (primary) hypertension Is this a current diagnosis for this admission?: Yes Plan: Patient is placed on a cardiac diet. Continue home dose amlodipine. We will hold home dose furosemide as the patient appears dehydrated with MARIO. (4) MARIO (acute kidney injury) Is this a current diagnosis for this admission?: Yes Plan: Multifactorial secondary to dehydration (tachypnea, fever), sepsis, and use of furosemide by SNF prior to arrival. Creatinine on admission elevated to 1.71; up from baseline of 1.16. He is already received a 500 mL NS bolus by the ED provider; we will continue gentle IV fluids. We will avoid nephrotoxic medications as able; pharmacy to dose vancomycin. Daily chemistries. 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 Fall precautions. Supportive care. (6) Respiratory distress Is this a current diagnosis for this admission?: Yes Plan: Resolved; patient is now maintaining oxygen saturations while on room air. Secondary to #1. - Time Time Spent with patient: 35 or more minutes Medications reviewed and adjusted accordingly: Yes Anticipated discharge: SNF Within: within 72 hours - Inpatient Certification Based on my medical assessment, after consideration of the patient's comorbidities, presenting symptoms, or acuity I expect that the services needed warrant INPATIENT care.: Yes I certify that my determination is in accordance with my understanding of Medicare's requirements for reasonable and necessary INPATIENT services [42 CFR 412.3e].: Yes Medical Necessity: Need For IV Fluids, Need for Nebulizer Therapy and Monitoring of Response, Need for IV Antibiotics
[2018-08-14] MEDS ORDERED: VANCOMYCIN HCL 1,500 MG in DEXTROSE 5%-WATER 250 ML IV ONE (11:30)
[2018-08-14] MEDS: NORMAL SALINE 1000 ML 1,000 ML IV PRN ×2 (11:36→22:44)
[2018-08-14] MEDS: HEPARIN SOD (PORCINE) 5,000 UNIT/ML 1 ML SYRINGE SUBCUT SCH ×2 (14:08→22:33)
--- NOTE | 2018-08-14 14:58 | EKG REPORT ---
SEVERITY:- OTHERWISE NORMAL ECG - SINUS RHYTHM LOW VOLTAGE IN FRONTAL LEADS : Confirmed by: Misty Espinosa 14-Aug-2018 14:57:58
[2018-08-14] MEDS: IPRATROPIUM/ALBUTEROL 0.5-2.5 MG/3 ML AMPUL NEB SCH ×2 (16:08→23:43)
[2018-08-14] MEDS: MIRTAZAPINE 15 MG TABLET PO SCH (22:34)
[2018-08-14] MEDS: GUAIFENESIN 600 MG TABLET.SA PO SCH ×2 (22:34→22:41)
[2018-08-14] MEDS: DIVALPROEX SODIUM 125 MG CAP.SPRINK PO SCH (22:40)
[2018-08-15] MEDS: PANTOPRAZOLE SODIUM 40 MG TABLET.DR PO SCH (05:56)
[2018-08-15] MEDS: HEPARIN SOD (PORCINE) 5,000 UNIT/ML 1 ML SYRINGE SUBCUT SCH ×3 (05:57→21:19)
[2018-08-15 07:24] LABS: HEMATOCRIT 27.5 % (37.9-51.0); HEMOGLOBIN 9.1 g/dL (13.5-17.0); MEAN CORPUSCULAR HEMOGLOBIN 28.7 pg (27.0-33.4); MEAN CORPUSCULAR HGB CONC 33.1 g/dL (32.0-36.0); MEAN CORPUSCULAR VOLUME 87 fl (80-97); PLATELET COUNT 178 10^3/uL (150-450); RED BLOOD COUNT 3.18 10^6/uL (4.35-5.55); RED CELL DISTRIBUTION WIDTH 17.8 % (11.5-14.0); WHITE BLOOD COUNT 7.8 10^3/uL (4.0-10.5)
[2018-08-15 07:47] LABS: ANION GAP 6 (5-19); BLOOD UREA NITROGEN 33 mg/dL (7-20); CALCIUM 8.6 mg/dL (8.4-10.2); CARBON DIOXIDE 26 mmol/L (22-30); CHLORIDE 110 mmol/L (98-107); GLUCOSE 88 mg/dL (75-110); POTASSIUM 4.2 mmol/L (3.6-5.0); SODIUM 141.9 mmol/L (137-145)
[2018-08-15] MEDS: IPRATROPIUM/ALBUTEROL 0.5-2.5 MG/3 ML AMPUL NEB SCH ×2 (08:04→16:06)
[2018-08-15] MEDS ORDERED: LEVOFLOXACIN 750 MG/D5W RTU 750 MG/150 ML RTUPB IV SCH (10:00)
[2018-08-15] MEDS: AMLODIPINE BESYLATE 5 MG TABLET PO SCH (10:42)
[2018-08-15] MEDS: GUAIFENESIN 600 MG TABLET.SA PO SCH ×2 (10:42→21:19)
[2018-08-15] MEDS: DIVALPROEX SODIUM 125 MG CAP.SPRINK PO SCH ×2 (10:43→21:19)
[2018-08-15] MEDS: ASPIRIN 81 MG TABLET, CHEWABLE PO SCH (10:43)
[2018-08-15] MEDS ORDERED: VANCOMYCIN HCL 750 MG in DEXTROSE 5%-WATER 250 ML IV SCH (12:00)
[2018-08-15] MEDS: ACETAMINOPHEN 325 MG TABLET PO PRN (17:14)
[2018-08-15] MEDS: NORMAL SALINE 1000 ML 1,000 ML IV PRN (17:14)
--- NOTE | 2018-08-15 19:14 | Progress Note Acknowledgement ---
Progress Note Acknowledgement Progess Note Acknowledgement: I, the undersigned member of the medical staff with appropriate privileges and with supervisory authority over Mirella Barboza, a [facility] practice allied health professional, acknowledge that I have reviewed the progress notes entered on this patient, and in my professional judgment believe that the assessment made and/or any care evidenced was appropriate
--- NOTE | 2018-08-15 19:19 | PDOC PROGRESS REPORT ---
Subjective Progress Note for:: 08/15/18 Reason For Visit: PNEUMONIA Physical Exam Vital Signs: Temp Pulse Resp BP Pulse Ox 98.2 F 79 16 125/86 H 100 08/15/18 16:00 08/15/18 16:06 08/15/18 16:06 08/15/18 16:00 08/15/18 16:06 Intake & Output 08/14/18 08/15/18 08/16/18 06:59 06:59 06:59 Intake Total 1750 1800 Output Total 1120 900 Balance 630 900 Weight 67.2 kg General appearance: PRESENT: no acute distress, cooperative, hard of hearing, well-developed, well-nourished Head exam: PRESENT: atraumatic, normocephalic Eye exam: PRESENT: conjunctiva pink, EOMI, PERRLA. ABSENT: scleral icterus Ear exam: PRESENT: normal external ear exam Mouth exam: PRESENT: moist, tongue midline Teeth exam: PRESENT: poor dentation Neck exam: ABSENT: carotid bruit, JVD, lymphadenopathy, thyromegaly Respiratory exam: PRESENT: rhonchi, symmetrical, unlabored. ABSENT: rales, wheezes Cardiovascular exam: PRESENT: RRR. ABSENT: diastolic murmur, rubs, systolic murmur Pulses: PRESENT: normal dorsalis pedis pul Vascular exam: PRESENT: normal capillary refill GI/Abdominal exam: PRESENT: normal bowel sounds, soft. ABSENT: distended, guarding, mass, organolmegaly, rebound, tenderness Rectal exam: PRESENT: deferred Extremities exam: PRESENT: full ROM. ABSENT: calf tenderness, clubbing, pedal edema Neurological exam: PRESENT: alert, awake, oriented to person, CN II-XII grossly intact, other - At baseline. ABSENT: oriented to place, oriented to time, oriented to situation, motor sensory deficit Psychiatric exam: PRESENT: appropriate affect, normal mood. ABSENT: homicidal ideation, suicidal ideation Skin exam: PRESENT: dry, intact, warm. ABSENT: cyanosis, rash Results Laboratory Results: 08/15/18 06:51 08/15/18 06:51 08/15/18 08/15/18 06:51 06:51 WBC 7.8 RBC 3.18 L Hgb 9.1 L Hct 27.5 L MCV 87 MCH 28.7 MCHC 33.1 RDW 17.8 H Plt Count 178 Sodium 141.9 Potassium 4.2 Chloride 110 H Carbon Dioxide 26 Anion Gap 6 BUN 33 H Creatinine 1.30 H Est GFR ( Amer) > 60 Est GFR (Non-Af Amer) 52 L Glucose 88 Calcium 8.6 08/14/18 08/14/18 07:55 07:55 Troponin I 0.016 NT-Pro-B Natriuret Pep 876 H Impressions: Chest X-Ray 08/14/18 07:59 IMPRESSION: Cardiomegaly without acute abnormality of the lungs in AP projection. Assessment and Plan - Diagnosis (1) Right lower lobe pneumonia Qualifiers: Pneumonia type: due to unspecified organism Qualified Code(s): J18.1 - Lobar pneumonia, unspecified organism Is this a current diagnosis for this admission?: Yes Plan: Improved; patient continues to have rhonchi and a productive cough, but with normal WBCs, afebrile, and maintaining saturations well on room air. Patient presented with acute respiratory distress (tachypnea, accessory muscle use, tachycardia) and fever Chest x-ray reveals a right lower lobe consolidation. Blood have no growth at 24 hours. Sputum cultures growing group B strep and yeast. The patient received 1 dose of IV Rocephin and azithromycin per the ED provider. Patient is admitted to the medical floor and continuous cardiac telemetry. We will provide supplemental oxygen as needed to maintain saturations >90% We will continue scheduled and as needed nebulizer treatments. As the patient is a resident at an SNF; will escalate antibiotics for coverage of a healthcare associated pneumonia. Continue IV Levaquin and renally dose vancomycin (dose per pharmacy). Will adjust antibiotics as cultures result. Mucinex twice daily, as needed Robitussin. Chest physiotherapy twice daily. Out of bed for meals. Incentive spirometer and flutter valve to bedside. (2) Sepsis Qualifiers: Sepsis type: sepsis due to unspecified organism Qualified Code(s): A41.9 - Sepsis, unspecified organism Is this a current diagnosis for this admission?: Yes Plan: Resolved; leukocytosis has resolved, lactic acid is normal, vital signs now stable. Secondary to #1. Present on arrival as evidenced by leukocytosis, tachycardia, tachypnea, hypoxia on room air (initially required BiPAP support), and pneumonia evidenced on CXR. Cultures and antibiotic's as above. Continue gentle IV fluids (3) HTN (hypertension) Qualifiers: Hypertension type: essential hypertension Qualified Code(s): I10 - Essential (primary) hypertension Is this a current diagnosis for this admission?: Yes Plan: Patient is placed on a cardiac diet. Continue home dose amlodipine. We will hold home dose furosemide as the patient appears dehydrated with MARIO. Monitor daily weights. (4) MARIO (acute kidney injury) Is this a current diagnosis for this admission?: Yes Plan: Improved; Cr 1.71-> 1.30. Baseline 1.16 Multifactorial secondary to dehydration (tachypnea, fever), sepsis, and use of furosemide by SNF prior to arrival. We will continue gentle IV fluids. We will avoid nephrotoxic medications as able; pharmacy to dose vancomycin. Daily chemistries. 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 Fall precautions. Supportive care. (6) Respiratory distress Is this a current diagnosis for this admission?: Yes Plan: Resolved; patient is now maintaining oxygen saturations while on room air. Secondary to #1. - Time Time Spent with patient: 15-24 minutes Medications reviewed and adjusted accordingly: Yes Anticipated discharge: SNF - Established patient at [facility] Within: within 48 hours
[2018-08-15] MEDS: MIRTAZAPINE 15 MG TABLET PO SCH (21:19)
[2018-08-15] MEDS ORDERED: LORAZEPAM INJ 2 MG/1 ML VIAL ONE (21:44)
[2018-08-15] MEDS ORDERED: LORAZEPAM INJ 2 MG/1 ML VIAL IV ONE (22:00)
[2018-08-16] MEDS ORDERED: IPRATROPIUM/ALBUTEROL 0.5-2.5 MG/3 ML AMPUL NEB ONE (00:46)
[2018-08-16] MEDS: IPRATROPIUM/ALBUTEROL 0.5-2.5 MG/3 ML AMPUL NEB SCH ×3 (00:47→15:55)
[2018-08-16] MEDS: HEPARIN SOD (PORCINE) 5,000 UNIT/ML 1 ML SYRINGE SUBCUT SCH ×3 (05:30→23:21)
[2018-08-16] MEDS: PANTOPRAZOLE SODIUM 40 MG TABLET.DR PO SCH (05:44)
[2018-08-16 05:50] LABS: HEMATOCRIT 30.8 % (37.9-51.0); HEMOGLOBIN 10.1 g/dL (13.5-17.0); MEAN CORPUSCULAR HEMOGLOBIN 28.3 pg (27.0-33.4); MEAN CORPUSCULAR HGB CONC 32.9 g/dL (32.0-36.0); MEAN CORPUSCULAR VOLUME 86 fl (80-97); RED BLOOD COUNT 3.57 10^6/uL (4.35-5.55); RED CELL DISTRIBUTION WIDTH 17.2 % (11.5-14.0); WHITE BLOOD COUNT 7.8 10^3/uL (4.0-10.5)
[2018-08-16 05:59] LABS: ANION GAP 7 (5-19); BLOOD UREA NITROGEN 24 mg/dL (7-20); CALCIUM 8.8 mg/dL (8.4-10.2); CARBON DIOXIDE 26 mmol/L (22-30); CHLORIDE 109 mmol/L (98-107); GLUCOSE 87 mg/dL (75-110); POTASSIUM 4.1 mmol/L (3.6-5.0); SODIUM 142.1 mmol/L (137-145)
[2018-08-16 07:13] LABS: PLATELET COUNT 191 10^3/uL (150-450)
[2018-08-16] MEDS: NORMAL SALINE 1000 ML 1,000 ML IV PRN ×2 (07:14→16:38)
[2018-08-16] MEDS: ACETAMINOPHEN 325 MG TABLET PO PRN ×2 (08:35→15:10)
[2018-08-16] MEDS ORDERED: LEVOFLOXACIN 750 MG TABLET PO SCH (10:00)
[2018-08-16] MEDS: DIVALPROEX SODIUM 125 MG CAP.SPRINK PO SCH ×2 (10:14→23:34)
[2018-08-16] MEDS: AMLODIPINE BESYLATE 5 MG TABLET PO SCH (10:14)
[2018-08-16] MEDS: ASPIRIN 81 MG TABLET, CHEWABLE PO SCH (10:14)
[2018-08-16] MEDS: GUAIFENESIN 600 MG TABLET.SA PO SCH ×2 (10:14→23:33)
[2018-08-16] MEDS ORDERED: VANCOMYCIN HCL 1,000 MG in DEXTROSE 5%-WATER 250 ML IV SCH (12:00)
[2018-08-16] MEDS ORDERED: HALOPERIDOL LACTATE INJ 5 MG/1 ML VIAL IV ONE (16:00)
[2018-08-16] MEDS ORDERED: HYDROCODONE/ACETAMINOPHEN 5-325 MG TABLET PO PRN (16:53)
[2018-08-16] MEDS ORDERED: LORAZEPAM 0.5 MG TABLET PO PRN (16:53)
[2018-08-16] MEDS ORDERED: LORAZEPAM INJ 2 MG/1 ML VIAL IV ONE (16:55)
--- NOTE | 2018-08-16 17:36 | PDOC PROGRESS REPORT ---
Subjective Progress Note for:: 08/16/18 Subjective:: JENNIFER DUONG is a 87 year old male with a past medical history of dementia, hypertension, hyperlipidemia, dysphasia, iron deficiency anemia, and pacemaker who was admitted 08/14/18 for RLL PNA. Patient was seen on morning rounds. He was found resting in bed comfortably on room air. Pulse ox was checked and he was maintaining saturations of 97% with HR 76 on RA. He is noted to be confused; mumbling incoherently, not answering questions, and fidgeting with linens. Per nursing, patient has displayed behavior all day; friends/family visited earlier today and confirmed this to be his baseline behavior. ROS is limited secondary to baseline mental status. Patient appears comfortable and is not noted to be in any acute distress at this time. Reason For Visit: PNEUMONIA Physical Exam Vital Signs: Temp Pulse Resp BP Pulse Ox 98.0 F 80 18 135/90 H 94 08/16/18 07:34 08/16/18 15:55 08/16/18 15:55 08/16/18 11:39 08/16/18 15:55 Intake & Output 08/15/18 08/16/18 08/17/18 06:59 06:59 06:59 Intake Total 1750 2120 1070 Output Total 1120 1750 Balance 507 298 0918 Weight 67.2 kg 67 kg General appearance: PRESENT: no acute distress, hard of hearing, well-developed, well-nourished Head exam: PRESENT: atraumatic, normocephalic Eye exam: PRESENT: conjunctiva pink, EOMI, PERRLA. ABSENT: scleral icterus Mouth exam: PRESENT: moist, tongue midline Teeth exam: PRESENT: poor dentation Neck exam: ABSENT: carotid bruit, JVD, lymphadenopathy, thyromegaly Respiratory exam: PRESENT: clear to auscultation philip, symmetrical, unlabored. ABSENT: rales, rhonchi, wheezes Cardiovascular exam: PRESENT: RRR, +S1, +S2. ABSENT: diastolic murmur, rubs, systolic murmur Pulses: PRESENT: normal dorsalis pedis pul Vascular exam: PRESENT: normal capillary refill GI/Abdominal exam: PRESENT: normal bowel sounds, soft. ABSENT: distended, guarding, mass, organolmegaly, rebound, tenderness Rectal exam: PRESENT: deferred Extremities exam: PRESENT: full ROM. ABSENT: calf tenderness, clubbing, pedal edema Neurological exam: PRESENT: alert, awake, CN II-XII grossly intact. ABSENT: oriented to person, oriented to place, oriented to time, oriented to situation, motor sensory deficit Psychiatric exam: PRESENT: appropriate affect, normal mood. ABSENT: homicidal ideation, suicidal ideation Skin exam: PRESENT: dry, intact, warm. ABSENT: cyanosis, rash Results Laboratory Results: 08/16/18 05:26 08/16/18 05:26 08/16/18 08/16/18 05:26 05:26 WBC 7.8 RBC 3.57 L Hgb 10.1 L Hct 30.8 L MCV 86 MCH 28.3 MCHC 32.9 RDW 17.2 H Plt Count 191 Sodium 142.1 Potassium 4.1 Chloride 109 H Carbon Dioxide 26 Anion Gap 7 BUN 24 H Creatinine 1.09 Est GFR ( Amer) > 60 Est GFR (Non-Af Amer) > 60 Glucose 87 Calcium 8.8 08/14/18 08:27 Catheterized Urine Urine Culture - Final Enterococcus Faecalis(Group D) 08/14/18 08/14/18 07:55 07:55 Troponin I 0.016 NT-Pro-B Natriuret Pep 876 H Impressions: Chest X-Ray 08/14/18 07:59 IMPRESSION: Cardiomegaly without acute abnormality of the lungs in AP projection. Assessment and Plan - Diagnosis (1) Right lower lobe pneumonia Qualifiers: Pneumonia type: due to unspecified organism Qualified Code(s): J18.1 - Lobar pneumonia, unspecified organism Is this a current diagnosis for this admission?: Yes Plan: Improved; normal WBCs, afebrile, and maintaining saturations well on room air. Chest x-ray reveals a right lower lobe consolidation. Blood have no growth at 48 hours. Sputum cultures growing group B strep and yeast. The patient received 1 dose of IV Rocephin and azithromycin per the ED provider. Patient is admitted to the medical floor and continuous cardiac telemetry. We will provide supplemental oxygen as needed to maintain saturations >90% We will continue scheduled and as needed nebulizer treatments. AHe was empirically placed on IV Levaquin and renally dose vancomycin (dose per pharmacy). Have transitioned to p.o. Augmentin for completion of therapy. Mucinex twice daily, as needed Robitussin. Chest physiotherapy twice daily. Out of bed for meals. Incentive spirometer and flutter valve to bedside. (2) Sepsis Qualifiers: Sepsis type: sepsis due to unspecified organism Qualified Code(s): A41.9 - Sepsis, unspecified organism Is this a current diagnosis for this admission?: Yes Plan: Resolved; leukocytosis has resolved, lactic acid is normal, vital signs now stable. Secondary to #1. Present on arrival as evidenced by leukocytosis, tachycardia, tachypnea, hypoxia on room air (initially required BiPAP support), and pneumonia evidenced on CXR. Cultures and antibiotic's as above. Continue gentle IV fluids (3) HTN (hypertension) Qualifiers: Hypertension type: essential hypertension Qualified Code(s): I10 - Essential (primary) hypertension Is this a current diagnosis for this admission?: Yes Plan: Patient is placed on a cardiac diet. Continue home dose amlodipine. We will hold home dose furosemide as the patient appears dehydrated with MARIO. IVF for MARIO stopped today; consider resuming home dose lasix tomorrow. Monitor daily weights. (4) MARIO (acute kidney injury) Is this a current diagnosis for this admission?: Yes Plan: Resolved; Cr 1.71-> 1.30-> 1.09. Baseline 1.16 Multifactorial secondary to dehydration (tachypnea, fever), sepsis, and use of furosemide by SNF prior to arrival. Stop IVF today; encourage p.o. fluids. Continue holding Lasix. We will avoid nephrotoxic medications as able Daily chemistries. 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 Increase Depakote. Resume home dose Ativan Fall precautions. Supportive care. (6) Respiratory distress Is this a current diagnosis for this admission?: Yes Plan: Resolved; patient is now maintaining oxygen saturations while on room air. Secondary to #1. - Time Time Spent with patient: 25-34 minutes Medications reviewed and adjusted accordingly: Yes Anticipated discharge: SNF - LTC resident at [facility] Within: within 24 hours
[2018-08-16] MEDS: AMOXICILLIN TR/POT CLAVULANATE 500-125 MG TAB PO SCH (23:33)
[2018-08-16] MEDS: MIRTAZAPINE 15 MG TABLET PO SCH (23:33)
[2018-08-17] MEDS: IPRATROPIUM/ALBUTEROL 0.5-2.5 MG/3 ML AMPUL NEB SCH ×3 (00:09→15:46)
[2018-08-17] MEDS ORDERED: HYDRALAZINE HCL INJ/PF 20 MG/1 ML SDV IV PRN (01:14)
[2018-08-17 05:55] LABS: HEMATOCRIT 28.2 % (37.9-51.0); HEMOGLOBIN 9.3 g/dL (13.5-17.0); MEAN CORPUSCULAR HEMOGLOBIN 28.5 pg (27.0-33.4); MEAN CORPUSCULAR HGB CONC 33.1 g/dL (32.0-36.0); MEAN CORPUSCULAR VOLUME 86 fl (80-97); PLATELET COUNT 191 10^3/uL (150-450); RED BLOOD COUNT 3.28 10^6/uL (4.35-5.55); RED CELL DISTRIBUTION WIDTH 17.3 % (11.5-14.0); WHITE BLOOD COUNT 5.8 10^3/uL (4.0-10.5)
[2018-08-17] MEDS: PANTOPRAZOLE SODIUM 40 MG TABLET.DR PO SCH (06:11)
[2018-08-17] MEDS: AMOXICILLIN TR/POT CLAVULANATE 500-125 MG TAB PO SCH (06:11)
[2018-08-17] MEDS: HEPARIN SOD (PORCINE) 5,000 UNIT/ML 1 ML SYRINGE SUBCUT SCH ×2 (06:11→06:13)
[2018-08-17 06:21] LABS: ANION GAP 7 (5-19); BLOOD UREA NITROGEN 16 mg/dL (7-20); CALCIUM 8.9 mg/dL (8.4-10.2); CARBON DIOXIDE 24 mmol/L (22-30); CHLORIDE 111 mmol/L (98-107); GLUCOSE 82 mg/dL (75-110); SODIUM 142.3 mmol/L (137-145)
[2018-08-17 06:25] LABS: POTASSIUM 4.1 mmol/L (3.6-5.0)
[2018-08-17] MEDS: GUAIFENESIN 600 MG TABLET.SA PO SCH (12:01)
[2018-08-17] MEDS: DIVALPROEX SODIUM 125 MG CAP.SPRINK PO SCH (12:01)
[2018-08-17] MEDS: ASPIRIN 81 MG TABLET, CHEWABLE PO SCH (12:01)
[2018-08-17] MEDS: AMLODIPINE BESYLATE 5 MG TABLET PO SCH (12:01)
--- NOTE | 2018-08-17 12:31 | PDOC TRANSFER SUMMARY ---
General - Admit/Disc Date/PCP Admission Date/Primary Care Provider: 08/14/18 09:36 CRISTINA BOWERS PA-C Discharge Date: 08/17/18 - Discharge Diagnosis (1) Right lower lobe pneumonia Is this a current diagnosis for this admission?: Yes Summary: Improved; normal WBCs, afebrile, and maintaining saturations well on room air. Lung sounds clear though does continue to have productive cough. Chest x-ray reveals a right lower lobe consolidation. Blood have no growth at 72 hours. Sputum cultures growing group B strep and yeast. The patient received 1 dose of IV Rocephin and azithromycin per the ED provider. Patient was admitted to the medical floor and continuous cardiac telemetry and provided supplemental oxygen as needed to maintain saturations >90%. He was assisted with scheduled and as needed nebulizer treatments. Patient was empirically placed on IV Levaquin and renally dose vancomycin (dose per pharmacy). Have transitioned to p.o. Augmentin for completion of therapy. Recommend continuing Mucinex twice daily and as needed Robitussin. He would benefit from continued Chest physiotherapy, if available at SNF, as patient is unable to participate with Incentive spirometer and flutter valve. (2) Sepsis Is this a current diagnosis for this admission?: Yes Summary: Resolved; leukocytosis has resolved, lactic acid is normal, vital signs now stable. Secondary to #1. Present on arrival as evidenced by leukocytosis, tachycardia, tachypnea, hypoxia on room air (initially required BiPAP support), and pneumonia evidenced on CXR. Cultures and antibiotic's as above. (3) HTN (hypertension) Is this a current diagnosis for this admission?: Yes Summary: Continue cardiac diet and outpatient medication regiment. (4) MARIO (acute kidney injury) Is this a current diagnosis for this admission?: Yes Summary: Resolved; Cr 1.71-> 1.30-> 1.09. Baseline 1.16 Multifactorial secondary to dehydration (tachypnea, fever), sepsis, and use of furosemide. Patient's furosemide was briefly held while being provided IVF. Have resumed home medications; tolerating well. (5) Dementia Is this a current diagnosis for this admission?: Yes Summary: Continue home dose Remeron, Depakote, and Ativan. (6) Respiratory distress Is this a current diagnosis for this admission?: Yes Summary: Resolved; patient is now maintaining oxygen saturations while on room air. Secondary to #1. - Additional Information Resuscitation Status: Do Not Resuscitate Discharge Diet: As Tolerated, Regular Discharge Activity: Activity As Tolerated, Balance Activity w/Rest, Supervised Activity Prescriptions: Amox Tr/Potassium Clavulanate [Augmentin "500" Tablet] 1 tab PO Q8 #20 tablet Guaifenesin [Mucinex Sr 600 mg Tablet.sa] 600 mg PO Q12 #14 tablet. Ipratropium/Albuterol Sulfate [Duoneb 3 ml Ampul] 3 ml [facility] RTQ8 #60 [email or web address] Home Medications: Amlodipine Besylate [Norvasc 5 mg Tablet] 5 mg PO DAILY 08/14/18 Aspirin [Aspirin 81 mg Chewable Tablet] 81 mg PO DAILY 08/14/18 Divalproex Sodium [Depakote Sprinkle 125 mg Capsule] 125 mg PO Q12 08/14/18 Docusate Sodium [Colace 100 mg Capsule] 100 mg PO DAILY 08/14/18 Furosemide [Lasix 20 mg Tablet] 20 mg PO DAILY 08/14/18 Hydrocodone/Acetaminophen [[place] 5-325 mg Tablet] 1 tab PO Q8HP PRN 08/14/18 Lorazepam [Ativan 0.5 mg Tablet] 0.5 mg PO Q8HP PRN 08/14/18 Mirtazapine 7.5 mg PO QHS 08/14/18 Acetaminophen [Tylenol 325 mg Tablet] 650 mg PO Q4HP PRN #0 tablet 08/17/18 Amox Tr/Potassium Clavulanate [Augmentin "500" Tablet] 1 tab PO Q8 #20 tablet 08/17/18 Guaifenesin [Mucinex Sr 600 mg Tablet.sa] 600 mg PO Q12 #14 tablet.sa 08/17/18 Guaifenesin [Robitussin Syrup 200 mg/10 ml Ud Cup] 200 mg PO Q4HP PRN udc 08/17/18 Ipratropium/Albuterol Sulfate [Duoneb 3 ml Ampul] 3 ml NEB RTQ8 #60 [email or web address] 08/17/18 History of Present Illness Admission Date/PCP: 08/14/18 09:36 CRISTINA BOWERS PA-C History of Present Illness: JENNIFER Zhong AD is a 87 year old male with a past medical history of dementia, hypertension, hyperlipidemia, dysphasia, iron deficiency anemia, and pacemaker who presented from [facility] with complaint of acute respiratory distress. Per ED provider, patient first began having difficulty breathing last night and a chest x-ray at that facility reportedly showed "white out." Per ED provider the patient was provided nebulizer treatments and Lasix overnight but as he continued to have difficulty breathing EMS was called this morning. He arrived tachypneic with accessory muscle use while on BiPAP support after receiving nebulizer treatments by EMS. Further evaluation in the emergency department shows leukocytosis (WBCs 12.2), baseline anemia (hemoglobin 10.5), unremarkable ABG, MARIO with creatinine of 1.71 (up from baseline of 1.10), normal troponin, and benign urinalysis. EKG demonstrated NSR without acute findings, chest x-ray was read as cardiomegaly without acute findings. However, I agree with Dr. Camargo that he does appear to have a right lower lobe consolidation as compared to previous CXR. He is noted to have a temperature of 100.9, was tachypneic (RR 24) on arrival, was mildly tachycardic (HR 97), but with a normal lactic acid. At the time of my exam was resting comfortably on room air; he was sleeping but woke easily after saying his name. He tells me that he is feeling fine at the moment and denies any pain or discomfort. He does quickly fall back to sleep. He is referred to the hospitalist service for admission and management of a right lower lobe pneumonia with associated respiratory distress. Physical Exam Vital Signs: Temp Pulse Resp BP Pulse Ox 98.0 F 79 16 147/88 H 100 08/17/18 03:13 08/17/18 03:13 08/17/18 03:13 08/17/18 03:13 08/17/18 03:13 Intake & Output 08/16/18 08/17/18 08/18/18 06:59 06:59 06:59 Intake Total 2120 1070 Output Total 1750 Balance 370 1070 Weight 67 kg 67.1 kg Results Laboratory Results: 08/17/18 05:35 08/17/18 05:35 08/17/18 08/17/18 05:35 05:35 WBC 5.8 RBC 3.28 L Hgb 9.3 L Hct 28.2 L MCV 86 MCH 28.5 MCHC 33.1 RDW 17.3 H Plt Count 191 Sodium 142.3 Potassium 4.1 Chloride 111 H Carbon Dioxide 24 Anion Gap 7 BUN 16 Creatinine 1.10 Est GFR ( Amer) > 60 Est GFR (Non-Af Amer) > 60 Glucose 82 Calcium 8.9 08/14/18 08:27 Catheterized Urine Urine Culture - Final Enterococcus Faecalis(Group D) 08/14/18 08/14/18 07:55 07:55 Troponin I 0.016 NT-Pro-B Natriuret Pep 876 H Impressions: Chest X-Ray 08/14/18 07:59 IMPRESSION: Cardiomegaly without acute abnormality of the lungs in AP projection. Transfer Plan - Disposition Transfer Plan: Discharge to SNF where patient is a intermediate resident. - Time Spent with Patient Time spent with patient: Less than 30 Minutes Qualifiers - * PATIENT BEING DISCHARGED WITH ANY OF THE FOLLOWING DIAGNOSIS: No Acute Heart Failure - Is this a Heart Failure Patient?: No Plan Discharge Plan: Discharge to SNF where patient is a intermediate care resident. Follow up with PCP within 1 week. Complete course of antibiotic therapy for treatment of pneumonia. Return to emergency department as needed for concerning symptoms. Time Spent: Greater than 30 Minutes
[2018-08-17 17:03] VITALS: BP 138/72
== END 2018-08-17 16:45 | DRG 871 ==
LOC: ER 07:50 → EH 09:36 → 4S 16:35
PROVIDERS: ADMIT Internal Medicine; ATTEND Internal Medicine
DX: A41.9 Sepsis, unspecified organism (principal); J18.1 Lobar pneumonia, unspecified organism; N17.9 Acute kidney failure, unspecified; F03.91 Unspecified dementia, unspecified severity, with behavioral disturbance; Z66 Do not resuscitate; I10 Essential (primary) hypertension; E78.5 Hyperlipidemia, unspecified; D50.9 Iron deficiency anemia, unspecified; B95.2 Enterococcus as the cause of diseases classified elsewhere; F03.90 Unspecified dementia, unspecified severity, without behavioral disturbance, psychotic disturbance, mood disturbance, and anxiety; E86.0 Dehydration; Z79.899 Other long term (current) drug therapy; Z95.0 Presence of cardiac pacemaker; Z79.82 Long term (current) use of aspirin; Z95.1 Presence of aortocoronary bypass graft
CPT/HCPCS: 36415; 51702; 71045; 80048; 80053; 81001; 82803; 82962; 83605; 83880; 84484; 85025; 85027; 85610; 87040; 87070; 87077; 87086; 87088; 87186; 87205; 93005; 93010; 94640; 94660; 94667; 94799; 96365; 96368; 99291; J0456; J0696; J1630; J1644; J1956; J2060; J3370; J3490; J7030; J7040; J7060; J7620

== ENCOUNTER 2019-01-21 10:28 | Inpatient (IN) | payer MEDICARE, OTHER ==
[2019-01-21 10:59] LABS: ABSOLUTE EOSINOPHILS # (AUTO) 0.1 10^3/uL (0.0-0.6); ABSOLUTE MONOCYTES (AUTO) 1.1 10^3/uL (0.1-1.4); ABSOLUTE NEUT (AUTO) 8.9 10^3/uL (1.7-8.2); BASOPHILS % (AUTO) 0.4 % (0-2); EOSINOPHILS % (AUTO) 0.9 % (0-6); HEMATOCRIT 36.8 % (37.9-51.0); HEMOGLOBIN 12.2 g/dL (13.5-17.0); LYMPHOCYTES % (AUTO) 8.5 % (13-45); MEAN CORPUSCULAR HGB CONC 33.3 g/dL (32.0-36.0); MEAN CORPUSCULAR VOLUME 90 fl (80-97); MONOCYTES % (AUTO) 10.3 % (3-13); PLATELET COUNT 173 10^3/uL (150-450); RED BLOOD COUNT 4.08 10^6/uL (4.35-5.55); RED CELL DISTRIBUTION WIDTH 13.9 % (11.5-14.0); SEGMENTED NEUTROPHILS % (AUTO) 79.9 % (42-78); TOTAL CELLS COUNTED % (AUTO) 100 %; WHITE BLOOD COUNT 11.1 10^3/uL (4.0-10.5)
[2019-01-21 11:09] LABS: VENOUS BLOOD BASE EXCESS 3.1 mmol/L; VENOUS BLOOD HCO3 27.7 mmol/L (20-32); VENOUS BLOOD PCO2 42.1 mmHg (35-63); VENOUS BLOOD PH 7.44 (7.30-7.42)
--- NOTE | 2019-01-21 11:14 | ER Document Report ---
ED General - General Chief Complaint: Breathing Difficulty Stated Complaint: VOMITING Time Seen by Provider: 01/21/19 11:12 TRAVEL OUTSIDE OF THE [place] IN LAST 30 DAYS: No - HPI Notes: 88 male h/o htn, adv dementia, minimally verbal at baseline but can communicate needs wants. 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 he was minimally interacting w/ them eyes open,but sounded like he had significatn rhoncherous upper airway noises. bibems. hr 100s, bp 80s. glu wnl. [facility] rn says their facility physician has DNR order in his chart from 04/2018. he has non-family member, Tirso Aguilar, listed as "ambulatory services representative" [for healthcare decision making] in both [facility] and at [facility], but pt has no MOSt or other portable or legally filed ADs, but tirso 'representtive". Tirso and present to [facility] ED shortly. tirso says he has HPOA. tirso says angela's y/a but beforehand for some time was in and out of hospital and briefly in the care home prior to . tirso says mr. cardozo had already displayed cognitive declines had begun living at [facility], but did have marked loss of some of his functions in this last period of her life's trajectory filled w/ mult transitions of care. he declined faster during this time, but maintained ability to perform his ADLs. Advance care planning note: PARTICIPANTS IN CONVO: myself, josefina beck (see [facility] emr summary=--demographic section) SHORT/LONG-TERM GOC: Mr. Cardozo, he says, was his neighbor when he was a kid, growing up here. Angela and moved from [place] but he'd initially immigrated from [facility]. tirso and he years ago had conversations about what kind of care and lifestyle hed want if he were to become severely ill during the end of his life's trajectory: if he reached point where he couldn't function on on his own to interact w/ others in the any meaningful way or if interventions e.g. mechanical ventilation or aimed at reversing illness were not expected to restore this functional ability he would want tirso to let his doctors know he'd rather focus on interventions and care that might instead restore function and comfort and avoid discomfort. tirso says he believes Mr. March would be ok w/ coming in to the hospital at this point to support his kidneys and ensure he doesn't show signs of burgeoning sepsis, or respiratory failure, though they were risks i worried could be in store for this hospital trajectory. they were ok i shared my concerns and prognostication in that way: i explained in the overall trajectory for frailty and long-term dementia is one of usually slow decline punctated by hospitalizations and increments of declining function and increasing risk for infections as frailty progresses. the latter being usual reason for in this patient population. they understand. PLAN: we all agree from what i've heard pt enjoys himself and his friends at [facility]. isn't predominantly burdened by pain or other sx, and so would they believe be ok coming in to hospital for this reason at this time; though, i didn't discuss utility of other portable forms of AD's e.g. MOST w. them. we did discuss at point when what we can offer abx, intubaton/mv to fight infection or difficulty breathing was unlikely to be consistent w/ his overall goals as above there are options for seeking the hospice benefit fully while he is at [facility] though i am unaware if there is an actual inpatient hospice capability there if patients require certain intensive and constant symptom control for measures for periods of time. - Related Data Allergies/Adverse Reactions: No Known Allergies Allergy (Verified 05/24/18 11:15) Past Medical History - General Information source: POA - Power of Car Detailer, [facility] Records, Outside Facility Records Cannot obtain history due to: Dementia - Social History Smoking Status: Unknown if Ever Smoked Frequency of alcohol use: None Drug Abuse: None Family History: Reviewed & Not Pertinent Patient has suicidal ideation: No Patient has homicidal ideation: No - Past Medical History Cardiac Medical History: Reports: Hx Hypercholesterolemia, Hx Hypertension Denies: Hx Atrial Fibrillation, Hx Congestive Heart Failure, Hx Coronary Artery Disease, Hx Heart Attack, Hx Peripheral Vascular Disease, Hx Pulmonary Embolism, Hx Heart Murmur Pulmonary Medical History: Reports: Hx Asthma - Asthamatic bronchitis , Hx Bronchitis, Hx Pneumonia Denies: Hx COPD, Hx Respiratory Failure, Hx Sleep Apnea, Hx Tuberculosis Neurological Medical History: Denies: Hx Cerebrovascular Accident, Hx Seizures, Hx Parkinson's Disease Renal/ Medical History: Denies: Hx Peritoneal Dialysis Malignancy Medical History: Denies Hx Lung Cancer Musculoskeletal Medical History: Denies Hx Arthritis, Denies Hx Fibromyalgia, Denies Hx Multiple Sclerosis, Denies Hx Muscular Dystrophy Psychiatric Medical History: Reports: Hx Dementia Traumatic Medical History: Reports: Hx Fractures - Curent L tibia and R elbow fx Past Surgical History: Reports: Hx Cardiac Catheterization - pacemaker, Hx Cardiac Surgery - pacemaker, Hx Orthopedic Surgery - ORIF right elbow & left tibia, Hx Pacemaker - 2017. Denies: Hx Appendectomy, Hx Bowel Surgery, Hx Cholecystectomy, Hx Coronary Artery Bypass Graft, Hx Gastric Bypass Surgery, Hx Herniorrhaphy, Hx Tonsillectomy Review of Systems - Review of Systems -: Yes ROS unobtainable due to patient's medical condition Constitutional: No symptoms reported EENT: No symptoms reported Cardiovascular: No symptoms reported Respiratory: No symptoms reported Gastrointestinal: No symptoms reported Genitourinary: No symptoms reported Male Genitourinary: No symptoms reported Musculoskeletal: No symptoms reported Skin: No symptoms reported Hematologic/Lymphatic: No symptoms reported Neurological/Psychological: No symptoms reported Physical Exam - Vital signs Vitals: Resp Pulse Ox 18 97 01/21/19 10:34 01/21/19 10:34 Interpretation: Normal - General Notes: opens eyes to mod stimulation and loud voice tries to answer when i ask his name, jumbled response. otherwise inattentive, but good eye contact for some time, then looks away. no apparent distress ++ predominant rhoncherous rattle upper airway initially. +bs present all [employer] storm[employer] leader b/l lung robles RLL >rhonchi. no significant rales audible i can hear all ext wwp. no decubbical skin berakdown. breathing via mouth. follow command squeezes hands. doesn't move feet, inattentive. no significant wasting. but ++frail good hygiene - HEENT Head: Normocephalic, Atraumatic Eyes: Normal Pupils: PERRL - Respiratory Respiratory status: No respiratory distress Chest status: Nontender Breath sounds: Normal Chest palpation: Normal - Cardiovascular Rhythm: Regular Heart sounds: Normal auscultation Murmur: No - Abdominal Inspection: Normal Distension: No distension Bowel sounds: Normal Tenderness: Nontender Organomegaly: No organomegaly - Back Back: Normal, Nontender - Extremities General upper extremity: Normal inspection, Nontender, Normal color, Normal ROM, Normal temperature General lower extremity: Normal inspection, Nontender, Normal color, Normal ROM, Normal temperature, Normal weight bearing. No: Umesh's sign - Neurological Neuro grossly intact: Yes Cognition: Normal Orientation: AAOx4 [place] Coma Scale Eye Opening: Spontaneous Jarad Coma Scale Verbal: Oriented [place] Coma Scale Motor: Obeys Commands [place] Coma Scale Total: 15 Speech: Normal Motor strength normal: LUE, RUE, LLE, RLE Sensory: Normal - Psychological Associated symptoms: Normal affect, Normal mood - Skin Skin Temperature: Warm Skin Moisture: Dry Skin Color: Normal Course - Re-evaluation Re-evalutation: 01/22/19 00:19 gave 500cc ns, intially gave ctx vanc broadly cxr some rml infiltrate possibly urine clean. kept on nc (is on 3L at times in [place] to 4L & ordered humidified. hospitalist med adm - Vital Signs Vital signs: Temp Pulse Resp BP Pulse Ox 98.0 F 91 14 125/70 100 01/21/19 19:41 01/21/19 19:41 01/21/19 19:41 01/21/19 19:41 01/21/19 19:41 - Laboratory Result Diagrams: 01/21/19 10:40 01/21/19 10:40 Laboratory results interpreted by me: 01/21/19 01/21/19 01/21/19 10:40 10:40 10:40 WBC 11.1 H RBC 4.08 L Hgb 12.2 L Hct 36.8 L Lymph % (Auto) 8.5 L Absolute Neuts (auto) 8.9 H Seg Neutrophils % 79.9 H VBG pH 7.44 H BUN 49 H Creatinine 1.98 H Est GFR ( Amer) 39 L Est GFR (MDRD) Non-Af 32 L Glucose 128 H Discharge - Discharge Clinical Impression: Delirium, MARIO (acute kidney injury), Frailty, Advanced dementia Aspiration into airway Qualifiers: Encounter type: initial encounter Qualified Code(s): T17.908A - Unspecified foreign body in respiratory tract, part unspecified causing other injury, initial encounter Disposition: ADMITTED INPATIENT
[2019-01-21 11:23] LABS: INTERNATIONAL RATION (INR) 1.17
[2019-01-21 11:33] LABS: ALBUMIN 3.8 g/dL (3.5-5.0); ALKALINE PHOSPHATASE 92 U/L (38-126); ANION GAP 12 (5-19); ASPARTATE AMINO TRANSFERASE 21 U/L (17-59); BILIRUBIN,DIRECT 0.1 mg/dL (0.0-0.4); BILIRUBIN,TOTAL 0.6 mg/dL (0.2-1.3); BLOOD UREA NITROGEN 49 mg/dL (7-20); CALCIUM 8.9 mg/dL (8.4-10.2); CARBON DIOXIDE 27 mmol/L (22-30); CHLORIDE 104 mmol/L (98-107); GLUCOSE 128 mg/dL (75-110); POTASSIUM 4.7 mmol/L (3.6-5.0); TOTAL PROTEIN 7.7 g/dL (6.3-8.2)
--- NOTE | 2019-01-21 11:41 | RADIOLOGY REPORT (SQ) ---
EXAM DESCRIPTION: CHEST SINGLE VIEW COMPLETED DATE/TIME: 01/21/2019 11:19 am REASON FOR STUDY: ? aspiration COMPARISON: 08/14/2018 EXAM PARAMETERS: NUMBER OF VIEWS: One view. TECHNIQUE: Single frontal radiographic view of the chest acquired. RADIATION DOSE: NA LIMITATIONS: None. FINDINGS: LUNGS AND PLEURA: No opacities, masses or pneumothorax. No pleural effusion. MEDIASTINUM AND HILAR STRUCTURES: No masses. Contour normal. HEART AND VASCULAR STRUCTURES: Stable heart size. Normal vasculature. BONES: No acute findings. HARDWARE: Stable position of pacemaker. OTHER: No other significant finding. IMPRESSION: NO ACUTE RADIOGRAPHIC FINDING IN THE CHEST. TECHNICAL DOCUMENTATION: JOB ID: [id number] [employer]- All Rights Reserved Reading location - IP/workstation name: [email or web address]
[2019-01-21] MEDS ORDERED: RINGERS SOLUTION,LACTATED 500 ML IV ONE (11:45)
[2019-01-21] MEDS ORDERED: VANCOMYCIN HCL INJ 1000 MG VIAL IV ONE (12:03)
[2019-01-21] MEDS ORDERED: CEFTRIAXONE 1 GM/D5W RTU 1 GM/50 ML RTUPB IV ONE (12:03)
[2019-01-21 14:02] LABS: APPEARANCE,URINE CLEAR; BILIRUBIN,URINE NEGATIVE (NEGATIVE); COLOR,URINE YELLOW; GLUCOSE, URINE NEGATIVE (NEGATIVE); KETONES,URINE NEGATIVE (NEGATIVE); LEUKOCYTE ESTERASE,URINE NEGATIVE (NEGATIVE); NITRITE,URINE NEGATIVE (NEGATIVE); PROTEIN,URINE NEGATIVE (NEGATIVE); UROBILINOGEN,URINE NEGATIVE mg/dL (<2.0)
--- NOTE | 2019-01-21 14:09 | EKG REPORT ---
SEVERITY:- BORDERLINE ECG - SINUS RHYTHM CONSIDER ANTERIOR INFARCT : Confirmed by: Giovanny Desai MD 21-Jan-2019 14:09:22
[2019-01-21] MEDS ORDERED: NORMAL SALINE 1000 ML 1,000 ML IV ONE (16:34)
[2019-01-21] MEDS ORDERED: AMPICILLIN SOD/SULBACTAM 3 GM VIAL IV SCH (17:00)
--- NOTE | 2019-01-21 17:16 | PDOC H&P ---
History of Present Illness Admission Date/PCP: DAMIR SIFUENTES MD Patient complains of: Altered mental status, vomiting History of Present Illness: JENNIFER DUONG is a 88 year old male with a history of advanced dementia, hypertension, hyperlipidemia, dysphagia, iron deficiency anemia and pacemaker placement, presents from [facility] after being found with altered mental status with vomitus in his mouth. Of note patient at baseline is mostly nonverbal but may occasionally make some comments which may sometimes be incoherent. He is estranged to his family and his family members are not involved in his care. He has a court appointed power of collections attorney called Harry Aguilar [[phone]] who is present at bedside and is helping with interview. Apparently, patient was found to be very lethargic at the jail and was gargling. They found that he had vomited. In the ER, patient was noted to be hypotensive. POA also reports the patient was running a low-grade temperature at the correction facility. Patient currently is very lethargic and unable to participate in interview. Past Medical History Cardiac Medical History: Reports: Hyperlipidema, Hypertension Denies: Atrial Fibrillation, Congestive Heart Failure, Coronary Artery Disease, Myocardial Infarction, Peripheral Vascular Disease, Pulmonary Embolism, Heart Murmur Pulmonary Medical History: Reports: Asthma - Asthamatic bronchitis , Bronchitis, Pneumonia Denies: Chronic Obstructive Pulmonary Disease (COPD), Respiratory Failure, Sleep Apnea, Tuberculosis Neurological Medical History: Denies: Seizures Malignancy Medical History: Denies: Lung Cancer Musculoskeltal Medical History: Denies: Arthritis, Fibromyalgia Psychiatric Medical History: Reports: Dementia Hematology: Reports: Anemia - Iron Deficiency Past Surgical History Past Surgical History: Reports: Cardiac Catheterization - pacemaker, Orthopedic Surgery - ORIF right elbow & left tibia, Pacemaker - 2017 Denies: Appendectomy, Cholecystectomy, Coronary Artery Bypass Graft, Gastric Bypass Surgery, Herniorrhaphy, Tonsillectomy Social History Smoking Status: Unknown if Ever Smoked Frequency of Alcohol Use: None Hx Recreational Drug Use: No Drugs: None Hx Prescription Drug Abuse: No - Advance Directive Resuscitation Status: Do Not Resuscitate Surrogate healthcare decision maker:: Tirso Aguilar (Court appointed POA) Family History Family History: Reviewed & Not Pertinent Parental Family History Reviewed: Yes Children Family History Reviewed: NA Sibling(s) Family History Reviewed.: Yes Medication/Allergy Allergies/Adverse Reactions: No Known Allergies Allergy (Verified 05/24/18 11:15) Review of Systems ROS unobtainable: Due to mental status Physical Exam Vital Signs: Temp Pulse Resp BP Pulse Ox 98.5 F 84 15 117/62 100 01/21/19 10:51 01/21/19 10:51 01/21/19 16:31 01/21/19 16:31 01/21/19 16:31 Intake & Output 01/20/19 01/21/19 01/22/19 06:59 06:59 06:59 Intake Total 550 Balance 550 Weight 67.1 kg General appearance: PRESENT: thin Mouth exam: PRESENT: dry mucosa Neck exam: ABSENT: JVD Respiratory exam: PRESENT: rhonchi, symmetrical, unlabored. ABSENT: tachypnea, wheezes Cardiovascular exam: PRESENT: RRR, +S1, +S2. ABSENT: tachycardia GI/Abdominal exam: PRESENT: normal bowel sounds, soft. ABSENT: rebound, rigid, tenderness Neurological exam: PRESENT: altered. ABSENT: alert, awake Results Laboratory Results: 01/21/19 10:40 01/21/19 10:40 01/21/19 01/21/19 01/21/19 10:40 10:40 10:40 WBC 11.1 H RBC 4.08 L Hgb 12.2 L Hct 36.8 L MCV 90 MCH 30.0 MCHC 33.3 RDW 13.9 Plt Count 173 Seg Neutrophils % 79.9 H VBG pH 7.44 H VBG pCO2 42.1 VBG HCO3 27.7 VBG Base Excess 3.1 Sodium 143.4 Potassium 4.7 Chloride 104 Carbon Dioxide 27 Anion Gap 12 BUN 49 H Creatinine 1.98 H Est GFR ( Amer) 39 L Glucose 128 H Calcium 8.9 Total Bilirubin 0.6 AST 21 Alkaline Phosphatase 92 Total Protein 7.7 Albumin 3.8 Urine Color Urine Appearance Urine pH Ur Specific [place] Urine Protein Urine Glucose (UA) Urine Ketones Urine Blood Urine Nitrite Ur Leukocyte Esterase Urine WBC (Auto) Urine RBC (Auto) 01/21/19 13:40 WBC RBC Hgb Hct MCV MCH MCHC RDW Plt Count Seg Neutrophils % VBG pH VBG pCO2 VBG HCO3 VBG Base Excess Sodium Potassium Chloride Carbon Dioxide Anion Gap BUN Creatinine Est GFR ( Amer) Glucose Calcium Total Bilirubin AST Alkaline Phosphatase Total Protein Albumin Urine Color YELLOW Urine Appearance CLEAR Urine pH 5.0 Ur Specific [place] 1.020 Urine Protein NEGATIVE Urine Glucose (UA) NEGATIVE Urine Ketones NEGATIVE Urine Blood NEGATIVE Urine Nitrite NEGATIVE Ur Leukocyte Esterase NEGATIVE Urine WBC (Auto) 2 Urine RBC (Auto) 7 01/21/19 10:40 Troponin I 0.030 Impressions: Chest X-Ray 01/21/19 10:35 IMPRESSION: NO ACUTE RADIOGRAPHIC FINDING IN THE CHEST. Assessment and Plan - Diagnosis (1) Acute metabolic encephalopathy Is this a current diagnosis for this admission?: Yes Plan: Patient is very lethargic and just responsive to painful stimulus. May be secondary to delirium versus potential underlying infection or dehydration Head CT stat (2) Hypotension Is this a current diagnosis for this admission?: Yes Plan: I have called [facility] and verified that patient's last blood pressure measuremen t was on 01/18/2019 and his systolic blood pressure was in the 130s. Prior documented blood pressures have been in the 110s-120s at the [facility] recently. BP currently in the 80s/40s Patient has only received 1 L bolus so I will give him another bolus and start patient on continuous IV fluids Patient does appear dehydrated and will benefit from volume resuscitation There may also be a potential of underlying infection from his chronic aspiration POA has declined use of IV pressors (3) Aspiration into airway Qualifiers: Encounter type: initial encounter Qualified Code(s): T17.908A - Unspecified foreign body in respiratory tract, part unspecified causing other injury, initial encounter Is this a current diagnosis for this admission?: Yes Plan: Patient likely aspirated today when [facility] with vomitus in his mouth Chest x-ray does show some mild haziness in the right lobe but no clear consolidation to be certain of a pneumonia Given leukocytosis, hypotension and patient's aspiration, I will treat for potentially early brewing aspiration pneumonia Blood cultures obtained. Will obtain sputum cultures if possible. Start on Unasyn (4) Advanced dementia Is this a current diagnosis for this admission?: Yes Plan: Patient has significantly advanced dementia predisposing him to further aspiration episodes and dehydration and would likely benefit from palliative services Refer to advanced care planning note for more details (5) MARIO (acute kidney injury) Is this a current diagnosis for this admission?: Yes Plan: Likely secondary to dehydration. Prerenal azotemia is most likely. Check response to IV fluids
--- NOTE | 2019-01-21 17:52 | RADIOLOGY REPORT (SQ) ---
EXAM DESCRIPTION: CT HEAD WITHOUT COMPLETED DATE/TIME: 01/21/2019 5:37 pm REASON FOR STUDY: AMS COMPARISON: 06/18/2018 TECHNIQUE: Axial images acquired through the brain without intravenous contrast. Images reviewed wit h bone, brain and subdural windows. Images stored on PACS. All CT scanners at this facility use dose modulation, iterative reconstruction, and/or weight based d osing when appropriate to reduce radiation dose to as low as reasonably achievable (ALARA). [facility]: Dose Right [facility]: CareDose [facility]: Dose Right [facility]: Teradose 4D [facility]: [employer] Technologies RADIATION DOSE: CT Rad equipment meets quality standard of care and radiation dose reduction techniq ues were employed. CTDIvol: 48.5 mGy. DLP: 904 mGy-cm.. LIMITATIONS: None. FINDINGS: VENTRICLES: Normal size and contour. CEREBRUM: No masses. No hemorrhage. No midline shift. Age appropriate white matter. No evidence for a cute infarction. CEREBELLUM: No masses. No hemorrhage. No alteration of density. No evidence for acute infarction. EXTRA-AXIAL SPACES: No fluid collections. ORBITS AND GLOBE: No intra- or extraconal masses. Normal contour of globe without masses. CALVARIUM: No fracture. PARANASAL SINUSES: No fluid or mucosal thickening. SOFT TISSUES: No mass or hematoma. OTHER: No other significant finding. IMPRESSION: NO ACUTE INTRACRANIAL FINDINGS. EVIDENCE OF ACUTE STROKE: NO. TECHNICAL DOCUMENTATION: JOB ID: [id number] Quality ID # [id number]: Final reports with documentation of one or more dose reduction techniques (e.g., Au tomated exposure control, adjustment of the mA and/or kV according to patient size, use of iterative reconstruction technique) 2010 [employer]- All Rights Reserved Reading location - IP/workstation name: [email or web address]
[2019-01-21] MEDS ORDERED: IPRATROPIUM/ALBUTEROL 0.5-2.5 MG/3 ML AMPUL NEB PRN (17:58)
--- NOTE | 2019-01-21 18:08 | ADVANCED CARE ---
- Diagnosis (1) Acute metabolic encephalopathy Diagnosis Current: Yes (2) Hypotension Diagnosis Current: Yes (3) Aspiration into airway Diagnosis Current: Yes (4) Advanced dementia Diagnosis Current: Yes Attendance: Patient's POA Harry Aguilar [phone]) and POA's and myself Resuscitation Status: Do Not Resuscitate Discussion: We discussed the whereabouts of patient's family. POA informs that he is a court appointed power of criminal defense attorney for the patient and record is with the hospital. Verified by the [facility]. States that patient's family is estranged and did not want to partake in his care. We discussed patient's CODE STATUS which is a DNR/DNI. I also discussed the role of his dementia. Flory belle seems to have advanced dementia as according to POA, patient is mostly nonverbal and does not engage much in any activities. Patient does have history of aspiration pneumonia this year. POA acknowledges that patient has had pretty significant decline in functional status especially over the last 6 months. I have discussed that this problem of dehydration and aspiration are likely to continue to recur given the progression of his dementia. I have discussed the need to start thinking to more towards palliative services and entertaining the idea of comfort care and do not hospitalize status. Patient's POA states that he has thought about these things and will contemplate father about it. As of now, he wants patient to be evaluated for the cause of his problems but declines any overtly aggressive measures such as central line placement, or IV pressors or any other drastic measurements. He is okay with continuing antibiotics and IV fluids. Document(s) Completed: None Time Spent: 40 minutes
[2019-01-21] MEDS: AMPICILLIN SODIUM/SULBACTAM NA 3 GM in NORMAL SALINE 100 ML IV SCH (18:10)
[2019-01-21] MEDS: HEPARIN SOD (PORCINE) 5,000 UNIT/ML 1 ML VIAL SUBCUT SCH (22:01)
[2019-01-21] MEDS: NORMAL SALINE 1000 ML 1,000 ML IV PRN (22:04)
--- NOTE | 2019-01-22 00:34 | ADVANCED CARE ---
- Diagnosis (1) Frailty Diagnosis Current: Yes (2) Dementia Diagnosis Current: Yes Attendance: PARTICIPANTS IN CONVO: myself primary ED doctor, tirsojosefina (see [facility] emr summary=--demographic section) Resuscitation Status: Do Not Resuscitate Discussion: Advance care planning note: Tirso Tovar says, was his neighbor when he was a kid, growing up here. [place] and moved from [place] but he'd initially immigrated from [facility]. tirso and he years ago had conversations about what kind of care and lifestyle hed want if he were to become severely ill during the end of his life's trajectory: if he reached point where he couldn't function on on his own to interact w/ others in the any meaningful way or if interventions e.g. mechanical ventilation or aimed at reversing illness were not expected to restore this functional ability he would want tirso to let his doctors know he'd rather focus on interventions and care that might instead restore function and comfort and avoid discomfort. Care Planning Goals: tirso says he believes Mr. March would be ok w/ coming in to the hospital at this point to support his kidneys and ensure he doesn't show signs of burgeoning sepsis, or respiratory failure, though they were risks i worried could be in store for this hospital trajectory. they were ok i shared my concerns and prognostication in that way: i explained in the overall trajectory for frailty and long-term dementia is one of usually slow decline punctated by hospitalizations and increments of declining function and increasing risk for infections as frailty progresses. the latter being usual reason for in this patient population. they understand. Document(s) Completed: i didn't discuss utility of other portable forms of AD's e.g. MOST w. them. Time Spent: 30 minutes
[2019-01-22 04:58] LABS: ABSOLUTE EOSINOPHILS # (AUTO) 0.4 10^3/uL (0.0-0.6); ABSOLUTE LYMPHOCYTES (AUTO) 1.2 10^3/uL (0.5-4.7); ABSOLUTE MONOCYTES (AUTO) 0.9 10^3/uL (0.1-1.4); ABSOLUTE NEUT (AUTO) 3.8 10^3/uL (1.7-8.2); BASOPHILS % (AUTO) 0.4 % (0-2); EOSINOPHILS % (AUTO) 6.1 % (0-6); HEMATOCRIT 32.6 % (37.9-51.0); LYMPHOCYTES % (AUTO) 18.7 % (13-45); MEAN CORPUSCULAR HEMOGLOBIN 30.5 pg (27.0-33.4); MEAN CORPUSCULAR HGB CONC 33.7 g/dL (32.0-36.0); MEAN CORPUSCULAR VOLUME 91 fl (80-97); MONOCYTES % (AUTO) 14.3 % (3-13); PLATELET COUNT 136 10^3/uL (150-450); RED CELL DISTRIBUTION WIDTH 13.7 % (11.5-14.0); SEGMENTED NEUTROPHILS % (AUTO) 60.5 % (42-78); TOTAL CELLS COUNTED % (AUTO) 100 %; WHITE BLOOD COUNT 6.3 10^3/uL (4.0-10.5)
[2019-01-22 05:21] LABS: ALBUMIN 2.9 g/dL (3.5-5.0); ALKALINE PHOSPHATASE 73 U/L (38-126); ANION GAP 9 (5-19); ASPARTATE AMINO TRANSFERASE 15 U/L (17-59); BILIRUBIN,DIRECT 0.1 mg/dL (0.0-0.4); BILIRUBIN,TOTAL 0.5 mg/dL (0.2-1.3); BLOOD UREA NITROGEN 39 mg/dL (7-20); CALCIUM 8.5 mg/dL (8.4-10.2); CARBON DIOXIDE 27 mmol/L (22-30); CHLORIDE 108 mmol/L (98-107); GLUCOSE 97 mg/dL (75-110); POTASSIUM 4.1 mmol/L (3.6-5.0); TOTAL PROTEIN 6.4 g/dL (6.3-8.2)
[2019-01-22] MEDS: AMPICILLIN SODIUM/SULBACTAM NA 3 GM in NORMAL SALINE 100 ML IV SCH ×2 (06:09→19:19)
[2019-01-22] MEDS: NORMAL SALINE 1000 ML 1,000 ML IV PRN (06:11)
[2019-01-22] MEDS: HEPARIN SOD (PORCINE) 5,000 UNIT/ML 1 ML VIAL SUBCUT SCH ×3 (06:12→21:57)
[2019-01-22] MEDS ORDERED: HYDROCODONE/ACETAMINOPHEN 5-325 MG TABLET PO PRN (10:11)
[2019-01-22] MEDS ORDERED: ACETAMINOPHEN 325 MG TABLET PO PRN (10:11)
[2019-01-22] MEDS ORDERED: GUAIFENESIN SYRP 200 MG/10 ML UDC PO PRN (10:11)
--- NOTE | 2019-01-22 10:20 | PDOC PROGRESS REPORT ---
Subjective Progress Note for:: 01/22/19 Subjective:: Patient looks a little bit better today. He is more awake. He knows his name and able to understand that he has a pneumonia but not doing much else of communication. Reason For Visit: HYPOTENSION SEPSIS ASPIRATION PNEUMONIA Physical Exam Vital Signs: Temp Pulse Resp BP Pulse Ox 98.2 F 70 20 121/64 93 01/22/19 06:53 01/22/19 07:00 01/22/19 06:53 01/22/19 06:53 01/22/19 06:53 Intake & Output 01/21/19 01/22/19 01/23/19 06:59 06:59 06:59 Intake Total 2624 Output Total 765 Balance 1859 Weight 66.8 kg General appearance: PRESENT: no acute distress, cooperative Respiratory exam: PRESENT: rhonchi, unlabored. ABSENT: accessory muscle use, chest wall tenderness, retraction, tachypnea, wheezes Cardiovascular exam: PRESENT: RRR, +S1, +S2. ABSENT: tachycardia Neurological exam: PRESENT: alert, awake, oriented to person. ABSENT: oriented to place, oriented to time Results Laboratory Results: 01/22/19 04:33 01/22/19 04:33 01/21/19 01/21/19 01/21/19 10:40 10:40 10:40 WBC 11.1 H RBC 4.08 L Hgb 12.2 L Hct 36.8 L MCV 90 MCH 30.0 MCHC 33.3 RDW 13.9 Plt Count 173 Seg Neutrophils % 79.9 H VBG pH 7.44 H VBG pCO2 42.1 VBG HCO3 27.7 VBG Base Excess 3.1 Sodium 143.4 Potassium 4.7 Chloride 104 Carbon Dioxide 27 Anion Gap 12 BUN 49 H Creatinine 1.98 H Est GFR ( Amer) 39 L Glucose 128 H Calcium 8.9 Magnesium Total Bilirubin 0.6 AST 21 Alkaline Phosphatase 92 Total Protein 7.7 Albumin 3.8 Urine Color Urine Appearance Urine pH Ur Specific [place] Urine Protein Urine Glucose (UA) Urine Ketones Urine Blood Urine Nitrite Ur Leukocyte Esterase Urine WBC (Auto) Urine RBC (Auto) 01/21/19 01/22/19 01/22/19 13:40 04:33 04:33 WBC 6.3 RBC 3.60 L Hgb 11.0 L Hct 32.6 L MCV 91 MCH 30.5 MCHC 33.7 RDW 13.7 Plt Count 136 L Seg Neutrophils % 60.5 VBG pH VBG pCO2 VBG HCO3 VBG Base Excess Sodium 143.8 Potassium 4.1 Chloride 108 H Carbon Dioxide 27 Anion Gap 9 BUN 39 H Creatinine 1.58 H Est GFR ( Amer) 50 L Glucose 97 Calcium 8.5 Magnesium 2.4 H Total Bilirubin 0.5 AST 15 L Alkaline Phosphatase 73 Total Protein 6.4 Albumin 2.9 L Urine Color YELLOW Urine Appearance CLEAR Urine pH 5.0 Ur Specific [place] 1.020 Urine Protein NEGATIVE Urine Glucose (UA) NEGATIVE Urine Ketones NEGATIVE Urine Blood NEGATIVE Urine Nitrite NEGATIVE Ur Leukocyte Esterase NEGATIVE Urine WBC (Auto) 2 Urine RBC (Auto) 7 01/21/19 10:40 Troponin I 0.030 Impressions: Head CT 01/21/19 00:00 IMPRESSION: NO ACUTE INTRACRANIAL FINDINGS. EVIDENCE OF ACUTE STROKE: NO. Chest X-Ray 01/21/19 10:35 IMPRESSION: NO ACUTE RADIOGRAPHIC FINDING IN THE CHEST. Assessment and Plan - Diagnosis (1) Acute metabolic encephalopathy Is this a current diagnosis for this admission?: Yes Plan: Patient is very lethargic and just responsive to painful stimulus. May be secondary to delirium versus potential underlying infection or dehydration Head CT 01/22/19 Patient is more awake today AAO x1 and responds with short statements to some questions only Head CT negative (2) Hypotension Is this a current diagnosis for this admission?: Yes Plan: I have called [facility] and verified that patient's last blood pressure measurement was on 01/18/2019 and his systolic blood pressure was in the 130s. Prior documented blood pressures have been in the 110s-120s at the [facility] recently. BP currently in the 80s/40s Patient has only received 1 L bolus so I will give him another bolus and start patient on continuous IV fluids Patient does appear dehydrated and will benefit from volume resuscitation There may also be a potential of underlying infection from his chronic aspiration POA has declined use of IV pressors 01/22/2019 Hypotension has resolved with administration of IV fluids and antibiotics (3) Aspiration into airway Qualifiers: Encounter type: initial encounter Qualified Code(s): T17.908A - Unspecified foreign body in respiratory tract, part unspecified causing other injury, initial encounter Is this a current diagnosis for this admission?: Yes Plan: Patient likely aspirated today when found at the senior living with vomitus in his mouth Chest x-ray does show some mild haziness in the right lobe but no clear consolidation to be certain of a pneumonia Given leukocytosis, hypotension and patient's aspiration, I will treat for potentially early brewing aspiration pneumonia. I will treat as aspiration pneumonia. Blood cultures obtained. Will obtain sputum cultures if possible. Unasyn 01/22/2019 Continue treating as acute aspiration pneumonia with Unasyn. Follow-up blood cultures. Speech therapist to do swallow evaluation. (4) Advanced dementia Is this a current diagnosis for this admission?: Yes Plan: Patient has significantly advanced dementia predisposing him to further aspiration episodes and dehydration and would likely benefit from palliative services. Consult placed. Refer to advanced care planning note for more details (5) MARIO (acute kidney injury) Is this a current diagnosis for this admission?: Yes Plan: Likely secondary to dehydration. Prerenal azotemia is most likely. Improving with IV fluids. (6) Dehydration Is this a current diagnosis for this admission?: Yes Plan: Gentle hydration with D5 half-normal saline Still n.p.o. given aspiration while awaiting swallow evaluation. - Time Time Spent with patient: Less than 15 minutes
[2019-01-22] MEDS: DEXTROSE 5%-1/2 NORMAL SALINE 1,000 ML IV PRN (13:37)
[2019-01-22] MEDS: DIVALPROEX SODIUM 125 MG CAP.SPRINK PO SCH (21:57)
[2019-01-22] MEDS: MIRTAZAPINE 15 MG TABLET PO SCH (21:57)
[2019-01-23] MEDS: DEXTROSE 5%-1/2 NORMAL SALINE 1,000 ML IV PRN ×2 (01:13→16:30)
[2019-01-23] MEDS: HEPARIN SOD (PORCINE) 5,000 UNIT/ML 1 ML VIAL SUBCUT SCH ×3 (05:38→22:21)
[2019-01-23] MEDS: AMPICILLIN SODIUM/SULBACTAM NA 3 GM in NORMAL SALINE 100 ML IV SCH ×2 (06:20→17:14)
[2019-01-23 06:51] LABS: ABSOLUTE EOSINOPHILS # (AUTO) 0.4 10^3/uL (0.0-0.6); ABSOLUTE LYMPHOCYTES (AUTO) 0.9 10^3/uL (0.5-4.7); ABSOLUTE MONOCYTES (AUTO) 0.6 10^3/uL (0.1-1.4); ABSOLUTE NEUT (AUTO) 2.3 10^3/uL (1.7-8.2); BASOPHILS % (AUTO) 0.6 % (0-2); EOSINOPHILS % (AUTO) 10.1 % (0-6); HEMATOCRIT 30.5 % (37.9-51.0); HEMOGLOBIN 10.3 g/dL (13.5-17.0); LYMPHOCYTES % (AUTO) 21.9 % (13-45); MEAN CORPUSCULAR HEMOGLOBIN 30.5 pg (27.0-33.4); MEAN CORPUSCULAR HGB CONC 33.7 g/dL (32.0-36.0); MEAN CORPUSCULAR VOLUME 91 fl (80-97); MONOCYTES % (AUTO) 13.5 % (3-13); PLATELET COUNT 132 10^3/uL (150-450); RED BLOOD COUNT 3.36 10^6/uL (4.35-5.55); RED CELL DISTRIBUTION WIDTH 13.5 % (11.5-14.0); SEGMENTED NEUTROPHILS % (AUTO) 53.9 % (42-78); TOTAL CELLS COUNTED % (AUTO) 100 %; WHITE BLOOD COUNT 4.2 10^3/uL (4.0-10.5)
[2019-01-23 07:17] LABS: ALBUMIN 2.8 g/dL (3.5-5.0); ALKALINE PHOSPHATASE 68 U/L (38-126); ANION GAP 5 (5-19); ASPARTATE AMINO TRANSFERASE 18 U/L (17-59); BILIRUBIN,DIRECT 0.2 mg/dL (0.0-0.4); BILIRUBIN,TOTAL 0.5 mg/dL (0.2-1.3); BLOOD UREA NITROGEN 23 mg/dL (7-20); CALCIUM 8.4 mg/dL (8.4-10.2); CARBON DIOXIDE 27 mmol/L (22-30); CHLORIDE 110 mmol/L (98-107); GLUCOSE 107 mg/dL (75-110); POTASSIUM 3.8 mmol/L (3.6-5.0); TOTAL PROTEIN 6.2 g/dL (6.3-8.2)
[2019-01-23] MEDS ORDERED: FUROSEMIDE 20 MG TABLET PO SCH (08:00)
[2019-01-23] MEDS: AMLODIPINE BESYLATE 5 MG TABLET PO SCH (09:13)
[2019-01-23] MEDS: DOCUSATE SODIUM 100 MG CAPSULE PO SCH (09:13)
[2019-01-23] MEDS: ASPIRIN 81 MG TABLET, CHEWABLE PO SCH (09:13)
[2019-01-23] MEDS: DIVALPROEX SODIUM 125 MG CAP.SPRINK PO SCH ×2 (09:16→22:19)
--- NOTE | 2019-01-23 09:30 | ST Inp Modified Barium Swallow ---
Medical Diagnosis - Medical Diagnoses Medical Diagnosis Description & ICD-10 Code(s): acute metabolic encephalopathy, aspiration into airway - ICD-10 Tx Diagnosis Coding (1) Dysphagia ICD-10 Code(s): R13.10 - DYSPHAGIA, UNSPECIFIED ST Inpatient MBS - General Date: 01/23/19 Date of Onset: 01/21/19 - admit date - History -: Medical - Patient admitted 01/21/19 with altered mental status and vomiting. History includes: advanced dementia, hypertension, hyperlipidemia, dysphagia, iron deficiency anemia, and pacemaker placement. Patient resident of [place]. Patient found in [place] [facility] with altered mental status and vomitus in mouth. Found very lethargic and "gargling". Per ED nursing note, SNF suctioned nearly 500 mL of oral secretions from patient. Current diagnoses include acute metabolic encephalopathy (only response to painful stimuli 01/21), hypotension, aspiration into airway (chest x-ray shows some mild haziness in right lobe but no clear consolidation to be certain pneumonia; likely aspirated in SNF when found with vomitus in mouth), advanced dementia, acute kidney injury. ST contacted [facility] and patient was on regular diet with no added salt per [employer] [facility]. RN reported patient is very hungry and has been asking to eat. Reports have put in palliative care consult. Also reports that POA has discussed aspiration before - thinks aspirated when vomitted and before. Medications: Medications Reviewed Allergies: No known allergies - Subjective Current Nutritional Means: NPO Current PO Diet: N/A (NPO) Current Symptoms: Coughing, Pneumonia Pain: Patient reports, 0/5 - Objective Assessment: Upright, Left Lateral - Food Trials Food Trials Used: Thin liquids, Pureed, Soft solids - Assessment Labial Function: Within Normal Limits Lingual Function: Within Functional Limits Mandibular Function: Impaired Dentition: Edentulous Velo-Pharyngeal Function: Unremarkable Laryngeal Function: weak voicing - Pharyngeal Stage Initiation of Pharyngeal Stage: Delayed Decreased Laryngeal Elevation: No Reduced Velo-Pharyngeal Closure: no Reduced Pressure Generation: Yes Reduced Tongue Base Retraction: Yes Pre-Swallowing Pooling in Valleculae: Significant Pre-Swallowing Pooling in Pyriforms: Significant Reduced Thyro-Hyiod Approximation: No Reduced Epiglottic Excursion: No Reduced Pharyngeal Peristalsis: No Multiple Swallows With: Cleared w/ Dry Swallow Post Swallow Residuals in Valleculae: Moderate Post Swallow Residuals in Pyriforms: Moderate Pahryngeal Stage Comments: Patient demonstrated very discoordinated swallow, with bolus falling from oral phase into pharynx without any oral control or propulsion. Bolus was fully in valleculae/pyrifom sinus prior to swallow being triggered (3-5 seconds). Once swallow was triggered, adequate airway closure seen. Residue was seen in valleculae and pyriform after the swallow, patient required cue for second swallow to clear. Second swallow cleared majority of residue. - Impression/Summary Laryngeal Penetration: Yes, during swallow - with straw sips of thin liquids Tracheal Aspiration: no Patient Presents With: Pharyngeal stage dysph., Severe Risk of Aspiration: Moderate - Patient is at moderate to severe risk of aspiration due to significant discoordination of the swallow and pharyngeal residue. Patient is also coughing frequently due to pneumonia, which places patient at higher risk of inhaling food particles inadvertently. - Recommendations Solid Diet Recommendations: Pureed - patient was able to adequately manage soft solid during study, however, due to edentulous status and frequent coughing, puree is recommended to reduce risk of inhalation of food particles during a coughing jag. Liquid Diet Recommendations: Thin Strict Aspitarion Precautions: Yes Dysphagia Therapy with CHEMICAL MAKER: No Recommended Techniques: Fully Upright During Meal, Small Bites and Sips Other Recommendations: Recommendations discussed with RN and physician. Dr. Wray in agreement with recommendations at this time. Diet order placed by therapist per physician direction. - Time Total Time: 30 Total Timed Minutes: 30
--- NOTE | 2019-01-23 11:16 | RADIOLOGY REPORT (SQ) ---
EXAM DESCRIPTION: DARWIN SWALLOW COMPLETED DATE/TIME: 01/23/2019 9:00 am REASON FOR STUDY: Aspiration, Dementia. COMPARISON: None. TECHNIQUE: Videofluoroscopic swallowing examination was performed in conjunction with speech patholo gy. Videofluoroscopic imaging was obtained and reviewed and these are the findings: RADIATION DOSE: 3 minutes 55 seconds of fluoroscopy time. LIMITATIONS: None FINDINGS: The patient was brought into the fluoro room and placed upright on a modified barium swall ow chair. The patient was then given multiple consistencies mixed with barium to swallow under live fluoroscopic video guidance. According to the Speech Pathologist there was laryngeal penetration. N o aspiration seen. Weak and discoordinated swallow with spillage over the base tongue pooling in the vallecula and piriform sinuses. Moderate post swallow residuals. IMPRESSION: LARYNGEAL PENETRATION WITHOUT ASPIRATION SEEN. PLEASE SEE SPEECH PATHOLOGIST REPORT FOR OTHER FINDINGS AND RECOMMENDATIONS. COMMENT: Quality ID [id number]: Final reports for procedures using fluoroscopy that document radiation exp osure indices, or exposure time and number of fluorographic images (if radiation exposure indices are not available) TECHNICAL DOCUMENTATION: JOB ID: [id number] [employer]- All Rights Reserved Reading location - IP/workstation name: [email or web address]
--- NOTE | 2019-01-23 14:50 | PDOC PROGRESS REPORT ---
Subjective Progress Note for:: 01/23/19 Subjective:: Patient is resting comfortably in bed this morning. Appears to be at his baseline state with underlying advanced dementia. He did undergo modified barium swallow earlier today. Nasal cannula in place. Reason For Visit: HYPOTENSION SEPSIS ASPIRATION PNEUMONIA Physical Exam Vital Signs: Temp Pulse Resp BP Pulse Ox 97.7 F 62 18 124/63 100 01/23/19 12:05 01/23/19 12:05 01/23/19 12:05 01/23/19 12:05 01/23/19 12:05 Intake & Output 01/22/19 01/23/19 01/24/19 06:59 06:59 06:59 Intake Total 2624 2200 100 Output Total 765 1020 175 Balance 1859 1180 -75 Weight 66.8 kg 69.4 kg General appearance: PRESENT: no acute distress, well-developed, well-nourished Head exam: PRESENT: atraumatic, normocephalic Ear exam: PRESENT: normal external ear exam. ABSENT: bleeding, drainage Mouth exam: PRESENT: dry mucosa, tongue midline Respiratory exam: PRESENT: rhonchi, symmetrical, unlabored. ABSENT: accessory muscle use, rales, tachypnea, wheezes Cardiovascular exam: PRESENT: RRR, +S1, +S2 GI/Abdominal exam: PRESENT: normal bowel sounds, soft. ABSENT: distended, tenderness Rectal exam: PRESENT: deferred Neurological exam: PRESENT: alert, awake, oriented to person Psychiatric exam: ABSENT: agitated, anxious Skin exam: PRESENT: dry, warm, other - Thin skin with occasional ecchymotic lesion Results Laboratory Results: 01/23/19 06:36 01/23/19 06:36 01/23/19 01/23/19 06:36 06:36 WBC 4.2 RBC 3.36 L Hgb 10.3 L Hct 30.5 L MCV 91 MCH 30.5 MCHC 33.7 RDW 13.5 Plt Count 132 L Seg Neutrophils % 53.9 Sodium 141.9 Potassium 3.8 Chloride 110 H Carbon Dioxide 27 Anion Gap 5 BUN 23 H Creatinine 1.19 Est GFR ( Amer) > 60 Glucose 107 Calcium 8.4 Total Bilirubin 0.5 AST 18 Alkaline Phosphatase 68 Total Protein 6.2 L Albumin 2.8 L 01/21/19 10:40 Troponin I 0.030 Impressions: Head CT 01/21/19 00:00 IMPRESSION: NO ACUTE INTRACRANIAL FINDINGS. EVIDENCE OF ACUTE STROKE: NO. Chest X-Ray 01/21/19 10:35 IMPRESSION: NO ACUTE RADIOGRAPHIC FINDING IN THE CHEST. Modified Barium Swallow 01/23/19 00:00 IMPRESSION: LARYNGEAL PENETRATION WITHOUT ASPIRATION SEEN. PLEASE SEE SPEECH PATHOLOGIST REPORT FOR OTHER FINDINGS AND RECOMMENDATIONS. Assessment and Plan - Diagnosis (1) Sepsis Qualifiers: Sepsis type: sepsis due to unspecified organism Sepsis acute organ dysfunction status: with acute organ dysfunction Severe sepsis acute organ dysfunction type: acute renal failure Acute renal failure type: with acute tubular necrosis Severe sepsis shock status: without septic shock Qualified Code(s): A41.9 - Sepsis, unspecified organism; R65.20 - Severe sepsis without septic shock; N17.0 - Acute kidney failure with tubular necrosis Is this a current diagnosis for this admission?: Yes Plan: 01/23/2019-qualifies by elevated creatinine, hypoxemia and encephalopathy although chronic advanced dementia by history. Likely cause pneumonia secondary to aspiration from advanced dementia. Resolved with antibiotics, oxygen and fluid (2) Acute respiratory failure with hypoxia Is this a current diagnosis for this admission?: Yes Plan: 01/23/2019-secondary aspiration pneumonia. Antibiotics and supplemental oxygen (3) Acute metabolic encephalopathy Is this a current diagnosis for this admission?: Yes Plan: 01/23/2019-secondary to sepsis from aspiration pneumonia on top of advanced dementia. Treat underlying conditions. Appears to be improving. (4) Aspiration into airway Qualifiers: Encounter type: initial encounter Qualified Code(s): T17.908A - Unspecified foreign body in respiratory tract, part unspecified causing other injury, initial encounter Is this a current diagnosis for this admission?: Yes Plan: 01/23/2019-clinically present. Not supported by imaging. Risk factors include advanced dementia, advanced age and frailty. Will improving with dual antibiotic therapy. Covering for bacteria present in the oral stephen including staph, strep and gram-negative organisms. Modified barium swallow earlier showed no abby aspiration but there is some pooling. Following speech therapies diet recommendations pure with thin liquids. (5) MARIO (acute kidney injury) Is this a current diagnosis for this admission?: Yes Plan: 01/23/2019-secondary to sepsis with acute tubular necrosis. Resolving with IV fluids and antibiotics as well as improved blood pressure. (6) Hypotension Qualifiers: Hypotension type: hypotension due to hypovolemia Qualified Code(s): I95.89 - Other hypotension; E86.1 - Hypovolemia Is this a current diagnosis for this admission?: Yes Plan: 01/23/2019-due to sepsis and decreased oral intake at the retirement. Re solved. Consider resuming medications for hypertension. (7) Advanced dementia Is this a current diagnosis for this admission?: Yes Plan: 01/23/2019-chronic and progressive. Appears improved from admission. Acute decline secondary to sepsis now resolving. - Plan Summary Summary: 01/23/2019-complete antibiotic therapy. Maintain DNR status. Return to shelter. - Time Time Spent with patient: 25-34 minutes Medications reviewed and adjusted accordingly: Yes Anticipated discharge: SNF Within: within 48 hours
[2019-01-23] MEDS: MIRTAZAPINE 15 MG TABLET PO SCH (22:18)
[2019-01-24] MEDS: HEPARIN SOD (PORCINE) 5,000 UNIT/ML 1 ML VIAL SUBCUT SCH (05:12)
[2019-01-24 05:34] LABS: ABSOLUTE EOSINOPHILS # (AUTO) 0.5 10^3/uL (0.0-0.6); ABSOLUTE LYMPHOCYTES (AUTO) 1.1 10^3/uL (0.5-4.7); ABSOLUTE MONOCYTES (AUTO) 0.7 10^3/uL (0.1-1.4); ABSOLUTE NEUT (AUTO) 3.2 10^3/uL (1.7-8.2); BASOPHILS % (AUTO) 0.4 % (0-2); EOSINOPHILS % (AUTO) 9.6 % (0-6); HEMATOCRIT 30.7 % (37.9-51.0); HEMOGLOBIN 10.4 g/dL (13.5-17.0); LYMPHOCYTES % (AUTO) 19.9 % (13-45); MEAN CORPUSCULAR HEMOGLOBIN 30.6 pg (27.0-33.4); MEAN CORPUSCULAR HGB CONC 33.9 g/dL (32.0-36.0); MEAN CORPUSCULAR VOLUME 90 fl (80-97); PLATELET COUNT 142 10^3/uL (150-450); RED BLOOD COUNT 3.41 10^6/uL (4.35-5.55); RED CELL DISTRIBUTION WIDTH 13.3 % (11.5-14.0); SEGMENTED NEUTROPHILS % (AUTO) 58.1 % (42-78); TOTAL CELLS COUNTED % (AUTO) 100 %; WHITE BLOOD COUNT 5.5 10^3/uL (4.0-10.5)
[2019-01-24] MEDS: AMPICILLIN SODIUM/SULBACTAM NA 3 GM in NORMAL SALINE 100 ML IV SCH (05:58)
--- NOTE | 2019-01-24 08:55 | PDOC TRANSFER SUMMARY ---
Impression - Admit/DC Date/PCP Admission Date/Primary Care Provider: 01/21/19 17:20 DAMIR SIFUENTES MD Discharge Date: 01/24/19 - Discharge Diagnosis (1) Sepsis Is this a current diagnosis for this admission?: Yes (2) Acute respiratory failure with hypoxia Is this a current diagnosis for this admission?: Yes (3) Acute metabolic encephalopathy Is this a current diagnosis for this admission?: Yes (4) Aspiration into airway Is this a current diagnosis for this admission?: Yes (5) MARIO (acute kidney injury) Is this a current diagnosis for this admission?: Yes (6) Hypotension Is this a current diagnosis for this admission?: Yes (7) Advanced dementia Is this a current diagnosis for this admission?: Yes - Assessment Summary: 01/23/2019-complete antibiotic therapy. Maintain DNR status. Return to [facility]. - Additional Information Resuscitation Status: Do Not Resuscitate Discharge Diet: Other (Comments) - Pure with thin liquids Discharge Activity: Activity As Tolerated Referrals: DAMIR SIFUENTES MD [Primary Care Provider] - Follow up as needed Prescriptions: Hydrocodone/Acetaminophen [[place] 5-325 mg Tablet] 1 tab PO Q8HP PRN 5 Days #5 tab PRN Reason: For Pain Home Medications: Acetaminophen [Tylenol] 650 mg PO Q4HP PRN 01/21/19 Amlodipine Besylate [Norvasc 5 mg Tablet] 5 mg PO QAM 01/21/19 Ascorbic Acid [Vitamin C 500 mg Tablet] 500 mg PO DAILY 01/21/19 Aspirin [Aspirin 81 mg Chewable Tablet] 81 mg PO QAM 01/21/19 Divalproex Sodium [Depakote Sprinkle 125 mg Capsule] 250 mg PO Q12 01/21/19 Docusate Sodium [Colace 100 mg Capsule] 100 mg PO QAM 01/21/19 Furosemide [Lasix 20 mg Tablet] 20 mg PO QAM 01/21/19 Guaifenesin [Diabetic Siltussin Albrecht-Na] 10 ml PO Q4HP PRN 01/21/19 Ipratropium/Albuterol Sulfate [Duoneb 3 ml Ampul] 3 ml NEB RTQ6HP PRN 01/21/19 Mirtazapine 7.5 mg PO QHS 01/21/19 Multivitamin with Minerals [One Daily Plus Minerals] 1 each PO DAILY 01/21/19 Zinc Sulfate [Zinc-220] 220 mg PO DAILY 01/21/19 Ampicillin Sodium/Sulbactam Na [Unasyn Inj 3 gm Vial] 3 gm IV Q12A vial 01/24/19 Hydrocodone/Acetaminophen [[place] 5-325 mg Tablet] 1 tab PO Q8HP PRN 5 Days #5 tab 01/24/19 Mirtazapine [Remeron 15 mg Tablet] 7.5 mg PO QHS tablet 01/24/19 History of Present Illiness History of Present Illness: JENNIFER DUONG is a 88 year old male who is a long-term resident of [facility]. It was observed that he was having mental status change and he was referred to the emergency department. In the emergency department he was found to have a right-sided pneumonia with changes in mental status above his baseline advanced dementia. He also exhibited some low blood pressure and need for increased oxygen supplementation as well as acute on chronic kidney injury. Patient was referred to the hospital service for admission. Hospital Course Hospital Course: The patient had a fairly unremarkable hospital course. With IV fluids and antibiotics he began to improve. He still require several days of antibiotic therapy for his aspiration pneumonia. Modified barium swallow showed no abby aspiration but there is some pooling and he requires pured diet with thin liquids. His sepsis resolves and his acute kidney injury resolved as well. The patient appears to be back at baseline. It is not known whether he is on chronic oxygen therapy at [facility]. If not then we will try and wean his oxygen to off. In addition the patient will require a hospice consult at [facility] to decide further treatment options. Physical Exam Vital Signs: Temp Pulse Resp BP Pulse Ox 97.5 F 60 20 138/68 H 99 01/24/19 03:20 01/24/19 07:00 01/24/19 03:20 01/24/19 03:20 01/24/19 03:20 Intake & Output 01/23/19 01/24/19 01/25/19 06:59 06:59 06:59 Intake Total 2200 1440 Output Total 1020 1250 Balance 1180 190 Weight 69.4 kg 69.7 kg General appearance: PRESENT: no acute distress Respiratory exam: PRESENT: rhonchi - Improved from yesterday., symmetrical, unlabored. ABSENT: prolonged expiratory phas, tachypnea, wheezes Cardiovascular exam: PRESENT: RRR, +S1, +S2 GI/Abdominal exam: PRESENT: normal bowel sounds, soft. ABSENT: distended, tenderness Gentrourinary exam: PRESENT: indwelling catheter Neurological exam: PRESENT: alert, awake, oriented to person Psychiatric exam: ABSENT: agitated, anxious Results Laboratory Results: WBC 5.5 10^3/uL (4.0-10.5) 01/24/19 04:42 RBC 3.41 10^6/uL (4.35-5.55) L 01/24/19 04:42 Hgb 10.4 g/dL (13.5-17.0) L 01/24/19 04:42 Hct 30.7 % (37.9-51.0) L 01/24/19 04:42 MCV 90 fl (80-97) 01/24/19 04:42 MCH 30.6 pg (27.0-33.4) 01/24/19 04:42 MCHC 33.9 g/dL (32.0-36.0) 01/24/19 04:42 RDW 13.3 % (11.5-14.0) 01/24/19 04:42 Plt Count 142 10^3/uL (150-450) L 01/24/19 04:42 Lymph % (Auto) 19.9 % (13-45) 01/24/19 04:42 [place] % (Auto) 12.0 % (3-13) 01/24/19 04:42 Eos % (Auto) 9.6 % (0-6) H 01/24/19 04:42 Baso % (Auto) 0.4 % (0-2) 01/24/19 04:42 Absolute Neuts (auto) 3.2 10^3/uL (1.7-8.2) 01/24/19 04:42 Absolute Lymphs (auto) 1.1 10^3/uL (0.5-4.7) 01/24/19 04:42 Absolute Monos (auto) 0.7 10^3/uL (0.1-1.4) 01/24/19 04:42 Absolute Eos (auto) 0.5 10^3/uL (0.0-0.6) 01/24/19 04:42 Absolute Basos (auto) 0.0 10^3/uL (0.0-0.2) 01/24/19 04:42 Seg Neutrophils % 58.1 % (42-78) 01/24/19 04:42 PT 15.0 SEC (11.4-15.4) 01/21/19 10:40 INR 1.17 01/21/19 10:40 VBG pH 7.44 (7.30-7.42) H 01/21/19 10:40 VBG pCO2 42.1 mmHg (35-63) 01/21/19 10:40 VBG HCO3 27.7 mmol/L (20-32) 01/21/19 10:40 VBG Base Excess 3.1 mmol/L 01/21/19 10:40 Sodium 141.9 mmol/L (137-145) 01/23/19 06:36 Potassium 3.8 mmol/L (3.6-5.0) 01/23/19 06:36 Chloride 110 mmol/L (98-107) H 01/23/19 06:36 Carbon Dioxide 27 mmol/L (22-30) 01/23/19 06:36 Anion Gap 5 (5-19) 01/23/19 06:36 BUN 23 mg/dL (7-20) H 01/23/19 06:36 Creatinine 1.19 mg/dL (0.52-1.25) 01/23/19 06:36 Est GFR ( Amer) > 60 (>60) 01/23/19 06:36 Est GFR (MDRD) Non-Af 58 (>60) L 01/23/19 06:36 Glucose 107 mg/dL (75-110) 01/23/19 06:36 POC Glucose 114 mg/dL (70-110) H 01/23/19 06:18 Lactic Acid (Sepsis) 1.8 mmol/L (0.7-2.1) 01/21/19 19:49 Calcium 8.4 mg/dL (8.4-10.2) 01/23/19 06:36 Magnesium 2.4 mg/dL (1.6-2.3) H 01/22/19 04:33 Total Bilirubin 0.5 mg/dL (0.2-1.3) 01/23/19 06:36 Direct Bilirubin 0.2 mg/dL (0.0-0.4) 01/23/19 06:36 Neonat Total Bilirubin Not Reportable 01/23/19 06:36 Neonat Direct Bilirubin Not Reportable 01/23/19 06:36 Neonat Indirect Bili Not Reportable 01/23/19 06:36 AST 18 U/L (17-59) 01/23/19 06:36 ALT 9 U/L (<50) 01/23/19 06:36 Alkaline Phosphatase 68 U/L (38-126) 01/23/19 06:36 Troponin I 0.030 ng/mL 01/21/19 10:40 Total Protein 6.2 g/dL (6.3-8.2) L 01/23/19 06:36 Albumin 2.8 g/dL (3.5-5.0) L 01/23/19 06:36 Urine Color YELLOW 01/21/19 13:40 Urine Appearance CLEAR 01/21/19 13:40 Urine pH 5.0 (5.0-9.0) 01/21/19 13:40 Ur Specific [place] 1.020 01/21/19 13:40 Urine Protein NEGATIVE mg/dL (NEGATIVE) 01/21/19 13:40 Urine Glucose (UA) NEGATIVE mg/dL (NEGATIVE) 01/21/19 13:40 Urine Ketones NEGATIVE mg/dL (NEGATIVE) 01/21/19 13:40 Urine Blood NEGATIVE (NEGATIVE) 01/21/19 13:40 Urine Nitrite NEGATIVE (NEGATIVE) 01/21/19 13:40 Urine Bilirubin NEGATIVE (NEGATIVE) 01/21/19 13:40 Urine Urobilinogen NEGATIVE mg/dL (<2.0) 01/21/19 13:40 Ur Leukocyte Esterase NEGATIVE (NEGATIVE) 01/21/19 13:40 Urine WBC (Auto) 2 /HPF 01/21/19 13:40 Urine RBC (Auto) 7 /HPF 01/21/19 13:40 U Hyaline Cast (Auto) 47 /LPF 01/21/19 13:40 Urine Mucus (Auto) OCC /LPF 01/21/19 13:40 Urine Ascorbic Acid NEGATIVE (NEGATIVE) 01/21/19 13:40 01/21/19 10:40 Troponin I 0.030 Impressions: Head CT 01/21/19 00:00 IMPRESSION: NO ACUTE INTRACRANIAL FINDINGS. EVIDENCE OF ACUTE STROKE: NO. Chest X-Ray 01/21/19 10:35 IMPRESSION: NO ACUTE RADIOGRAPHIC FINDING IN THE CHEST. Modified Barium Swallow 01/23/19 00:00 IMPRESSION: LARYNGEAL PENETRATION WITHOUT ASPIRATION SEEN. PLEASE SEE SPEECH PATHOLOGIST REPORT FOR OTHER FINDINGS AND RECOMMENDATIONS. Plan Health Concerns: Poor long-term prognosis due to advanced dementia, weakening and increased risk of aspiration with likely recurrent aspiration pneumonia Plan of Treatment: The patient will continue IV antibiotics through the . He needs to be on pured diet but thin liquids are acceptable. Strict aspiration precautions. Resume medications. The patient will obtain a consult for hospice care when he returns to [facility]. Monitor renal function especially if oral intake is poor. Consider discontinuing Lasix if needed. Goals: Complete antibiotics and reassess long-term plans Time Spent: Greater than 30 Minutes Stroke Is this a Stroke Patient?: No Acute Heart Failure - Is this a Heart Failure Patient?: No
[2019-01-24] MEDS: DIVALPROEX SODIUM 125 MG CAP.SPRINK PO SCH (09:06)
[2019-01-24] MEDS: DOCUSATE SODIUM 100 MG CAPSULE PO SCH (09:06)
[2019-01-24] MEDS: ASPIRIN 81 MG TABLET, CHEWABLE PO SCH (09:06)
[2019-01-24] MEDS: AMLODIPINE BESYLATE 5 MG TABLET PO SCH (09:06)
[2019-01-24 12:46] VITALS: BP 120/63
== END 2019-01-24 14:30 | DRG 871 ==
LOC: ER 10:28 → EH 17:20 → 3N 19:25
PROVIDERS: ADMIT Internal Medicine; ATTEND Internal Medicine
DX: A41.9 Sepsis, unspecified organism (principal); J96.01 Acute respiratory failure with hypoxia; N17.0 Acute kidney failure with tubular necrosis; G93.41 Metabolic encephalopathy; I95.9 Hypotension, unspecified; F03.90 Unspecified dementia, unspecified severity, without behavioral disturbance, psychotic disturbance, mood disturbance, and anxiety; E86.0 Dehydration; Z66 Do not resuscitate; I10 Essential (primary) hypertension; E78.5 Hyperlipidemia, unspecified; R13.10 Dysphagia, unspecified; D50.9 Iron deficiency anemia, unspecified; J45.909 Unspecified asthma, uncomplicated; Z79.82 Long term (current) use of aspirin; Z95.0 Presence of cardiac pacemaker
CPT/HCPCS: 36415; 51701; 70450; 71045; 74230; 80053; 81001; 82803; 82962; 83605; 83735; 84484; 85025; 85610; 87040; 93005; 93010; 96361; 96365; 96368; 99285; J0295; J0696; J1644; J3370; J3490; J7030; J7050; J7120

== ENCOUNTER → 2019-05-28 | Outpatient (CLI) | payer MEDICARE, OTHER ==
[2019-05-28 12:03] LABS: ABSOLUTE BASOPHILS # (AUTO) 0.1 10^3/uL (0.0-0.2); ABSOLUTE EOSINOPHILS # (AUTO) 0.4 10^3/uL (0.0-0.6); ABSOLUTE LYMPHOCYTES (AUTO) 1.6 10^3/uL (0.5-4.7); ABSOLUTE MONOCYTES (AUTO) 0.6 10^3/uL (0.1-1.4); ABSOLUTE NEUT (AUTO) 3.3 10^3/uL (1.7-8.2); BASOPHILS % (AUTO) 0.9 % (0-2); HEMATOCRIT 33.6 % (37.9-51.0); HEMOGLOBIN 11.5 g/dL (13.5-17.0); LYMPHOCYTES % (AUTO) 27.6 % (13-45); MEAN CORPUSCULAR HEMOGLOBIN 31.3 pg (27.0-33.4); MEAN CORPUSCULAR HGB CONC 34.3 g/dL (32.0-36.0); MEAN CORPUSCULAR VOLUME 91 fl (80-97); MONOCYTES % (AUTO) 9.4 % (3-13); PLATELET COUNT 178 10^3/uL (150-450); RED BLOOD COUNT 3.68 10^6/uL (4.35-5.55); RED CELL DISTRIBUTION WIDTH 14.2 % (11.5-14.0); SEGMENTED NEUTROPHILS % (AUTO) 56.1 % (42-78); TOTAL CELLS COUNTED % (AUTO) 100 %
== END ==
LOC: PNR 11:55
PROVIDERS: ATTEND Family Medicine
DX: N17.9 Acute kidney failure, unspecified (principal)
CPT/HCPCS: 85025

== ENCOUNTER 2020-01-30 13:42 | Emergency (ER) | payer MEDICARE, OTHER ==
[2020-01-30 14:29] LABS: ABSOLUTE LYMPHOCYTES (AUTO) 1.1 10^3/uL (0.5-4.7); ABSOLUTE MONOCYTES (AUTO) 0.9 10^3/uL (0.1-1.4); ABSOLUTE NEUT (AUTO) 11.7 10^3/uL (1.7-8.2); BASOPHILS % (AUTO) 0.2 % (0-2); HEMATOCRIT 36.7 % (37.9-51.0); HEMOGLOBIN 12.2 g/dL (13.5-17.0); LYMPHOCYTES % (AUTO) 7.9 % (13-45); MEAN CORPUSCULAR HEMOGLOBIN 30.2 pg (27.0-33.4); MEAN CORPUSCULAR HGB CONC 33.3 g/dL (32.0-36.0); MEAN CORPUSCULAR VOLUME 91 fl (80-97); MONOCYTES % (AUTO) 6.8 % (3-13); PLATELET COUNT 155 10^3/uL (150-450); RED BLOOD COUNT 4.04 10^6/uL (4.35-5.55); RED CELL DISTRIBUTION WIDTH 14.5 % (11.5-14.0); SEGMENTED NEUTROPHILS % (AUTO) 85.1 % (42-78); TOTAL CELLS COUNTED % (AUTO) 100 %; WHITE BLOOD COUNT 13.7 10^3/uL (4.0-10.5)
--- NOTE | 2020-01-30 14:38 | ER Document Report ---
ED General - General Chief Complaint: Breathing Difficulty Stated Complaint: BREATHING DIFFICULTY Time Seen by Provider: 01/30/20 14:23 Primary Care Provider: DAMIR SIFUENTES MD [Primary Care Provider] - 02/03/20 Notes: Patient is an 89-year-old male who comes emergency department from primary [facility]- term [facility] for chief complaint of fever. Patient was already noted to be COVID-19 positive at the facility per report, he was again tested in the ambulance and was found to be COVID-19 positive. Patient was found to be 88% oxygen saturation on room air by EMS. Patient has a history of advanced dementia and is nonverbal at baseline. Patient is unable to interact or give any meaningful history. He also has a history of hypertension, hyperlipidemia, and a pacemaker. Patient is DNR paperwork with him. TRAVEL OUTSIDE OF THE [place] IN LAST 30 DAYS: No - Related Data Allergies/Adverse Reactions: No Known Allergies Allergy (Verified 05/24/18 11:15) Past Medical History - General Information source: Transfer Record, Emergency Med Personnel - Social History Smoking Status: Unknown if Ever Smoked Frequency of alcohol use: None Drug Abuse: None Lives with: [facility] Family History: Reviewed & Not Pertinent - Past Medical History Cardiac Medical History: Reports: Hx Hypercholesterolemia, Hx Hypertension Denies: Hx Atrial Fibrillation, Hx Congestive Heart Failure, Hx Coronary Artery Disease, Hx Heart Attack, Hx Peripheral Vascular Disease, Hx Pulmonary Embolism, Hx Heart Murmur Pulmonary Medical History: Reports: Hx Asthma - Asthamatic bronchitis , Hx Bronchitis, Hx Pneumonia Denies: Hx COPD, Hx Respiratory Failure, Hx Sleep Apnea, Hx Tuberculosis Neurological Medical History: Denies: Hx Cerebrovascular Accident, Hx Seizures, Hx Parkinson's Disease Renal/ Medical History: Denies: Hx Peritoneal Dialysis Malignancy Medical History: Denies Hx Lung Cancer Musculoskeletal Medical History: Denies Hx Arthritis, Denies Hx Fibromyalgia, Denies Hx Multiple Sclerosis, Denies Hx Muscular Dystrophy Psychiatric Medical History: Reports: Hx Dementia Traumatic Medical History: Reports: Hx Fractures - Curent L tibia and R elbow fx Past Surgical History: Reports: Hx Cardiac Catheterization - pacemaker, Hx Cardiac Surgery - pacemaker, Hx Orthopedic Surgery - ORIF right elbow & left t ibia, Hx Pacemaker - 2017. Denies: Hx Appendectomy, Hx Bowel Surgery, Hx Cholecystectomy, Hx Coronary Artery Bypass Graft, Hx Gastric Bypass Surgery, Hx Herniorrhaphy, Hx Tonsillectomy - Immunizations Immunizations up to date: Yes Hx Diphtheria, Pertussis, Tetanus Vaccination: Yes Review of Systems - Review of Systems Constitutional: See HPI EENT: No symptoms reported Cardiovascular: No symptoms reported Respiratory: No symptoms reported Gastrointestinal: No symptoms reported Genitourinary: No symptoms reported Male Genitourinary: No symptoms reported Musculoskeletal: No symptoms reported Skin: No symptoms reported Hematologic/Lymphatic: No symptoms reported Neurological/Psychological: No symptoms reported Physical Exam - Vital signs Vitals: Resp 17 01/30/20 14:07 - Notes Notes: GENERAL: Awake, does not interact, does not appear to be in distress HEAD: Normocephalic, atraumatic. EYES: Pupils equal, round, and reactive to light. Extraocular movements intact. ENT: Oral mucosa moist, tongue midline. Oropharynx unremarkable. Airway patent. NECK: Full range of motion. Supple. Trachea midline. No lymphadenopathy. LUNGS: Clear to auscultation bilaterally, no wheezes, rales, or rhonchi. No respiratory distress. Non-tender chest wall. HEART: Regular rate and rhythm. No murmur ABDOMEN: Soft, non-tender. Non-distended. EXTREMITIES: Moves all 4 extremities spontaneously. No edema, normal radial and dorsalis pedis pulses bilaterally. No cyanosis. BACK: no cervical, thoracic, lumbar midline tenderness. No saddle anesthesia, normal distal neurovascular exam. Moves all extremities in full range of motion. NEUROLOGICAL: Awake but nonverbal at baseline. Does not cooperate with exam. SKIN: Warm, dry, normal turgor. No rashes or lesions noted. Course - Re-evaluation Re-evalutation: Patient nonverbal at baseline, not able to provide any meaningful history. No signs of distress on exam. Lungs clear. Patient is not hypoxic, I took him off of the 2 L nasal cannula and monitor for an extended period, initially we had a very poor reading for the pulse oximetry, this was serviced by the fire range technician and after this oxygen was at lowest of 94% and consistently higher. Chest x-ray unremarkable. CBC nonspecific, chemistry shows elevated renal functioning compared to prior, this was rechecked and improved with IV fluids. Troponin elevated but downtrending, EKG nonischemic. Urinalysis unremarkable. Blood cultures pending. Lactate 2.5. Patient is already known to be COVID-19 positive. On evaluation the vital signs unremarkable and patient still does not have any signs of distress. I discussed patient with Dr. Lynn. Patient is a told, nonverbal, advanced dementia, DNR, and she does not feel patient would benefit from admission at this time, she recommends discharge with return precautions. Patient discharged back to SNF, blood cultures pending. - Vital Signs Vital signs: Temp Pulse Resp BP Pulse Ox 98 F 14 103/71 93 01/30/20 17:41 01/30/20 18:01 01/30/20 18:01 01/30/20 18:01 - Laboratory Results Result Diagrams: 01/30/20 14:02 01/30/20 17:38 Laboratory Results Interpreted: 01/30/20 01/30/20 01/30/20 14:02 14:02 14:02 WBC 13.7 H RBC 4.04 L Hgb 12.2 L Hct 36.7 L RDW 14.5 H Lymph % (Auto) 7.9 L Absolute Neuts (auto) 11.7 H Seg Neutrophils % 85.1 H BUN 49 H Creatinine 2.74 H Est GFR ( Amer) 27 L Est GFR (MDRD) Non-Af 22 L Glucose 123 H Lactic Acid 2.5 H 01/30/20 17:38 WBC RBC Hgb Hct RDW Lymph % (Auto) Absolute Neuts (auto) Seg Neutrophils % BUN 50 H Creatinine 2.15 H Est GFR ( Amer) 35 L Est GFR (MDRD) Non-Af 29 L Glucose 123 H Lactic Acid Critical Laboratory Results Reviewed: No Critical Results - Radiology Results Critical Radiology Results Reviewed: No Critical Results - EKG Interpretation by Me Additional EKG results interpreted by me: EKG shows sinus rhythm at a rate of 75, QTC 456, TX interval of 204, normal axis, no T wave inversions or ST segment changes in consecutive leads Discharge - Discharge Clinical Impression: Acute renal insufficiency, COVID-19 Fever Qualifiers: Fever type: unspecified Qualified Code(s): R50.9 - Fever, unspecified Condition: Stable Disposition: SNF-Other Additional Instructions: No pneumonia or other infection is noted at this time. Please recheck kidney functioning within the next several days with primary care. We have blood cultures pending and you will be contacted for any concerning results. Return to the emergency department for any concerning or worsening symptoms. Referrals: DAMIR SIFUENTES MD [Primary Care Provider] - 02/03/20
[2020-01-30 14:39] LABS: INTERNATIONAL RATION (INR) 1.04; PROTHROMBIN TIME 13.8 SEC (11.4-15.4)
[2020-01-30 14:47] LABS: ALBUMIN 3.8 g/dL (3.5-5.0); ALKALINE PHOSPHATASE 81 U/L (38-126); ANION GAP 9 (5-19); ASPARTATE AMINO TRANSFERASE 24 U/L (17-59); BILIRUBIN,DIRECT 0.2 mg/dL (0.0-0.4); BILIRUBIN,TOTAL 0.5 mg/dL (0.2-1.3); BLOOD UREA NITROGEN 49 mg/dL (7-20); CALCIUM 9.3 mg/dL (8.4-10.2); CARBON DIOXIDE 29 mmol/L (22-30); CHLORIDE 101 mmol/L (98-107); GLUCOSE 123 mg/dL (75-110); POTASSIUM 4.8 mmol/L (3.6-5.0); TOTAL PROTEIN 7.6 g/dL (6.3-8.2)
--- NOTE | 2020-01-30 15:23 | RADIOLOGY REPORT (SQ) ---
EXAM DESCRIPTION: CHEST SINGLE VIEW IMAGES COMPLETED DATE/TIME: 01/30/2020 3:12 pm REASON FOR STUDY: fever, hypoxia COMPARISON: 01/21/2019 EXAM PARAMETERS: NUMBER OF VIEWS: One view. TECHNIQUE: Single frontal radiographic view of the chest acquired. RADIATION DOSE: NA LIMITATIONS: None. FINDINGS: LUNGS AND PLEURA: Stable left lung base scar or atelectasis. No acute pulmonary consolid ation. No pneumothorax or pleural effusion. MEDIASTINUM AND HILAR STRUCTURES: No masses. Contour normal. HEART AND VASCULAR STRUCTURES: Heart normal in size. Normal vasculature. BONES: No acute findings. HARDWARE: Cardiac pacemaker, stable finding. OTHER: No other significant finding. IMPRESSION: 1. No significant interval changes since the prior study dated 02/01/2019. Stable left lung base atelectasis or scar. No acute findings. TECHNICAL DOCUMENTATION: JOB ID: [id number] 2010 [employer]- All Rights Reserved Reading location - IP/workstation name: [email or web address]
[2020-01-30] MEDS ORDERED: NORMAL SALINE 1000 ML 1,000 ML IV ONE (15:32)
[2020-01-30 17:10] LABS: APPEARANCE,URINE CLEAR; BILIRUBIN,URINE NEGATIVE (NEGATIVE); COLOR,URINE YELLOW; GLUCOSE, URINE NEGATIVE (NEGATIVE); KETONES,URINE NEGATIVE (NEGATIVE); LEUKOCYTE ESTERASE,URINE NEGATIVE (NEGATIVE); NITRITE,URINE NEGATIVE (NEGATIVE); PROTEIN,URINE NEGATIVE (NEGATIVE); URINE SPECIFIC GRAVITY 1.016; UROBILINOGEN,URINE NEGATIVE mg/dL (<2.0)
[2020-01-30 18:05] LABS: ANION GAP 6 (5-19); BLOOD UREA NITROGEN 50 mg/dL (7-20); CALCIUM 8.6 mg/dL (8.4-10.2); CARBON DIOXIDE 26 mmol/L (22-30); CHLORIDE 106 mmol/L (98-107); GLUCOSE 123 mg/dL (75-110); POTASSIUM 4.7 mmol/L (3.6-5.0)
[2020-01-30 19:10] VITALS: BP 95/62
--- NOTE | 2020-01-30 21:33 | EKG REPORT ---
SEVERITY:- NORMAL ECG - SINUS RHYTHM : Confirmed by: Elizabet Bell MD 30-Jan-2020 21:33:02
== END 2020-01-30 20:02 ==
LOC: ER 13:42
DX: U07.1 COVID-19 (principal); N28.9 Disorder of kidney and ureter, unspecified; R50.9 Fever, unspecified; R79.89 Other specified abnormal findings of blood chemistry; J45.909 Unspecified asthma, uncomplicated; F03.90 Unspecified dementia, unspecified severity, without behavioral disturbance, psychotic disturbance, mood disturbance, and anxiety; I10 Essential (primary) hypertension; Z95.0 Presence of cardiac pacemaker; Z66 Do not resuscitate
CPT/HCPCS: 93005; 99285; 96360; 36415; 87040; 83605; 85025; 85610; 80053; 81001; 84484; 87804; 71045; 93010; J7030